=== PATIENT | male | born 1940 | race Caucasian/White ===

== ENCOUNTER → 2017-10-20 09:27 | Outpatient (CLI) | payer MEDICARE, OTHER, SELFPAY ==
[2017-10-20 09:39] LABS: RBC Urine None Seen (0-5/HPF); WBC Urine None Seen (0-5/HPF)
[2017-10-20 10:34] LABS: Add Manual Diff / Slide Review NO; Basophils Percent Auto 0.3 % (0-2); Hematocrit 51.2 % (41-53); Hemoglobin 17.3 g/dL (13.5-17.5); Lymphocytes Percent Auto 25.8 % (25-40); Mean Corpuscular HGB Conc 33.7 % (30-36); Mean Corpuscular Hemoglobin 31.5 PG (26-34); Mean Corpuscular Volume 93.5 fL (80-100); Monocytes Percent Auto 13.3 % (3-14); Neutrophils Absolute Auto 3400 /uL (3000-5900); Neutrophils Percent Auto 56.6 % (50-75); Platelet Count 123 X10^3/uL (150-400); Red Blood Cell Count 5.48 X10^6/uL (4.5-5.9); Red Cell Distribution Width 14.3 % (11.6-14.8); White Blood Cell Count 5.9 X10^3/uL (4.5-11.0)
[2017-10-20 10:41] LABS: Hemoglobin A1C% w Est Avg Glu 6.1 % (4.0-6.0)
[2017-10-20 10:45] LABS: Appearance Urine UA CLEAR; Bilirubin Urine UA NEGATIVE (NEGATIVE); Color Urine UA YELLOW; Glucose Urine UA NEGATIVE (Normal); Ketones Urine UA NEGATIVE (NEGATIVE); Leukocyte Esterase Urine UA NEGATIVE (NEGATIVE); Nitrite Urine UA Negative (Negative); Occult Blood Urine UA NEGATIVE (Negative); Protein Urine UA NEGATIVE (Negative); Urobilinogen Urine UA 0.2 E.U./dL (0.2)
[2017-10-20 11:10] LABS: Amorphous Sediment Urine 1+; Bacteria Urine Occasional (0-1); Culture Indicated Urine Cult Not Indicated; Mucus Urine 1+ (Negative)
[2017-10-20 11:15] LABS: Alanine Aminotransferase 34 IU/L (21-72); Albumin 4.5 g/dL (3.5-5.0); Albumin Globulin Ratio 1.6 (1.0-2.8); Alkaline Phosphatase 58 U/L (38-126); Aspartate Aminotransferase 39 IU/L (17-59); Bilirubin Total 0.8 mg/dL (0.2-1.3); Blood Urea Nitrogen 25 mg/dL (9-20); Calcium 9.7 mg/dL (8.4-10.2); Carbon Dioxide 32 mmol/L (22-32); Chloride 102 mmol/L (98-107); Estimated Glomerular Filt Rate > 60.0 mL/min (>60); Globulin 2.9 g/dL (1.7-4.1); Glucose 113 mg/dL (80-110); HEMOLYSIS < 15 (0-50); Lipase 97 U/L (23-300); Potassium 5.1 mmol/L (3.4-5.1); Sodium 143 mmol/L (137-145); Total Protein 7.4 g/dL (6.3-8.2)
== END ==
PROVIDERS: Family Provider Family Medicine; PCP Family Medicine; Visit Provider Internal Medicine
DX: R10.9 Unspecified abdominal pain (principal); R73.03 Prediabetes
CPT/HCPCS: 36415; 80053; 81001; 83036; 83690; 84443; 85025

== ENCOUNTER → 2017-10-24 07:35 | Outpatient (CLI) | payer MEDICARE, OTHER, SELFPAY ==
[2017-10-24 09:20] LABS: Blood Urea Nitrogen 16 mg/dL (9-20); Estimated Glomerular Filt Rate > 60.0 mL/min (>60)
== END ==
PROVIDERS: Family Provider Family Medicine; PCP Family Medicine; Visit Provider Family Medicine
DX: Z01.812 Encounter for preprocedural laboratory examination (principal)
CPT/HCPCS: 36415; 82565; 84520

== ENCOUNTER → 2017-10-27 10:18 | Outpatient (CLI) | payer MEDICARE, OTHER, SELFPAY ==
--- NOTE | 2017-10-27 10:36 | DI.CT.S_ITS ---
PROCEDURE: CT ABDOMEN PELVIS WO/W CON INDICATIONS: flank pain TECHNIQUE: Optional 5 mm thick noncontrast images acquired from the diaphragm to the symphysis pubis. After the administration of intravenous contrast, 5 mm thick images acquired from the diaphragm to the symphysis pubis after a 10-minute delay. 2 mm thick coronal and sagittal reformats were then performed of the kidneys and ureters. For radiation dose reduction, the following was used: automated exposure control, adjustment of mA and/or kV according to patient size. COMPARISON: None. FINDINGS: Image quality: Excellent. Lung bases: Lung bases are clear. Heart size is normal. Urinary system: Both kidneys are normal in size, without hydronephrosis or nephrolithiasis on pre-contrast images. No perinephric fat stranding. There is normal bilateral renal enhancement. Renal calyces appear normal in morphology when filled with contrast. Opacified portions of both ureters demonstrate normal caliber. Bladder wall thickness is normal. No calcified bladder stones. Other solid organs: Liver is normal in size and enhancement. Gallbladder is partially contracted. Biliary system is non dilated. Pancreas enhances normally. Spleen is normal in size and enhancement but contains scattered punctate granulomatous calcifications. No adrenal nodules. Peritoneum and bowel: Bowel loops demonstrate normal wall thickness and caliber. No free fluid or air. Nodes and vessels: No retroperitoneal or mesenteric adenopathy by size criteria. Aorta and inferior vena cava are normal in size. Abdominal wall: No ventral hernias. Pelvis: No pathologic free pelvic fluid. No inguinal hernias or adenopathy. Extensive sigmoid diverticulosis without acute diverticulitis Bones: No suspicious bony lesions. No vertebral body compression fractures. IMPRESSION: A definite source of current reported persistent flank pain on the right for 6 months is not seen. No hydronephrosis or nephrolithiasis or underlying renal cortical or urothelial mass lesion is seen. Extensive sigmoid diverticulosis but without acute diverticulitis. Old calcified splenic granulomas. Dictated by: Brett Archuleta M.D. on 10/27/2017 at 12:43 Approved by: Brett Archuleta M.D. on 10/27/2017 at 12:46
== END ==
PROVIDERS: Family Provider Family Medicine; PCP Family Medicine; Visit Provider Family Medicine
DX: K57.30 Diverticulosis of large intestine without perforation or abscess without bleeding (principal); R10.9 Unspecified abdominal pain
CPT/HCPCS: 74178; Q9967

== ENCOUNTER → 2018-01-06 07:35 | Outpatient (CLI) | payer MEDICARE, OTHER, SELFPAY ==
[2018-01-06 09:12] LABS: Prostate Specific Antigen Scrn 1.42 ng/mL (0.1-4.0)
== END ==
PROVIDERS: PCP Family Medicine; Visit Provider Family Medicine
DX: N13.8 Other obstructive and reflux uropathy (principal); N40.1 Benign prostatic hyperplasia with lower urinary tract symptoms; Z12.5 Encounter for screening for malignant neoplasm of prostate
CPT/HCPCS: 36415; G0103

== ENCOUNTER → 2018-01-16 08:18 | Outpatient (CLI) | payer MEDICARE, OTHER, SELFPAY ==
[2018-01-16 08:54] LABS: Cholesterol 162 mg/dL (140-199); HDL Cholesterol 49 mg/dL (40-60); LDL Cholesterol Calculated 94 mg/dL (<100); Triglycerides 97 mg/dL (35-150)
== END ==
PROVIDERS: PCP Family Medicine; Visit Provider Family Medicine
DX: R01.1 Cardiac murmur, unspecified (principal)
CPT/HCPCS: 36415; 80061

== ENCOUNTER → 2018-02-11 09:30 | Outpatient (CLI) | payer MEDICARE, OTHER, SELFPAY ==
--- NOTE | 2018-02-11 09:31 | DI.US.S_ITS ---
PROCEDURE: US CAROTID DOPPLER BI INDICATIONS: CAROTID BRUIT TECHNIQUE: Color and pulse Doppler interrogation was performed of both carotid systems, with image documentation and velocity measurements. COMPARISON: None. FINDINGS: Stenosis calculations are based on SRU (Society of Radiologists in Ultrasound) criteria. Right side: Brachial blood pressure: 140/78 mm Hg. Common carotid artery peak systolic velocity: 86 cm/sec. Internal carotid artery peak systolic velocity: 82 cm/sec. Internal carotid artery end diastolic velocity: 24 cm/sec. External carotid artery peak systolic velocity: 104 cm/sec. ICA/CCA peak systolic ratio: 1.0. Ash scale imaging description: Minimal scattered plaque. Percent internal carotid artery stenosis: Less than 50%. Vertebral artery: Not visualized. Left side: Brachial blood pressure: 139/81 mm Hg. Common carotid artery peak systolic velocity: 89 cm/sec. Internal carotid artery peak systolic velocity: 104 cm/sec. Internal carotid artery end diastolic velocity: 22 cm/sec. External carotid artery peak systolic velocity: 113 cm/sec. ICA/CCA peak systolic ratio: 1.2. Ash scale imaging description: Mild scattered plaque. Percent internal carotid artery stenosis: Less than 50%. Vertebral artery: Flow direction is antegrade. IMPRESSION: Less than 50% bilateral internal carotid artery stenoses. Dictated by: Mauro Mcdonald [facility] Interpreted: Keagan Ochoa MD on 02/11/2018 at 11:30 Approved by: Keagan Ochoa M.D. on 02/11/2018 at 12:35
== END ==
PROVIDERS: Family Provider Family Medicine; PCP Family Medicine; Visit Provider Family Medicine
DX: I65.23 Occlusion and stenosis of bilateral carotid arteries (principal); R09.89 Other specified symptoms and signs involving the circulatory and respiratory systems
CPT/HCPCS: 93880

== ENCOUNTER 2018-07-19 05:11 | Observation (INO) | payer MEDICARE, OTHER, SELFPAY ==
[2018-07-19] VITALS (23 sets, daily range): BP systolic 145–179; BP diastolic 64–110; PULSE 75–126; RESP 13–27; TEMP 36.2–37.4; O2SAT 92–97; BMI 29.5
--- NOTE | 2018-07-19 | DI.ECHO.S_ITS ---
[facility]---------+ [facility] +---------+ : : [address] : : : [place], [place] : : : : [id number] : : : : Phone: [phone]+ Echocardiogram Report + + :Name: ELDER SHERWOOD Study Date: 07/19/2018 Height: 70 in : :[facility] Exam Location: [place] Weight: 211 lb : : Gender: Male BSA: 2.1 m2 : :: 1940 Age: 78 yrs BP: 160/87 mmHg: :Reason For Study: Thrombus : :Ordering Physician: Arian : :Hospitalist Performed By: Shamika Page : :Referring: ROJELIO NUÑEZ : + + Interpretation Summary Normal left ventricle size with ejection fraction 60-65%. A bicuspid aortic valve cannot be excluded. Mild aortic stenosis. Mild mitral annular calcification. Mild tricuspid regurgitation. Comparison is made with the echocardiogram of 11/20/2015, there has been no significant change. Procedure: A two-dimensional transthoracic echocardiogram with color flow and Doppler was performed. The study quality was technically adequate. Comparison is made with the echocardiogram of 11/20/2015. The subcostal views were difficult to obtain and are suboptimal in quality. The patient was in normal sinus rhythm during the exam. Left Ventricle: The left ventricle is normal in size. There is normal left ventricular wall thickness. The ejection fraction is estimated to be 60-65%. There are no focal wall motion abnormalities. Diastolic parameters suggest probable normal left ventricular diastolic function and normal filling pressures. Right Ventricle: The right ventricle is normal in size and function. Atria: Both atria are normal in size. There is no Doppler evidence for an interatrial shunt. Mitral Valve: The mitral valve leaflets appear mildly thickened, but open well. There is mild mitral annular calcification. There is trace mitral regurgitation. Aortic Valve: The aortic valve is moderately calcified. A bicuspid aortic valve cannot be excluded. There is mild aortic stenosis. The peak aortic velocity is 2.5 m/sec. The peak aortic velocity on the previous exam was 2.6 m/sec. The calculated aortic valve area is 1.6 cm2. The aortic valve mean gradient is 14.0 mmHg. There is trace aortic regurgitation. Tricuspid Valve: The tricuspid valve is normal in structure and function. There is mild tricuspid regurgitation. Right ventricular systolic pressure is estimated to be 29 mmHg plus the clinically estimated CVP which cannot be estimated on this exam. Pulmonic Valve: The pulmonic valve is not well visualized. There is no pulmonic valvular regurgitation. Great Vessels: The aortic root is normal size. The ascending aorta is normal in size. The pulmonary artery is not well visualized, but is probably normal size. The inferior vena cava was not visualized. Pericardium/ Pleura There is no pericardial effusion. There is no pleural effusion. MMode/2D Measurements & Calculations LVIDd: 3.8 cm LVOT diam: 2.2 cm LVIDs: 2.4 cm Ao root diam: 3.5 cm FS: 37.2 % asc Aorta Diam: 3.3 cm EPSS: 0.76 cm IVSd: 0.80 cm LVPWd: 0.89 cm LV almazan. diameter/BSA (cm/m^2): 1.8 LV sys. diameter/BSA (cm/m^2): 1.1 LA A2 area: 20.7 cm2 RA long axis: 4.6 cm LA A4 area: 18.7 cm2 RA area: 12.3 cm2 LA length (vol): 5.5 cm RA vol: 28.1 ml LA vol: 59.7 ml RA : 13.2 ml/m2 LA vol index: 28.0 ml/m2 RVD1 (basal): 4.2 cm RVD2 (mid): 3.8 cm TAPSE: 2.1 cm Doppler Measurements & Calculations Ao V2 max: 254.1 cm/sec LVOT Max Jose Manuel: 93.9 cm/sec Ao V2 mean: 178.8 cm/sec LV V1 max P.5 mmHg Ao max P.8 mmHg LV V1 VTI: 16.4 cm Ao mean P.0 mmHg JESSICA(I,D): 1.6 cm2 Ao V2 VTI: 39.7 cm JESSICA(V,D): 1.4 cm2 sev ratio: 0.41 JESSICA indexed to BSA (cm^2/m^2): 0.76 MV E max jose manuel: 88.3 cm/sec TR max jose manuel: 269.8 cm/sec MV A max jose manuel: 106.8 cm/sec TR max P.1 mmHg MV E/A: 0.83 PA V2 max: 96.4 cm/sec Med Peak E' Jose Manuel: 6.0 cm/sec PA V2 mean: 68.8 cm/sec E/E' med: 14.8 PA mean P.1 mmHg Lat Peak E' Jose Manuel: 15.0 cm/sec PA Accel Time: 0.08 sec E/E' lat: 5.9 E/e' average: 10.3 MV dec time: 0.21 sec MV P1/2t: 63.0 msec MV /2t max jose manuel: 89.0 cm/sec SV(LVOT): 64.0 ml MVA(2t): 3.5 cm2 Electronically signed by: Maribel Magallon on Reading Physician:07/19/2018 01:36 PM
--- NOTE | 2018-07-19 | DI.MRI.S_ITS ---
PROCEDURE: MR STROKE Pre- and post-contrast brain MRI, non-contrast brain MR angiogram, pre- and postcontrast neck MR angiogram INDICATIONS: Fall, confusion TECHNIQUE: Brain: Noncontrast axial T1 spin echo, axial T2 fast spin echo, sagittal and axial FLAIR, coronal T2 fast spin echo, axial gradient echo, axial diffusion and ADC through the brain. After the administration of contrast, axial 3D VIBE of the cranial vasculature and brain. Brain MRA: Non-contrast 3-D time of flight MR angiogram, with multiple wmctajo-gfrfvrpjb-pfphudztio (MIP) reformats performed. Neck MRA: Axial and sagittal TruFISP through the neck. Coronal dynamic MR angiogram during administration of contrast in the arterial and venous phases, with 3-dimenstional zinkrzw-gcwynfeqz-jkdvkagqtx (MIP) reformats constructed from subtraction images. COMPARISON: None. FINDINGS: Image quality: Excellent. BRAIN: CSF spaces: Ventricles are normal in size and shape. Basal cisterns are patent. No extra-axial fluid collections. Brain: No intracranial bleeds or mass effects. Mild diffuse cerebral volume loss. Mild degree of patchy high FLAIR signal within the periventricular and subcortical white matter. Ash-white matter interface is normal. Diffusion weighted images show no acute ischemic insults. Brainstem appears normal. Normal intravascular flow voids are present. No abnormal intracranial enhancement. Skull and face: Calvarial marrow signal is normal. Orbits appear normal. Sinuses: Sinuses and mastoids are clear. BRAIN MR ANGIOGRAM: Anterior circulation: Intracranial internal carotid arteries are normal in size and enhancement. The flow within the paired anterior cerebral arteries is normal and symmetric. The flow within the middle cerebral arteries is normal and symmetric. The anterior communicating artery is seen. No stenoses, occlusions, or aneurysms. Posterior circulation: The visualized portions of the vertebral arteries demonstrate normal caliber, and join to form a normal appearing basilar artery. Near origin of the left posterior cerebral artery. The flow within the posterior cerebral arteries is normal and symmetric. No stenoses, occlusions, or aneurysms. NECK MR ANGIOGRAM: Carotids: There is a common origin of the innominate and left common carotid arteries, which is patent. The origins of the common carotid arteries appear patent. The calibers and courses of both common carotid arteries are normal. The bifurcation regions appear normal bilaterally. The internal carotid arteries demonstrate normal course and caliber. Posterior circulation: The origins of the vertebral arteries appear patent. More superior portions of both vertebral arteries demonstrate normal course and caliber, and join to form a normal appearing basilar artery. Miscellaneous: Subclavian arteries appear patent. Pre-contrast images through the neck show no soft tissue abnormalities. IMPRESSION: BRAIN MRI: 1. No acute process. No recent infarct. 2. Mild volume loss and small vessel ischemic disease. BRAIN MR ANGIOGRAM: 1. Negative cerebral MR angiography. NECK MR ANGIOGRAM: 1. No internal carotid artery stenosis bilaterally. 2. Patent bilateral vertebral arteries. Dictated by: Stefano Arora M.D. on 07/19/2018 at 13:30 Approved by: Stefano Arora M.D. on 07/19/2018 at 13:34
--- NOTE | 2018-07-19 05:08 | DI.CT.S_ITS ---
PROCEDURE: CT HEAD/BRAIN WO CON INDICATIONS: Possible stroke TECHNIQUE: Noncontrast 4.5 mm thick angled axial sections acquired from the foramen magnum to the vertex, with coronal and sagittal reformats. For radiation dose reduction, the following was used: automated exposure control, adjustment of mA and/or kV according to patient size. COMPARISON: None. FINDINGS: Image quality: Excellent. CSF spaces: Basal cisterns are patent. No extra-axial fluid collections. The ventricles are symmetric in size and shape. Brain: No intracranial bleeds or masses. There is cerebral volume loss for age, with resultant ventricular and sulcal prominence. There are periventricular and deep white matter chronic small vessel ischemic changes. There is intracranial internal carotid artery and vertebral artery atherosclerosis. Skull and face: Calvarium and visualized facial bones appear intact, without suspicious lesions. Sinuses: Visualized sinuses and mastoids are clear. IMPRESSION: No acute intracranial disease process. Dictated by: Vonda Khan MD, PhD on 07/19/2018 at 7:22 Approved by: Vonda Khan MD, PhD on 07/19/2018 at 7:24
--- NOTE | 2018-07-19 05:11 | DI.CT.S_ITS ---
PROCEDURE: CT CERVICAL SPINE WO CON INDICATIONS: fall TECHNIQUE: Noncontrast 3 mm thick sections acquired from the skull base to the T4 level. Sagittal and coronal reformats were then constructed. For radiation dose reduction, the following was used: automated exposure control, adjustment of mA and/or kV according to patient size. COMPARISON: None. FINDINGS: Image quality: Excellent. Bones: No fractures or dislocations. Visualized superior ribs are intact. Spine degenerative disc disease and facet arthropathy. Soft tissues: Prevertebral soft tissues are normal in thickness. No paravertebral hematomas. No apical pneumothoraces. IMPRESSION: No fracture. No acute osseous lesion. If symptoms and/or clinical suspicion for pathology persists, evaluation with MRI may be helpful for further assessment. Dictated by: Vonda Khan MD, PhD on 07/19/2018 at 7:36 Approved by: Vonda Khan MD, PhD on 07/19/2018 at 7:41
--- NOTE | 2018-07-19 05:27 | ED_ITS ---
HPI - General Adult General Chief complaint: Neuro Symptoms/Deficit Stated complaint: Stroke Time Seen by Provider: 07/19/18 05:27 Source: family and EMS Mode of arrival: EMS Limitations: altered mental status History of Present Illness HPI narrative: Patient is a 78-year-old male. History of hypertension and hyper lipidemia. Arrived this morning by EMS after they were called by the patient's . Is reported that the patient's last known normal was approximately 1000 hours last evening. The patient's states that they went to bed without any problems. She states that she heard the patient get up at approximately 0430 this morning which is approximately 45 minutes prior to arrival here in the emergency department. She states that she thinks that she heard him fall. When she went into the bathroom the patient was ?unresponsive? she stated that he was very confused. EMS was called. EMS reports that the patient was not following any commands. Was maintaining his own airway. Was combative. They did try to restrain him with straw for strengths however this was unsuccessful so they gave him 200 mg of ketamine IM prior to arrival. EMS reported that they thought that he had a left-sided facial droop. Patient arrived not on a backboard not in a cervical collar. Related Data Home Medications Medication Instructions Recorded Confirmed ASPIRIN (Aspirin) 81 mg PO Q DAY #0 09/19/10 01/12/18 CALCIUM CITRATE (#CALCIUM CITRATE) 200 mg PO BID #0 09/19/10 01/12/18 MULTIVITAMIN (#MULTIPLE VITAMINS) 1 cap PO Q DAY #0 09/19/10 01/12/18 psyllium husk [Metamucil] 0.52 gm PO Q DAY #0 09/19/10 01/12/18 MELATONIN (#MELATONIN) 3 mg PO HS #0 11/07/10 01/12/18 Methylcobalamin (#[id number]) 1,000 mcg PO Q DAY #0 12/09/11 01/12/18 Previous Rx's Medication Instructions Recorded doxepin 50 mg PO QHS #90 cap 02/13/16 tadalafil [Cialis] 20 mg PO PRN PRN #30 tab 03/30/17 tadalafil 5 mg tablet 5 mg PO Q DAY #90 tab 10/15/17 trazodone 50 mg tablet See Rx Instructions PO BEDTIME 01/12/18 #180 tab tamsulosin [Flomax] 0.8 mg PO QDAY #180 tab 01/25/18 simvastatin 20 mg PO HS #90 tab 03/17/18 testosterone 50 mg/5 gram (1 %) See Rx Instructions TOPICAL Q DAY 03/17/18 transdermal gel #180 tube lisinopril 20 mg tablet 20 mg PO BID #180 tab 04/30/18 omeprazole 20 mg tablet,delayed 20 mg PO Q DAY #90 cap 04/30/18 release Allergies Allergy/AdvReac Type Severity Reaction Status Date / Time No Known Drug Allergies Allergy Unverified 01/12/18 09:45 Review of Systems Review of Systems ROS Unobtainable: Unobtainable due to medical condition [facility] Medical History Hayfever (Chronic 1995) Hypertension (Chronic 1995) 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 Sister No problems noted. Social History Smoking Status: Former smoker Family History Brother Age: 71 Leukemia in remission Mother Heart disease Father Stroke Sister No problems noted. Sister No problems noted. Social History Smoking Status: Former smoker Exam Initial Vital Signs Initial Vital Signs: Vital Signs Pulse Rate 121 H 07/19/18 05:23 Respiratory Rate 22 07/19/18 05:23 Blood Pressure 176/110 H 07/19/18 05:23 Pulse Oximetry 94 07/19/18 05:23 Const General: well developed and well groomed Limitations: altered mental status HENMT Head: normal to inspection and normocephalic Nose: external nose normal Face and sinus: normal facial exam Mouth: lip abnormal (Dried blood to left lower lip) Eyes Other: Pupils 3 mm bilaterally and minimally reactive. Equal bilateral Chest Chest: normal inspection of the chest and No crepitus Resp Effort & Inspection: normal respiratory effort Auscultation: clear to auscultation bilaterally Cardio Rate: tachycardic Rhythm: regular rhythm Pulses: radial pulses present GI Inspection: non-distended Palpation: soft Skin Lesions: no lesions Rashes: no rashes Neuro Other: Initial neurologic exam completed approximately 30 minutes after his IM ketamine. Patient would not follow commands. Did respond to painful stimuli with the right lower extremity. No response with a left lower extremity or left upper extremity. Right upper extremity has a flexed shoulder above his head. Patient is holding his arm up into the air. He is looking off to the left. Extrem General: normal to inspection and capillary refill normal Psych Appearance: well kempt Scores GCS Maye coma scale eye opening: Spontaneous [place] coma scale verbal response: None [place] coma scale motor response: None Maye coma scale total score: 6 Course Orders Ordered: ED Orders 07/19/18 05:08 CT head/brain wo con Stat EKG-12 Lead Stat 07/19/18 05:11 CT cervical spine wo con Stat 07/19/18 05:25 Ammonia (NH3) Stat Complete Blood Count AUTO DIFF Stat Comprehensive Metabolic Panel Stat Creatine Kinase Stat Ethanol (ETOH) Stat Lipase Stat Partial Thromboplastin Time Stat Prolactin Stat Prothrombin Time INR Stat Troponin I Stat 07/19/18 05:41 CT angio head and neck Stat 07/19/18 07:07 Consult to Physician Routine Sodium Chloride (Normal Saline 0.9%) 1,000 mls @ 125 mls/hr IV CONT JOAQUIN Last Admin: 07/19/18 06:09 Dose: 125 mls/hr Vital Signs - 8 hr 07/19/18 05:23 07/19/18 05:30 07/19/18 05:33 Temperature 97.1 F L Pulse Rate 121 H 123 H 121 H Respiratory Rate 22 22 24 Blood Pressure 176/110 H Blood Pressure [Left Arm] 176/110 H 175/96 H Pulse Oximetry 94 93 94 07/19/18 05:35 07/19/18 05:37 07/19/18 05:40 Temperature Pulse Rate 126 H 115 H 116 H Respiratory Rate 27 H 24 20 Blood Pressure Blood Pressure [Left Arm] 179/105 H 168/94 H 168/94 H Pulse Oximetry 94 92 93 07/19/18 05:45 07/19/18 05:50 07/19/18 06:00 Temperature Pulse Rate 111 H 108 H 108 H Respiratory Rate 25 H 18 22 Blood Pressure Blood Pressure [Left Arm] 165/108 H 160/66 H 159/67 H Pulse Oximetry 95 93 93 07/19/18 06:05 07/19/18 06:10 07/19/18 06:20 Temperature Pulse Rate 103 H 111 H 113 H Respiratory Rate 25 H 22 22 Blood Pressure Blood Pressure [Left Arm] 158/78 H 169/103 H 150/78 H Pulse Oximetry 95 92 94 07/19/18 07:00 Temperature Pulse Rate 91 H Respiratory Rate 26 H Blood Pressure Blood Pressure [Left Arm] 157/83 H Pulse Oximetry 92 Medical Decision Making Lab Data Lab results reviewed: Yes I reviewed the patient's lab results. Result diagrams: 07/19/18 05:25 07/19/18 05:25 Lab Results 07/19/18 07/19/18 07/19/18 Range/Units 05:25 05:25 05:25 WBC 12.6 H (4.5-11.0) X10^3/uL RBC 5.50 (4.5-5.9) X10^6/uL Hgb 17.3 (13.5-17.5) g/dL Hct 51.7 (41-53) % MCV 94.0 (80-100) fL MCH 31.5 (26-34) PG MCHC 33.5 (30-36) % RDW 13.8 (11.6-14.8) % Plt Count 117 L (150-400) X10^3/uL Neut % (Auto) 79.2 H (50-75) % Lymph % (Auto) 10.3 L (25-40) % [place] % (Auto) 8.7 (3-14) % Eos % (Auto) 1.5 L (2-4) % Baso % (Auto) 0.3 (0-2) % Neut # (Auto) 45646 H (9467-6097) /uL Lymph # (Auto) 1300 (3033-6945) /uL [place] # (Auto) 1100 H (0-900) /uL Eos # (Auto) 200 (0-450) /uL Baso # (Auto) 0 (0-100) /uL PT 10.6 (10.1-12.7) SECONDS INR 0.9 (0.9-1.3) APTT 28 (26.4-36.2) SECONDS Sodium (137-145) mmol/L Potassium (3.4-5.1) mmol/L Chloride (98-107) mmol/L Carbon Dioxide (22-32) mmol/L BUN (9-20) mg/dL Creatinine (0.66-1.25) mg/dL Estimated GFR (>60) mL/min BUN/Creatinine Ratio (6-22) Glucose (80-110) mg/dL Calcium (8.4-10.2) mg/dL Total Bilirubin (0.2-1.3) mg/dL AST (17-59) IU/L ALT (21-72) IU/L Alkaline Phosphatase (38-126) U/L Ammonia 13.0 (9-30) umol/L Total Creatine Kinase (55-170) U/L Troponin I (0.01-0.034) ng/mL Total Protein (6.3-8.2) g/dL Albumin (3.5-5.0) g/dL Globulin (1.7-4.1) g/dL Albumin/Globulin Ratio (1.0-2.8) Lipase (23-300) U/L Prolactin (3.7-17.9) ng/mL Ethyl Alcohol mg/dL 07/19/18 07/19/18 07/19/18 Range/Units 05:25 05:25 05:25 WBC (4.5-11.0) X10^3/uL RBC (4.5-5.9) X10^6/uL Hgb (13.5-17.5) g/dL Hct (41-53) % MCV (80-100) fL MCH (26-34) PG MCHC (30-36) % RDW (11.6-14.8) % Plt Count (150-400) X10^3/uL Neut % (Auto) (50-75) % Lymph % (Auto) (25-40) % [place] % (Auto) (3-14) % Eos % (Auto) (2-4) % Baso % (Auto) (0-2) % Neut # (Auto) (2158-5408) /uL Lymph # (Auto) (0437-3777) /uL [place] # (Auto) (0-900) /uL Eos # (Auto) (0-450) /uL Baso # (Auto) (0-100) /uL PT (10.1-12.7) SECONDS INR (0.9-1.3) APTT (26.4-36.2) SECONDS Sodium 139 (137-145) mmol/L Potassium 3.6 (3.4-5.1) mmol/L Chloride 103 (98-107) mmol/L Carbon Dioxide 16 L (22-32) mmol/L BUN 19 (9-20) mg/dL Creatinine 1.00 (0.66-1.25) mg/dL Estimated GFR > 60.0 (>60) mL/min BUN/Creatinine Ratio 19.0 (6-22) Glucose 171 H (80-110) mg/dL Calcium 9.4 (8.4-10.2) mg/dL Total Bilirubin 0.6 (0.2-1.3) mg/dL AST 42 (17-59) IU/L ALT 36 (21-72) IU/L Alkaline Phosphatase 79 (38-126) U/L Ammonia (9-30) umol/L Total Creatine Kinase 346 H (55-170) U/L Troponin I 0.029 (0.01-0.034) ng/mL Total Protein 7.6 (6.3-8.2) g/dL Albumin 4.6 (3.5-5.0) g/dL Globulin 3.0 (1.7-4.1) g/dL Albumin/Globulin Ratio 1.5 (1.0-2.8) Lipase 131 (23-300) U/L Prolactin 18.3 H (3.7-17.9) ng/mL Ethyl Alcohol < 10 mg/dL Imaging Data CT scan - head: Radiologist's impression: Generalized involutional changes noted, consistent with age. No acute abnormality identified. CT cervical spine: Radiologist's impression: No fractures evident. Multilevel foraminal stenosis secondary to degenerative changes. CT angio head and neck: Radiologist's impression: No vascular occlusion or significant stenosis is appreciated. ECG Data Attestation: I personally reviewed and interpreted this ECG as follows: Prior ECG tracings: not available for review Interpretation: Sinus tachycardia Ventricular rate of 122 Normal axis Normal QRS Normal QTC Nonspecific ST T wave changes MDM Narrative Medical decision making narrative: Upon arrival patient was immediately taken to the CT scanner. Cervical collar was placed secondary to the possibility of a fall. Upon return to the room patient was placed on capnography. He was maintaining his own airway. Patient has spontaneously moved right upper and lower extremity. I have not seen him move his left side. Difficult to obtain neurologic exam secondary to it being only 30 minutes since his ketamine injection. Awaiting CT results. 0541: CT scan results faxed. No acute changes. Waiting CT cervical spine. Will obtain CTA head and neck patient is still sedated from ketamine. 0600: While on the CT scanner for the CT the head neck patient did turn himself on his side. He still not following commands however is now responding to painful stimuli with the left lower extremity. He has now moved all 4 extremities spontaneously. Is still looking to the left. 0620: Moving all 4 extremities. Turned onto his side and then onto his abdo men. The CT of his cervical spine was unremarkable. He is somewhat directable however has not spoken. Will try to avoid sedation as much as possible in order to obtain a better neurologic exam. 0648: Discussed the case with Dr. Hatfield with the stroke team at [facility] who evaluated the images who agrees the patient is not a tPA candidate. Is not a retrieval candidate. He stated that the patient did need MRI. Stated that even if this was a seizure he would not be necessarily trans ferred for an EEG. Discussed the case with Dr. Kent. Will admit the patient to the ICU for elaine nued evaluation with the ultimate goal of obtaining an MRI. Patient is not directable enough to be still for an MRI currently. Would like to hold on any sedation to continue to see his neurologic improvement. Upon my re-evaluation patient now is able to squeeze my hands. He is able to smile. Does not specifically answer any questions. Dr. Hatfield stated that if the patient's neurologic status does not improve throughout the day that they could be contacted again for re-evaluation and potential transfer. Discussed the admission with the patient's who is at bedside expressed understanding and agreement. Critical Care Time Critical Care Time: Yes Total Critical Care Time: 45 Attestation: The high probability of a clinically significant, sudden or life threatening deterioration of the neurologic system(s) required my full and direct attention, intervention and personal management. The aggregate critical care time was 45 minutes. This time is in addition to time spent performing reported procedures but includes the following: [] Data Review and interpretation [] Patient assessment and monitoring of vital signs [] Documentation [] Medication orders and management Discharge Plan Departure Patient Disposition: Admitted As Inpatient Clinical Impression: Altered mental status Qualifiers: Altered mental status type: unspecified Qualified Code(s): R41.82 - Altered mental status, unspecified
[2018-07-19 05:34] LABS: Add Manual Diff / Slide Review NO; Basophils Absolute Auto 0 /uL (0-100); Basophils Percent Auto 0.3 % (0-2); Eosinophils Absolute Auto 200 /uL (0-450); Eosinophils Percent Auto 1.5 % (2-4); Hematocrit 51.7 % (41-53); Hemoglobin 17.3 g/dL (13.5-17.5); Lymphocytes Absolute Auto 1300 /uL (1100-4500); Lymphocytes Percent Auto 10.3 % (25-40); Mean Corpuscular HGB Conc 33.5 % (30-36); Mean Corpuscular Hemoglobin 31.5 PG (26-34); Monocytes Absolute Auto 1100 /uL (0-900); Monocytes Percent Auto 8.7 % (3-14); Neutrophils Absolute Auto 10000 /uL (1500-7000); Neutrophils Percent Auto 79.2 % (50-75); Platelet Count 117 X10^3/uL (150-400); Red Cell Distribution Width 13.8 % (11.6-14.8); White Blood Cell Count 12.6 X10^3/uL (4.5-11.0)
[2018-07-19 05:41] LABS: INR 0.9 (0.9-1.3); Prothrombin Time 10.6 SECONDS (10.1-12.7)
--- NOTE | 2018-07-19 05:41 | DI.CT.S_ITS ---
PROCEDURE: CT ANGIO HEAD AND NECK INDICATIONS: Possible stroke TECHNIQUE: Pre-contrast 4.5 mm thick sections acquired from the foramen magnum to the vertex. After the administration of intravenous contrast, 1 mm thick sections acquired from the aortic arch through the [place] of [place]. Post-contrast 4.5 mm thick sections then re-acquired from the foramen magnum to the vertex. 3-dimensional hmskoxt-uzncoaliy-usjpkudiap (MIP) and/or volume rendering reformats were acquired of the central intracranial vasculature and neck separately. COMPARISON: [facility], CT, CT HEAD/BRAIN WO CON, 07/19/2018, 5:11. FINDINGS: Image quality: Excellent. BRAIN: CSF spaces: Ventricles are normal in size and shape. Basal cisterns are patent. No extra-axial fluid collections. Brain: No midline shift. No intracranial bleeds or masses. Ash-white matter interface appears intact. Skull and face: Calvarium and facial bones appear intact, without suspicious lesions. Orbits appear normal. Sinuses: Sinuses and mastoids are clear. HEAD CT ANGIOGRAPHY: Anterior circulation: Intracranial internal carotid arteries are normal in flow. Mild atherosclerotic calcifications noted in the cavernous and clinoid segments of the internal carotid arteries bilaterally. The flow within the paired anterior cerebral arteries is normal and symmetric. The flow within the middle cerebral arteries is normal and symmetric. The anterior communicating artery is seen. No aneurysms are seen. Posterior circulation: Visualized portions of the vertebral arteries demonstrate normal caliber, and join to form a normal appearing basilar artery. Flow within the posterior cerebral arteries is normal and symmetric. 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 No aneurysms are seen. The dural sinuses demonstrate normal postcontrast enhancement. NECK CT ANGIOGRAPHY: Carotid system: The great vessels demonstrate a conventional anatomy as they arise from the aortic arch. The origins of the common carotid arteries appear patent. The common carotid arteries demonstrate normal caliber and courses. Mild atherosclerotic calcification noted in the origin of the right internal carotid artery which does not cause measurable stenosis.. Posterior circulation: The origins of the vertebral arteries both appear widely patent. The more superior extracranial portions of both vertebral arteries also demonstrate normal courses and calibers. They join to form a normal appearing basilar artery. Soft tissues: Visualized neck soft tissues demonstrate no suspicious abnormalities. Bones: No suspicious bony lesions. Spine degenerative disc disease and facet arthropathy. Visualized cervical spine appears normally aligned. IMPRESSION: 1. No acute intracranial disease process. 2. No large vessel occlusion, hemodynamically significant stenosis, vascular dissection or aneurysm. Any quantitative measurements of stenosis were performed using NASCET criteria. Dictated by: Vonda Khan MD, PhD on 07/19/2018 at 7:44 Approved by: Vonda Khan MD, PhD on 07/19/2018 at 7:50
[2018-07-19 05:43] LABS: PTT Partial Thromboplastin Tim 28 SECONDS (26.4-36.2)
[2018-07-19 05:45] LABS: Alanine Aminotransferase 36 IU/L (21-72); Albumin 4.6 g/dL (3.5-5.0); Albumin Globulin Ratio 1.5 (1.0-2.8); Alkaline Phosphatase 79 U/L (38-126); Aspartate Aminotransferase 42 IU/L (17-59); Bilirubin Total 0.6 mg/dL (0.2-1.3); Blood Urea Nitrogen 19 mg/dL (9-20); Calcium 9.4 mg/dL (8.4-10.2); Carbon Dioxide 16 mmol/L (22-32); Chloride 103 mmol/L (98-107); Estimated Glomerular Filt Rate > 60.0 mL/min (>60); Ethanol (ETOH) < 10 mg/dL; Glucose 171 mg/dL (80-110); HEMOLYSIS 37 (0-50); Lipase 131 U/L (23-300); Potassium 3.6 mmol/L (3.4-5.1); Sodium 139 mmol/L (137-145); Total Protein 7.6 g/dL (6.3-8.2)
[2018-07-19 05:56] LABS: Creatine Kinase 346 U/L (55-170); Troponin I 0.029 ng/mL (0.01-0.034)
[2018-07-19] MEDS: SODIUM CHLORIDE 0.9% 1,000 ML 125 ML IV (06:09)
--- NOTE | 2018-07-19 06:21 | PC.NURSE ---
Pt now awake and very restless. Sitting up in bed, trying to turn over in bed. Nonverbal. at bedside. C Spine cleared by Dr Rollins and C Collar removed.
--- NOTE | 2018-07-19 06:32 | PC.NURSE ---
Addendum entered by Damaris Villarreal R.N. 07/19/18 06:42: reports that she heard thumping in the bathroom that woke her up. Original Note: Multiple areas of bruising noted to arms and feet. Blood noted to lips with areas of bleeding to tongue. Skin tear to right hand and right lateral ankle. Pt now moving all extremities equally. He has turned over in bed and is now lying prone. , Juany, denies any hx of seizures.
[2018-07-19 06:51] LABS: Prolactin 18.3 ng/mL (3.7-17.9)
[2018-07-19 10:12] LABS: Appearance Urine UA CLEAR; Bilirubin Urine UA NEGATIVE (NEGATIVE); Color Urine UA YELLOW; Glucose Urine UA NEGATIVE (Negative); Ketones Urine UA 2+ (NEGATIVE); Leukocyte Esterase Urine UA NEGATIVE (NEGATIVE); Nitrite Urine UA NEGATIVE (Negative); Occult Blood Urine UA TRACE-INTACT (Negative); Protein Urine UA TRACE (Negative); Urobilinogen Urine UA 0.2 E.U./dL (0.2)
--- NOTE | 2018-07-19 10:30 | P.HP_ITS ---
History of Present Illness Date Patient Seen: 07/19/18 Time Patient Seen: 08:21 Chief complaint: Stroke Narrative: CVA Patient admitted this morning from the ER to ICU. History is from patient and from as well as from emergency room physician. Patient recalls going to bed last night feeling normal. Approximately 4:00 a.m. this morning he awakened to go urinate. This is not unusual for him. He has no recollection of the ensuing events. He is unaware of any dizziness prodrome chest pain headaches. His relates that she heard some racquet went into the bathroom and he was on the floor laying on his back no actual seizure activity but seemed to be just reached like he was trying to get up. His eyes were open and he apparently said nothing however. He was breathing on his own and eyes are open. Paramedics were called. Apparently got pretty agitated there and gave him 1 or 2 shots of Versed on the way to the hospital. He has no recollection of the event or the ensuing minutes. His relates that he 1st woke at approximately 7:30 a.m.. The patient was evaluated in the ER contact with neurologic consult at [facility] felt he did not have any surgical intervention appropriate. Studies done here were all normal. Recommendation was to the admit for observation and if the mental status had not improved over the next several hours that might reconsider transfer. The concern being a whether not this was indeed a TIA versus medication effects versus seizure. Patient has no history of seizure disorder or TIA. He has a history of hyperlipidemia. And hypertension. 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 Sister No problems noted. Social History household members: family Smoking Status: Former smoker Family & Social History Family History Brother Age: 71 Leukemia in remission Mother Heart disease Father Stroke Sister No problems noted. Sister No problems noted. Social History: household members family Prior Living Arrangements House Safety & Behavioral: Feels Safe in Current Yes Environment Been Physically Hurt or No Threatened By a Person Suicidal Ideation Description None Suicide Plan Description No Plan Tobacco & Substance use: Smoking Status Former smoker alcohol intake frequency holiday/special occasion Substance Use Type does not use Meds Home Medications Medication Instructions Recorded Confirmed Type ASPIRIN (Aspirin) 81 mg PO Q DAY #0 09/19/10 01/12/18 History CALCIUM CITRATE (#CALCIUM CITRATE) 200 mg PO BID #0 09/19/10 01/12/18 History MULTIVITAMIN (#MULTIPLE VITAMINS) 1 cap PO Q DAY #0 09/19/10 01/12/18 History psyllium husk [Metamucil] 0.52 gm PO Q DAY #0 09/19/10 01/12/18 History Methylcobalamin (#B06-LYMAQX) 1,000 mcg PO Q DAY #0 12/09/11 01/12/18 History tadalafil 5 mg tablet 5 mg PO Q DAY #90 tab 10/15/17 07/19/18 Rx trazodone 50 mg tablet See Rx Instructions PO BEDTIME 01/12/18 07/19/18 Rx #180 tab tamsulosin [Flomax] 0.8 mg PO QDAY #180 tab 01/25/18 07/19/18 Rx simvastatin 20 mg PO HS #90 tab 03/17/18 07/19/18 Rx testosterone 50 mg/5 gram (1 %) See Rx Instructions TOPICAL Q DAY 03/17/18 07/19/18 Rx transdermal gel #180 tube lisinopril 20 mg tablet 20 mg PO BID #180 tab 04/30/18 07/19/18 Rx omeprazole 20 mg tablet,delayed 20 mg PO Q DAY #90 cap 04/30/18 07/19/18 Rx release Allergies Allergy/AdvReac Type Severity Reaction Status Date / Time No Known Drug Allergies Allergy Unverified 01/12/18 09:45 Review of Systems Review of Systems All systems reviewed & are unremarkable except as noted in HPI and below Exam Vital Signs (past 8 hours): - 07/19/18 05:23 07/19/18 05:30 07/19/18 05:33 Temperature 97.1 F L Pulse Rate 121 H 123 H 121 H Respiratory Rate 22 22 24 Blood Pressure 176/110 H Blood Pressure [Left Arm] 176/110 H 175/96 H Pulse Oximetry 94 93 94 07/19/18 05:35 07/19/18 05:37 07/19/18 05:40 Temperature Pulse Rate 126 H 115 H 116 H Respiratory Rate 27 H 24 20 Blood Pressure Blood Pressure [Left Arm] 179/105 H 168/94 H 168/94 H Pulse Oximetry 94 92 93 07/19/18 05:45 07/19/18 05:50 07/19/18 06:00 Temperature Pulse Rate 111 H 108 H 108 H Respiratory Rate 25 H 18 22 Blood Pressure Blood Pressure [Left Arm] 165/108 H 160/66 H 159/67 H Pulse Oximetry 95 93 93 07/19/18 06:05 07/19/18 06:10 07/19/18 06:20 Temperature Pulse Rate 103 H 111 H 113 H Respiratory Rate 25 H 22 22 Blood Pressure Blood Pressure [Left Arm] 158/78 H 169/103 H 150/78 H Pulse Oximetry 95 92 94 07/19/18 07:00 07/19/18 07:24 07/19/18 08:56 Temperature 97.4 F L Pulse Rate 91 H 82 88 Respiratory Rate 26 H 18 16 Blood Pressure 145/64 H Blood Pressure [Left Arm] 157/83 H 157/83 H Pulse Oximetry 92 93 94 Oxygen Delivery Method Room Air Narrative Exam Narrative: Gen.: The patient is examined in his bed in the emergency room resting on his back quiet responsive. Skin: Warm well perfused. No prominent lesions. Nonicteric. He does have several bruises on his knees and legs and right arm his tongue seems a bit swollen but no abrasions seen HEENT: PERRL., normal EOM, external ears canals TMs normal, nasal mucosa normal and midline septum, oropharynx without lesions. Neck: Trachea midline. Thyroid nontender and not enlarged. Carotids without bruits. No lymphadenopathy Back: No obvious deformity or tenderness. Chest: Clear to P&A. Symmetric. CV: RRR no murmur or gallop. No JVD. Abdomen: No masses bruits tenderness or visceromegaly. Neuro: [Cranial nerves II through XII grossly intact. Sensory and motor exams intact. Gait not tested. Finger-nose exam was done with difficulty initially seemed like he had some problems understanding same he did have an intention tremor with his left hand compared to his right Mental status: Alert and oriented. He knew the hospital the town the state the President today's date was July 22, 2016 however Extremities: No cyanosis clubbing or edema Musculoskeletal: No gross deformities there is a very subtle perhaps difference in the strength of left upper and lower extremity compared to the right relatively minor and subtle if it is present all Lymphatics: Negative for lymphadenopathy, supraclavicular axillary or inguinal Objective Labs Result Diagrams: 07/19/18 05:25 07/19/18 05:25 Labs: Laboratory Results - last 24 hr 07/19/18 07/19/18 07/19/18 05:25 05:25 05:25 WBC 12.6 H RBC 5.50 Hgb 17.3 Hct 51.7 MCV 94.0 MCH 31.5 MCHC 33.5 RDW 13.8 Plt Count 117 L Neut % (Auto) 79.2 H Lymph % (Auto) 10.3 L Hardeman % (Auto) 8.7 Eos % (Auto) 1.5 L Baso % (Auto) 0.3 Neut # (Auto) 32117 H Lymph # (Auto) 1300 Hardeman # (Auto) 1100 H Eos # (Auto) 200 Baso # (Auto) 0 PT 10.6 INR 0.9 APTT 28 Sodium Potassium Chloride Carbon Dioxide BUN Creatinine Estimated GFR BUN/Creatinine Ratio Glucose Calcium Total Bilirubin AST ALT Alkaline Phosphatase Ammonia 13.0 Total Creatine Kinase Troponin I Total Protein Albumin Globulin Albumin/Globulin Ratio Lipase Prolactin Ethyl Alcohol 07/19/18 07/19/18 07/19/18 05:25 05:25 05:25 WBC RBC Hgb Hct MCV MCH MCHC RDW Plt Count Neut % (Auto) Lymph % (Auto) Hardeman % (Auto) Eos % (Auto) Baso % (Auto) Neut # (Auto) Lymph # (Auto) Hardeman # (Auto) Eos # (Auto) Baso # (Auto) PT INR APTT Sodium 139 Potassium 3.6 Chloride 103 Carbon Dioxide 16 L BUN 19 Creatinine 1.00 Estimated GFR > 60.0 BUN/Creatinine Ratio 19.0 Glucose 171 H Calcium 9.4 Total Bilirubin 0.6 AST 42 ALT 36 Alkaline Phosphatase 79 Ammonia Total Creatine Kinase 346 H Troponin I 0.029 Total Protein 7.6 Albumin 4.6 Globulin 3.0 Albumin/Globulin Ratio 1.5 Lipase 131 Prolactin 18.3 H Ethyl Alcohol < 10 patient underwent evaluation emergency room including CT which was normal. CT a normal period the above laboratory studies noted Assessment & Plan Assessment & Plan narrative: 1. Neurologic event at home. Consistent with seizure, CVA. Less likely would be a cardiac arrhythmia. Patient currently is is close to back being normal except he is little bit slow to respond difficult to tell how much of his neurologic exam now is read as result of the Versed given in the field. Patient will be admitted here for observation of his neurologic status has improved significantly since emergency room. Anticipating if the affects of the Versed will resolve over the next couple hours. As per recommendation from the neurologist if he does not improve significantly by say noon today reconsider transfer but unlikely. MRI to be scheduled. He will be monitored on telemetry. Assuming the MRI/telemetry is normal patient we admitted overnight for observation will eventually need to have an EEG done for further evaluation for questionable seizure. Echocardiogram to be ordered per routine. 2. Hypertension stable. 3. Presumably hyperlipidemia being treated
[2018-07-19 10:33] LABS: Bacteria Urine Occasional (0-1); RBC Urine 0-1/HPF (0-5/HPF); Squamous Epithelial Cell Urine 0-1 /HPF (0-5/HPF); WBC Urine 0-1/HPF (0-5/HPF)
[2018-07-19 10:34] LABS: Culture Indicated Urine Cult Not Indicated; Hyaline Casts Urine 0-1/LPF
--- NOTE | 2018-07-19 11:18 | PC.NURSE ---
0868 Patient and his arrived to room 102 ICU from ER. Patient awake, alert and cooperative. Knows he is at [facility], knows the month. Unable to remember date or year correctly. States he does not remember coming into the ER. Patient denies pain, except for his right shoulder sometimes bothers him chronically. Multiple areas of redness with bruising noted to arms, elbows, left buttocks, and bilateral knees, and right owen. As well as a small dry skin tear to right hand and abrasion to lip. NIH 1. Had trouble using urinal at bedside, and wanted to attempt to walk into bathroom, 1-2 assistance with walker for safety and was able to void (patient reports some hesitancy r/t prostate). Swallow screen completed without difficulty. To MRI at 1100, plan for ECHO today and PT eval as ordered. Continue to monitor and follow closely.
[2018-07-19] MEDS: ASPIRIN EC 81 MG TABLET PO (13:36)
[2018-07-19] MEDS: LISINOPRIL 20 MG TABLET 40 MG PO (13:36)
--- NOTE | 2018-07-19 14:53 | PC.NURSE ---
Patient tolerated a late lunch. SLIV. SR on telemetry. Denies pain. Resting comfortably in bed at this time. CAll light within reach, bed alarm on for safety.
--- NOTE | 2018-07-19 15:42 | PT.IIE ---
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) BPH (benign prostatic hyperplasia) (Resolved 2003) Chicken pox (Resolved 1954) Hemorrhoids (Resolved 2003) Lung cancer (Resolved 2002) Measles (Resolved 1954) Rheumatic fever (Resolved 1956) Physical Therapy Inpatient Evaluation/Re-Eval M1 PT/OT-IP Prior Functional Status Start: 07/19/18 15:42 Freq: NEEDED Status: Active Protocol: Document 07/19/18 15:42 RS (Rec: 07/19/18 15:52 RS [id number]) Medical Review Prior Functional Status Medical History Reviewed Yes Diet/Fluid Consistency Regular Communication no known deficits Mobility and Gait ind Activities of Daily Living and IADL's ind Prior Functional Level (Other details) no falls other than this occurance Social History Household Members spouse family Living Arrangements House Number of Floors (Floors) Two Floors Number of Stairs To Enter/Railing? 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 M2 PT-IP Current Condition Start: 07/19/18 15:42 Freq: NEEDED Status: Active Protocol: Document 07/19/18 15:42 RS (Rec: 07/19/18 15:52 RS [id number]) Physical Therapy Current Condition Current Condition Evaluation Date 07/19/18 Treatment Diagnosis no deficits/impairments/ limitations Onset Date 07/19/18 M3 PT-IP Subjective Start: 07/19/18 15:42 Freq: NEEDED Status: Active Protocol: Document 07/19/18 15:42 RS (Rec: 07/19/18 15:52 RS [id number]) Subjective Physical Therapy Visit Type Type Initial Evaluation Visit Start Time 15:12 Visit Stop Time 15:42 Total Visit Minutes 30 Physical Therapy Visit Comments Patient Comments Pt reports feeling like he's 85-90% back to normal. Patient Goals go home tomorrow Therapy Pain Assessment Pain When Pain Assessed At Rest Pain Present Pain Present Denied Pain M4 PT-IP Mobility and Gait Start: 07/19/18 15:42 Freq: NEEDED Status: Active Protocol: Document 07/19/18 15:42 RS (Rec: 07/19/18 15:52 RS [id number]) PT-Bed Mobility Assessment Supine to Sit Supine to Sit Independent Sit to Supine Sit to Supine Independent Scooting Scooting to Edge of Bed Independent Scooting Up and Down in Bed Independent PT-Transfer Assessment Sit to and From Stand Sit to and from Stand Independent Equipment Transfer Assistive Device None Transfer Ability Level of Assist Independent Comments Mobility Comments can mobilize independently without LOB or difficulty Gait Assessment Gait Gait Assistance Required: Independent Distance (Feet) 250 Assistive Devices Assistive Device None Gait Deviations General Gait Pattern Within Normal Limits Comments Gait Comments WFL, no LOB, low fall risk Stair Climbing Assessment Evaluation Level of Assist On Stairs Independent Technique/Endurance Stair Climbing Direction Ascend and Descend PT-Balance Assessment Sitting Balance and Reactions Static Sitting Balance Ability Normal Dynamic Sitting Balance Ability Normal Standing Balance and Reactions Static Standing Balance Ability Normal Dynamic Standing Balance Ability Good Device Used none M5 PT-IP Objective Assessments Start: 07/19/18 15:42 Freq: NEEDED Status: Active Protocol: Document 07/19/18 15:42 RS (Rec: 07/19/18 15:52 [id number]) Orientation Orientation/Cognition Level of Alertness Alert Orientation Name Age Birthday Month Date Year Day of Week Place Situation Language Function Ability No Deficits Noted Safety Awareness Understands Safety Issues Memory Description No Deficits Noted Gross Range of Motion Upper Extremity ROM Assessment Within Functional Limits Lower Extremity ROM Assessment Within Functional Limits Strength Upper Extremity Strength Assessment Within Functional Limits Lower Extremity Strength Assessment Within Functional Limits Coordination Assessment Gross Coordination Gross Coordination WNL Sensation Assessment Sensation Gross Sensation WNL M6 PT-IP Treatment Start: 07/19/18 15:42 Freq: NEEDED Status: Active Protocol: Document 07/19/18 15:42 RS (Rec: 07/19/18 15:52 RS [id number]) Physical Therapy Treatment Education Education Provided Safety M7 PT-IP Assessment and Plan Start: 07/19/18 15:42 Freq: NEEDED Status: Active Protocol: Document 07/19/18 15:42 RS (Rec: 07/19/18 15:52 [id number]) PT Summary Assessment and Plan Potential Rehabilitation Potential Excellent Status of Condition at Evaluation Stable Summary Progress Towards Goals Safe For Discharge Assessment Summary Pt presents after being found down for unknown reason. Pt reports feeling a little weak and stiff but is otherwise 85- 90% back to normal. Pt evaluated and found to be at functional baseline, no deficits, impairments, or limitations were identified. Pt is completely independent currently with mobility but recommend nursing staff provide supervision with mobility due to fall early this morning. Patient is safe to discharge home once medically ready. Pt has no acute Pt needs, will sign off. Frequency of Treatment Frequency Of Treatment Discharge Recommendations To Nursing Amount of Assist Needed Standby Assistance Discharge Recommendations PT Discharge Recommendations Home
[2018-07-19] MEDS: SIMVASTATIN 20 MG TABLET PO (21:21)
--- NOTE | 2018-07-19 22:24 | PC.NURSE ---
Pt with uneventful shift. Pt received laying in bed. Pt is oriented to self, place, circumstance, month. Pt is not fully oriented to year, with prompting by was able to come up with correct year, but on second assessment pt stated 2015 when asked what year it was. Pt was otherwise with no notable neuro deficits. Pt on RA, tolerating diet, cleared by PT to walk with supervision. Voiding in bathroom. Will continue to monitor, notify MD with changes.
[2018-07-20 00:26] VITALS: BP 158/100; PULSE 72; RESP 18; TEMP 36.6; O2SAT 97
[2018-07-20 03:09] VITALS: BP 147/100; PULSE 71; RESP 18; TEMP 36.7; O2SAT 94
[2018-07-20 06:52] VITALS: BP 155/96; PULSE 72
[2018-07-20] MEDS: LISINOPRIL 20 MG TABLET 40 MG PO (06:52)
[2018-07-20 06:55] VITALS: BP 155/96
[2018-07-20 07:43] VITALS: BP 155/96; PULSE 70; RESP 18; TEMP 36.6; O2SAT 95
[2018-07-20] MEDS: ASPIRIN EC 81 MG TABLET PO (08:37)
[2018-07-20] MEDS: TAMSULOSIN 0.4 MG CAPSULE 0.8 MG PO (08:37)
--- NOTE | 2018-07-20 13:10 | P.DS_ITS ---
History of Present Illness Chief complaint: Stroke Narrative: CVA Patient admitted this morning from the ER to ICU. History is from patient and from as well as from emergency room physician. Patient recalls going to bed last night feeling normal. Approximately 4:00 a.m. this morning he awakened to go urinate. This is not unusual for him. He has no recollection of the ensuing events. He is unaware of any dizziness prodrome c hest pain headaches. His relates that she heard some racquet went into the bathroom and he was on the floor laying on his back no actual seizure activity but seemed to be just reached like he was trying to get up. His eyes were open and he apparently said nothing however. He was breathing on his own and eyes are open. Paramedics were called. Apparently got pretty agitated there and gave him 1 or 2 shots of Versed on the way to the hospital. He has no recollection of the event or the ensuing minutes. His relates that he 1st woke at approximately 7:30 a.m.. The patient was evaluated in the ER contact with neurologic consult at [facility] felt he did not have any surgical intervention appropriate. Studies done here were all normal. Recommendation was to the admit for observation and if the mental status had not improved over the next several hours that might reconsider transfer. The concern being a whether not this was indeed a TIA versus medication effects versus seizure. Patient has no history of seizure disorder or TIA. He has a history of hyperlipidemia. And hypertension. Discharge Providers Date of admission: 07/19/18 07:36 Discharge Date: 07/20/18 Primary care physician: Mikey Rodriguez MD Consults: 07/19/18 07:07 Consult to Physician Routine Comment: Consulting Provider: Mikey Rodriguez Reason for consultation: admission Has provider been notified: Yes 07/19/18 08:47 Consult to Physical Therapy Evaluate & Treat Comment: ?cva? Physician Instructions: Evaluate and Treat Discharge provider: Mikey Rodriguez MD Summary Discharge Diagnosis: 1. Transient neurologic deficit. Unclear whether not we would call this in transit ischemic attack. Etiology his yet to be determined. Possibilities include arrhythmia versus seizure. Workup was totally normal. 2. Unchanged echocardiogram. 3. Normal all MRI MRA echocardiogram as stated. 4. Pre-existing hypertension which may well have been the contributing factor his dose was increased from 40 mg once a day to 40 mg twice a day of the lisinopril. Additionally was advised to switch from 81 mg of aspirin to 325 mg aspirin daily Hospital Course: Patient was admitted for evaluation of neurologic event. Initially was somewhat somnolent felt to be secondary to the medication given in the field. Over the next several hours his mental status improved normal and by noon on the day of admission his mental status is back to normal alert and oriented x3. The rest of the time spent I he was asymptomatic. Telemetry showed normal sinus rhythm. Vital signs remained stable except her blood pressure was elevated and we increased the dose of his lisinopril as stated above Exam Vital Signs (past 8 hours): - 07/20/18 06:52 07/20/18 06:55 07/20/18 07:43 Temperature 98 F Pulse Rate 72 70 Respiratory Rate 18 Blood Pressure 155/96 H 155/96 H 155/96 H Pulse Oximetry 95 Oxygen Delivery Method Room Air Oxygen Flow Rate 0 Narrative Exam Narrative: Gen.: Neurologic exam cranial nerves 2-12 intact finger-nose normal hurt and oriented x3 Skin: Warm well perfused. No prominent lesions. Nonicteric. HEENT: PERRL., normal EOM, external ears canals TMs normal, nasal mucosa normal and midline septum, oropharynx without lesions. Neck: Trachea midline. Thyroid nontender and not enlarged. Carotids without bruits. No lymphadenopathy Back: No obvious deformity or tenderness. Chest: Clear to P&A. Symmetric. CV: RRR no murmur or gallop. No JVD. Abdomen: No masses bruits tenderness or visceromegaly. Neuro: Cranial nerves II through XII grossly intact. Sensory and motor exams intact. Gait normal. Mental status: Intact for screening Extremities: No cyanosis clubbing or edema Musculoskeletal: No gross deformities Lymphatics: Negative for lymphadenopathy, supraclavicular axillary or inguinal Objective Labs Result Diagrams: 07/19/18 05:25 07/19/18 05:25 Labs: As stated of echocardiogram normal. Unchanged from last year. MRI MRA of the head showed the nose to a stroke and no vascular insufficiency carotid arteries appeared adequate there was a slight asymmetry of the vertebral arteries but no consequence Discharge Plan Discharge Plan Patient Disposition: Home Discharge Med Rec/Prescriptions Prescriptions: New lisinopril 20 mg Tablet 40 mg PO 0600,1800 Qty: 100 RF: 0 tamsulosin [Flomax] 0.4 mg Capsule 0.8 mg PO DAILY Qty: 100 RF: 0 simvastatin 20 mg Tablet 20 mg PO BEDTIME Qty: 100 RF: 0 Continued MULTIVITAMIN (#MULTIPLE VITAMINS) 1 cap PO Q DAY Qty: 0 RF: 0 ASPIRIN (Aspirin) 81 mg PO Q DAY Qty: 0 RF: 0 psyllium husk [Metamucil] 0.52 GM capsule 0.52 gm PO Q DAY Qty: 0 RF: 0 tadalafil [Cialis] 5 mg tablet 5 mg PO Q DAY Qty: 90 RF: 3 tamsulosin [Flomax] 0.4 mg capsule 0.8 mg PO QDAY Qty: 180 RF: 3 simvastatin 20 mg tablet 20 mg PO HS Qty: 90 RF: 3 testosterone [Testim] 50 mg/5 gram (1 %) gel See Rx Instructions Topical Q DAY Qty: 180 RF: 1 omeprazole 20 mg tablet,delayed release (DR/EC) 20 mg PO Q DAY Qty: 90 RF: 0 trazodone 50 mg tablet See Rx Instructions PO BEDTIME Qty: 180 RF: 3 Discontinued lisinopril 20 mg tablet 20 mg PO BID Qty: 180 RF: 0 Follow up/Referrals: Mikey Rodriguez MD [Primary Care Provider] - (Dr. Rodriguez's office will call you with follow-up appointment date and time. ) Visit Report/Discharge Packet Instructions: Essential Hypertension, DI for Stroke-Ischemic, Lisinopril Discharge Data Primary Care Provider: Mikey Rodriguez Attending Provider: Mikey Rodriguez Admit Date/Time: 07/19/18 07:36 Discharges patient from system. Discharge Date/Time: 07/20/18 09:00
--- NOTE | 2018-07-20 15:44 | CM.DANOTE ---
Discharge Planning/Care Management DCP: assessment: case received this morning and discussed in Team Rounds 0930 A d/c order for home had been written by Dr. Rodriguez. Pt is a 78 year old male who admitted to care of PCP: Dr. Rodriguez Payer: Medicare and [employer]. Admission status: OBS: confirmed by UR JUAN RAMON Hopkins. Had planned to check in with pt after rounds to confirm the d/c plan. RN Coordinator Lorena reported in Rounds that pt had already left for home with his spouse. He had a followup appt with Dr. Rodriguez in clinic. CM Discharge Assessment Start: 07/20/18 15:43 Freq: Status: Active Protocol: Document 07/20/18 15:43 ITV (Rec: 07/20/18 15:44 [id number]) Discharge Planning Assessment Advance Directives? Yes History Provided By Significant Other Prior Living Arrangements House Household Members spouse family Review Status In Process Next Review Type Continued Stay Review
== END 2018-07-20 09:00 | disposition home or self-care (01) ==
LOC: ED 07:17 → AC 07:52 → ICU 07-20 08:21 → AC 07-20 12:30 → ICU 07-20 12:30
PROVIDERS: Admitting Provider Family Medicine; Emergency Provider Emergency Medicine; Family Provider Family Medicine; PCP Family Medicine; Visit Provider Family Medicine
DX: R29.818 Other symptoms and signs involving the nervous system (principal); I10 Essential (primary) hypertension; E78.5 Hyperlipidemia, unspecified; R00.0 Tachycardia, unspecified; W19.XXXA Unspecified fall, initial encounter
CPT/HCPCS: 36415; 36591; 70450; 70496; 70498; 70548; 70553; 72125; 80053; 80320; 81001; 82140; 82550; 83690; 84146; 84484; 85025; 85610; 85730; 87797; 93005; 93010; 93306; 96360; 96361; 97161; 97530; 99217; 99220; 99223; 99238; 99285; 99291; 99292; G0378; Q9967

== ENCOUNTER → 2018-09-22 10:57 | Outpatient (CLI) | payer MEDICARE, OTHER, SELFPAY ==
[2018-07-19 07:57] VITALS: BMI 29.5
--- NOTE | 2018-09-22 12:22 | PM.TREADMILL ---
Cardiac Stress Test Report Referral & Results Date Patient Seen: 09/22/18 Requesting provider: Joe Gastelum Indication: Syncope, atrial fibrillation Rest ECG: Unremarkable Procedure Note: Today following both written and verbal informed consent the patient was exercised according to a standard Devin protocol patient went for a total of 10 minutes 56 seconds achieving a maximum heart rate of 121 maximum systolic blood pressure of 170. This is approximately 12.8 METS. Exercise was terminated at this point because of targets were met. Patient was also given Cardiolite through a previously started Hep-Lock IV by the diagnostic imaging staff approximately 1 minute prior to the cessation of exercise. There are no ST-T segment changes Somewhat slow increase in heart rate but normal blood pressure response Functional aerobic impairment way way way off the scale I estimate his exercise capacity to be equal that of an active 48-year-old, and the patient could have continued on probably into the next stage Rare PAC also identified Impression: No evidence of ischemia Amazing exercise capacity Please see perfusion imaging report as well Please note: Actual ECG tracings can be found in the PACS system.
--- NOTE | 2018-09-27 15:49 | DI.NM.S_ITS ---
DATE OF SERVICE: STUDY TYPE: Two-day treadmill nuclear stress test. RADIOISOTOPES: 25.1 mCi used as a rest dose and 21.3 mCi used as a stress dose. CLINICAL REASON FOR STUDY: Syncope. CLINICAL DURING STRESS TEST: The patient exercised for 10 minutes and 56 seconds, which is outstanding exercise capacity, with 12.8 METs. Target heartrate was achieved. Appropriate blood pressure response to exercise. ECG: Resting ECG shows sinus rhythm with nonspecific ST-T changes. With exercise, there were no ischemic changes. No ectopy. PERFUSION IMAGES: No perfusion evidence of ischemia or infarction on stress supine, stress prone, and resting supine images. GATED IMAGES: Normal left ventricular size, wall motion, and systolic function (post-stress EF 66%). TID ratio is normal at 0.88. Wqwv-oo-hrivb ratio is 0.27, normal. CONCLUSIONS: Low-risk, normal treadmill nuclear perfusion stress test study. 1. No perfusion evidence of ischemia or infarction. 2. Normal left ventricular size, wall motion, and systolic function (post- stress EF 66%). 3. No angina during the study. 4. No ECG evidence of ischemia. 5. Outstanding exercise tolerance with 12.8 METs. LADI could not be calculated as it was offscale. Target heartrate achieved. Appropriate blood pressure response to exercise. 6. No prior nuclear stress test available for comparison. Fareed Wright - BULL/keily/ts doc#: [id number]/job#: [id number] dd: 09/24/2018 17:19:00 dt: 09/25/2018 08:01:00 DICTATING /COPIES TO: Joe Gastelum MD COPIES MNE: SHYLA
== END ==
PROVIDERS: PCP Family Medicine; Visit Provider Internal Medicine Cardiovascular Disease
DX: R55 Syncope and collapse (principal); I48.91 Unspecified atrial fibrillation
CPT/HCPCS: 78452; 93016; 93017; 93018; A9502

== ENCOUNTER → 2019-01-19 08:15 | Outpatient (CLI) | payer MEDICARE, OTHER, SELFPAY ==
[2018-07-19 07:57] VITALS: BMI 29.5
[2019-01-19 09:34] LABS: Alanine Aminotransferase 24 IU/L (<50); Albumin 4.6 g/dL (3.5-5.0); Albumin Globulin Ratio 1.8 (1.0-2.8); Alkaline Phosphatase 74 U/L (38-126); Aspartate Aminotransferase 35 IU/L (17-59); BUN Creatinine Ratio 25.6 (6-22); Bilirubin Total 0.7 mg/dL (0.2-1.3); Blood Urea Nitrogen 23 mg/dL (9-20); Calcium 9.8 mg/dL (8.4-10.2); Carbon Dioxide 29 mmol/L (22-32); Chloride 102 mmol/L (98-107); Cholesterol 180 mg/dL (140-199); Estimated Glomerular Filt Rate > 60.0 mL/min (>60); Globulin 2.5 g/dL (1.7-4.1); Glucose 103 mg/dL (80-110); HDL Cholesterol 58 mg/dL (40-60); HEMOLYSIS < 15 (0-50); LDL Cholesterol Calculated 109 mg/dL (<100); Potassium 4.9 mmol/L (3.4-5.1); Sodium 141 mmol/L (137-145); Total Protein 7.1 g/dL (6.3-8.2); Triglycerides 67 mg/dL (35-150)
[2019-01-19 09:46] LABS: Add Manual Diff / Slide Review NO; Basophils Absolute Auto 0 /uL (0-100); Basophils Percent Auto 0.5 % (0-2); Eosinophils Absolute Auto 300 /uL (0-450); Eosinophils Percent Auto 5.1 % (2-4); Hematocrit 51.8 % (41-53); Hemoglobin 17.7 g/dL (13.5-17.5); Lymphocytes Absolute Auto 1500 /uL (1100-4500); Lymphocytes Percent Auto 23.8 % (25-40); Mean Corpuscular HGB Conc 34.1 % (30-36); Mean Corpuscular Hemoglobin 32.6 PG (26-34); Mean Corpuscular Volume 95.7 fL (80-100); Monocytes Absolute Auto 800 /uL (0-900); Neutrophils Absolute Auto 3500 /uL (1500-7000); Neutrophils Percent Auto 57.6 % (50-75); Platelet Count 117 X10^3/uL (150-400); Red Blood Cell Count 5.42 X10^6/uL (4.5-5.9); Red Cell Distribution Width 13.6 % (11.6-14.8); White Blood Cell Count 6.1 X10^3/uL (4.5-11.0)
[2019-01-19 10:00] LABS: Prostate Specific Antigen Scrn 1.28 ng/mL (0.1-4.0)
[2019-01-19 10:20] LABS: Thyroid Stimulating Hormone 3.82 uIU/mL (0.47-4.68)
== END ==
PROVIDERS: PCP Family Medicine; Visit Provider Family Medicine
DX: R60.9 Edema, unspecified (principal)
CPT/HCPCS: 36415; 80053; 80061; 84443; 85025; G0103

== ENCOUNTER → 2019-12-24 14:51 | Outpatient (CLI) | payer MEDICARE, OTHER, SELFPAY ==
[2018-07-19 07:57] VITALS: BMI 29.5
[2019-12-26 05:56] LABS: COVID19 Sendout Not Detected (Not Detect)
== END ==
PROVIDERS: PCP Family Medicine; Visit Provider Physician Assistant
DX: Z01.812 Encounter for preprocedural laboratory examination (principal)
CPT/HCPCS: 87635

== ENCOUNTER 2019-12-27 07:20 | Day surgery (SDC) | payer MEDICARE, OTHER, SELFPAY ==
[2018-07-19 07:57] VITALS: BMI 29.5
[2019-12-27] MEDS: PROPARACAINE 0.5% OPHTH SOL 2 DROPS EYE-OP (08:08)
[2019-12-27] MEDS: CATARACT EYE COMPOUND (10 DROPS/SYRINGE) 3 DROPS EYE-OP (08:15)
[2019-12-27 08:18] VITALS: BP 143/79; PULSE 71; RESP 16; TEMP 36.4; O2SAT 97; BMI 26.9
--- NOTE | 2019-12-27 09:51 | PM.PREOP ---
Pre-operative Note Interval Note History & Physical reviewed/Exam performed by Physician: Yes Changes to H&P: No
--- NOTE | 2019-12-27 09:51 | PM.OP.1 ---
Operative Date/Time/Diagnoses Pre-op diagnosis: Nuclear cataract right eye Procedure & Clinicians Procedure: Cataract Surgery Same procedure as scheduled: Yes Surgeon: Gianfranco Oneill Anesthesia Type: MAC +/- and Sedation Operative Notes Procedure in detail: Patient brought to the operating suite. Tetracaine drops placed in the right eye. Patient was prepped and draped in sterile manner. Wire lid speculum was placed in the eye. Betadine drops were placed on the eye. This was irrigated. Lidocaine jelly was placed on the eye. A paracentesis port was created with a side-port blade. 0.1 mL 1% preservative free lidocaine was injected into the anterior chamber. The anterior chamber was deepened with viscoelastic. 2.6 mm keratome was used to create a temporal clear corneal incision. Cystotome and Utrata forceps were used to create continuous tear capsulorrhexis. Balanced salt solution was used to hydro dissect the nucleus. The phacoemulsification handpiece was inserted and the nucleus was removed using the stop and chop technique. The irrigation aspiration handpiece was inserted and the remaining cortex was removed. Anterior chamber was deepened with viscoelastic. An Levy ZCB00 intraocular lens with a power of 20.5 was injected into the capsular bag. Irrigation aspiration handpiece was inserted and the remaining viscoelastic was removed. Incision was hydrated with balanced salt solution and found to be leak free with pressure with Weck-Cheri sponges. 0.1 mL Vigamox injected anterior chamber. 0.3 mL Kenalog 10 mg was injected subconjunctivally. Lid speculum was removed. The patient left the operating room in excellent condition. Complications: none Post-operative Condition: stable Disposition: same day surgery
[2019-12-27] MEDS: PHENYLEPHRINE/LIDOCAINE VIAL (OR) 0.2 ML EYE-OP (10:23)
[2019-12-27] MEDS: TRIAMCINOLONE 50 MG/5 ML VIAL INJ (10:23)
[2019-12-27] MEDS: MOXIFLOXACIN INJ 5 MG/ML VIAL EYE-OP (10:23)
[2019-12-27] MEDS: LIDOCAINE JELLY 2% 5 ML 1 APPLIC TOP (10:24)
[2019-12-27] MEDS: CHONDROIDTIN/SOD HYALURONATE 1.05 ML SYRINGE INTRAOCULA (10:24)
[2019-12-27] MEDS: TETRACAINE 0.5% OPHTH DROPS 4 ML 2 DROPS EYE-OP (10:24)
[2019-12-27] MEDS: BALANCED SALT IRRIG SOLN NO.2 500 ML, EPINEPHrine 1 MG IRR (10:24)
[2019-12-27 10:34] VITALS: BP 130/76; PULSE 69; TEMP 36.3; O2SAT 98
== END 2019-12-27 10:50 | disposition home or self-care (01) ==
PROVIDERS: PCP Family Medicine; Referring Provider Family Medicine; Visit Provider Ophthalmology
PROC: (CPT 66984; principal; 2019-12-27 09:15)
DX: H25.11 Age-related nuclear cataract, right eye (principal); I10 Essential (primary) hypertension; E78.00 Pure hypercholesterolemia, unspecified
CPT/HCPCS: 66984; J0171; J2250; J3301

== ENCOUNTER → 2020-01-07 13:47 | Outpatient (CLI) | payer MEDICARE, OTHER, SELFPAY ==
[2018-07-19 07:57] VITALS: BMI 29.5
[2020-01-09 02:23] LABS: COVID19 Sendout Not Detected (Not Detect)
== END ==
PROVIDERS: PCP Family Medicine; Visit Provider Nurse Practitioner
DX: Z11.59 Encounter for screening for other viral diseases (principal)
CPT/HCPCS: 87635

== ENCOUNTER 2020-01-10 06:59 | Day surgery (SDC) | payer MEDICARE, OTHER, SELFPAY ==
[2018-07-19 07:57] VITALS: BMI 29.5
[2020-01-10] MEDS: PROPARACAINE 0.5% OPHTH SOL 2 DROPS EYE-OP (07:57)
[2020-01-10 07:58] VITALS: BP 149/82; PULSE 102; RESP 20; TEMP 37.4; O2SAT 99; BMI 27.8
[2020-01-10] MEDS: CATARACT EYE COMPOUND (10 DROPS/SYRINGE) 3 DROPS EYE-OP (08:04)
[2020-01-10 08:35] VITALS: TEMP 37.6
[2020-01-10 08:45] VITALS: TEMP 38
--- NOTE | 2020-01-10 08:55 | SUR.PREOP ---
Dr. Oneill and Dr. Johnson made aware of elevated temp.
--- NOTE | 2020-01-10 09:02 | P.OP_ITS ---
Operative Date/Time/Diagnoses Pre-op diagnosis: Nuclear Cataract Left eye Post-op diagnosis: same Procedure & Clinicians Same procedure as scheduled: Yes Surgeon: Gianfranco Oneill Anesthesia Type: MAC +/- and Sedation Operative Notes Procedure in detail: Patient brought to the operating suite. Tetracaine drops placed in the left eye. Patient was prepped and draped in sterile manner. Wire lid speculum was placed in the eye. Betadine drops were placed on the eye. This was irrigated. Lidocaine jelly was placed on the eye. A paracentesis port was created with a side-port blade. 0.1 mL 1% preservative free lidocaine was injected into the anterior chamber. The anterior chamber was deepened with viscoelastic. 2.6 mm keratome was used to create a temporal clear corneal incision. Cystotome and Utrata forceps were used to create continuous tear capsulorrhexis. Balanced salt solution was used to hydro dissect the nucleus. The phacoemulsification handpiece was inserted and the nucleus was removed using the stop and chop technique. The irrigation aspiration handpiece was inserted and the remaining cortex was removed. Anterior chamber was deepened with viscoe lastic. An Levy ZCB00 intraocular lens with a power of 20.5 was injected into the capsular bag. Irrigation aspiration handpiece was inserted and the remaining viscoelastic was removed. Incision was hydrated with balanced salt solution and found to be leak free with pressure with Weck-Cheri sponges. 0.1 mL Vigamox injected anterior chamber. 0.3 mL Kenalog 10 mg was injected subconjunctivally. Lid speculum was removed. The patient left the operating room in excellent condition. Complications: none Post-operative Condition: stable Disposition: same day surgery
--- NOTE | 2020-01-10 09:02 | PM.PREOP ---
Pre-operative Note Interval Note History & Physical reviewed/Exam performed by Physician: Yes Changes to H&P: No
--- NOTE | 2020-01-10 09:05 | SUR.OPER ---
Supine on eye stretcher, head on extension cradle secured with tape. Arms tucked at sides with blanket. Pillow under knees.
[2020-01-10] MEDS: PHENYLEPHRINE/LIDOCAINE VIAL (OR) 0.2 ML EYE-OP (09:14)
[2020-01-10] MEDS: TRIAMCINOLONE 50 MG/5 ML VIAL INJ (09:15)
[2020-01-10] MEDS: MOXIFLOXACIN INJ 5 MG/ML VIAL EYE-OP (09:15)
[2020-01-10] MEDS: CHONDROIDTIN/SOD HYALURONATE 1.05 ML SYRINGE INTRAOCULA (09:16)
[2020-01-10] MEDS: TETRACAINE 0.5% OPHTH DROPS 4 ML 2 DROPS EYE-OP (09:17)
[2020-01-10] MEDS: LIDOCAINE JELLY 2% 5 ML 1 APPLIC TOP (09:17)
[2020-01-10] MEDS: BALANCED SALT IRRIG SOLN NO.2 500 ML, EPINEPHrine 1 MG IRR (09:17)
[2020-01-10 09:33] VITALS: BP 122/70; PULSE 104; RESP 16; TEMP 37.7; O2SAT 95
== END 2020-01-10 09:41 | disposition home or self-care (01) ==
PROVIDERS: PCP Family Medicine; Referring Provider Ophthalmology; Visit Provider Ophthalmology
PROC: (CPT 66984; principal; 2020-01-10 09:15)
DX: H25.12 Age-related nuclear cataract, left eye (principal); I10 Essential (primary) hypertension
CPT/HCPCS: 66984; J0171; J2250; J3301

== ENCOUNTER → 2020-02-08 07:27 | Outpatient (CLI) | payer MEDICARE, OTHER, SELFPAY ==
[2018-07-19 07:57] VITALS: BMI 29.5
[2020-02-08 08:21] LABS: Add Manual Diff / Slide Review NO; Basophils Absolute Auto 0 /uL (0-100); Basophils Percent Auto 0.5 % (0-2); Eosinophils Absolute Auto 400 /uL (0-450); Eosinophils Percent Auto 6.6 % (2-4); Hematocrit 52.1 % (41-53); Hemoglobin 17.3 g/dL (13.5-17.5); Lymphocytes Absolute Auto 1600 /uL (1100-4500); Lymphocytes Percent Auto 29.6 % (25-40); Mean Corpuscular HGB Conc 33.2 % (30-36); Mean Corpuscular Hemoglobin 32.1 PG (26-34); Mean Corpuscular Volume 96.8 fL (80-100); Monocytes Absolute Auto 700 /uL (0-900); Monocytes Percent Auto 13.1 % (3-14); Neutrophils Absolute Auto 2700 /uL (1500-7000); Neutrophils Percent Auto 50.2 % (50-75); Platelet Count 113 X10^3/uL (150-400); Red Blood Cell Count 5.39 X10^6/uL (4.5-5.9); Red Cell Distribution Width 13.7 % (11.6-14.8); White Blood Cell Count 5.4 X10^3/uL (4.5-11.0)
[2020-02-08 09:01] LABS: Alanine Aminotransferase 24 IU/L (<50); Albumin 4.3 g/dL (3.5-5.0); Albumin Globulin Ratio 1.6 (1.0-2.8); Alkaline Phosphatase 60 U/L (38-126); Aspartate Aminotransferase 34 IU/L (17-59); BUN Creatinine Ratio 30.5 (6-22); Bilirubin Total 0.5 mg/dL (0.2-1.3); Blood Urea Nitrogen 29 mg/dL (9-20); Calcium 9.6 mg/dL (8.4-10.2); Carbon Dioxide 32 mmol/L (22-32); Chloride 102 mmol/L (98-107); Cholesterol 189 mg/dL (140-199); Estimated Glomerular Filt Rate > 60.0 mL/min (>60); Globulin 2.7 g/dL (1.7-4.1); Glucose 101 mg/dL (80-110); HDL Cholesterol 53 mg/dL (40-60); HEMOLYSIS < 15 (0-50); LDL Cholesterol Calculated 115 mg/dL (<100); Sodium 138 mmol/L (137-145); Triglycerides 103 mg/dL (35-150)
[2020-02-08 09:29] LABS: Prostate Specific Antigen Scrn 1.52 ng/mL (0.1-4.0)
== END ==
PROVIDERS: PCP Family Medicine; Referring Provider Family Medicine; Visit Provider Family Medicine
DX: E78.2 Mixed hyperlipidemia (principal); N40.1 Benign prostatic hyperplasia with lower urinary tract symptoms; I10 Essential (primary) hypertension; N13.8 Other obstructive and reflux uropathy
CPT/HCPCS: 36415; 80053; 80061; 84153; 85025; G0103

== ENCOUNTER → 2020-04-09 14:56 | Outpatient (CLI) | payer MEDICARE, OTHER, SELFPAY ==
[2018-07-19 07:57] VITALS: BMI 29.5
--- NOTE | 2020-04-09 | DI.RAD.S_ITS ---
PROCEDURE: XR LUMBAR SPINE 2-3V INDICATIONS: LOW BACK PAIN TECHNIQUE: 3 views of the lumbar spine were acquired. COMPARISON: None. FINDINGS: Bones: 5 zbp-dwc-tlhozic vertebrae are present. There is normal bony alignment. No vertebral body compression fractures. No suspicious bony lesions. Convex leftward scoliosis is mild at the L2-L3 level. Degenerative disc height reduction is essentially severe at L2-L3, L4-L5, and L5-S1. Facet osteoarthritis becomes progressively more prominent from L3 inferiorly and is severe at L4-5 and L5-S1. Slight anterolisthesis of L5 on S1 is present, and the combination of degenerative changes likely produces multilevel spinal and foraminal stenosis that is moderate to moderately severe from L2 inferiorly. Soft tissues: Overlying bowel gas pattern is normal. No suspicious soft tissue calcifications. IMPRESSION: Extensive degenerative changes as discussed with likelihood of multilevel significant spinal and foraminal stenosis. Follow-up by MR scanning likely is warranted. Dictated by: Brett Archuleta M.D. on 04/09/2020 at 16:29 Approved by: Brett Archuleta M.D. on 04/09/2020 at 16:31
== END ==
PROVIDERS: PCP Family Medicine; Referring Provider Chiropractor; Visit Provider Chiropractor
DX: M54.5 Low back pain (principal); M47.816 Spondylosis without myelopathy or radiculopathy, lumbar region; M47.817 Spondylosis without myelopathy or radiculopathy, lumbosacral region
CPT/HCPCS: 72100

== ENCOUNTER → 2020-05-09 11:42 | Outpatient (CLI) | payer MEDICARE, OTHER, SELFPAY ==
[2018-07-19 07:57] VITALS: BMI 29.5
--- NOTE | 2020-05-09 11:44 | DI.RAD.S_ITS ---
PROCEDURE: XR CHEST 2V INDICATIONS: night sweats TECHNIQUE: 2 views of the chest were acquired. COMPARISON: [facility], CHEST 2 VIEW, 10/30/2015, 8:42. [facility], , CHEST 2 VIEW, 05/23/2013, 7:20. FINDINGS: Surgical changes and devices: None. Lungs and pleura: Lungs are mildly abnormal, with across mild interstitial prominence. No pleural effusions or pneumothorax. Mediastinum: Mediastinal contours are normal. Heart size is normal. Bones and chest wall: No suspicious bony abnormalities. Soft tissues appear unremarkable. IMPRESSION: Chronic mild interstitial prominence, no pneumonia seen. Suspect prior smoking history. Dictated by: Brett Archuleta M.D. on 05/09/2020 at 12:41 Approved by: Brett Archuleta M.D. on 05/09/2020 at 12:41
[2020-05-09 11:50] LABS: Bacteria Urine None Seen; RBC Urine None Seen (0-5/HPF); WBC Urine None Seen (0-5/HPF)
[2020-05-09 12:38] LABS: Add Manual Diff / Slide Review NO; Appearance Urine UA CLEAR; Basophils Absolute Auto 0 /uL (0-100); Basophils Percent Auto 0.4 % (0-2); Bilirubin Urine UA NEGATIVE (NEGATIVE); Color Urine UA YELLOW; Eosinophils Absolute Auto 400 /uL (0-450); Eosinophils Percent Auto 5.8 % (2-4); Glucose Urine UA NEGATIVE (Negative); Hematocrit 49.3 % (41-53); Hemoglobin 16.8 g/dL (13.5-17.5); Ketones Urine UA NEGATIVE (NEGATIVE); Leukocyte Esterase Urine UA NEGATIVE (NEGATIVE); Lymphocytes Absolute Auto 1300 /uL (1100-4500); Lymphocytes Percent Auto 20.4 % (25-40); Mean Corpuscular HGB Conc 34.1 % (30-36); Mean Corpuscular Hemoglobin 32.7 PG (26-34); Mean Corpuscular Volume 95.9 fL (80-100); Monocytes Absolute Auto 600 /uL (0-900); Monocytes Percent Auto 9.3 % (3-14); Neutrophils Absolute Auto 4200 /uL (1500-7000); Neutrophils Percent Auto 64.1 % (50-75); Nitrite Urine UA NEGATIVE (Negative); Occult Blood Urine UA NEGATIVE (Negative); Platelet Count 136 X10^3/uL (150-400); Protein Urine UA NEGATIVE (Negative); Red Blood Cell Count 5.14 X10^6/uL (4.5-5.9); Red Cell Distribution Width 12.8 % (11.6-14.8); Specific Gravity Urine UA 1.015 (1.000-1.035); Urobilinogen Urine UA 0.2 E.U./dL (0.2); White Blood Cell Count 6.6 X10^3/uL (4.5-11.0)
[2020-05-09 12:46] LABS: Culture Indicated Urine Cult Not Indicated; Urine Comments Microscopic Normal
[2020-05-09 12:50] LABS: Alanine Aminotransferase 26 IU/L (<50); Albumin 4.6 g/dL (3.5-5.0); Albumin Globulin Ratio 1.5 (1.0-2.8); Alkaline Phosphatase 70 U/L (38-126); Aspartate Aminotransferase 37 IU/L (17-59); BUN Creatinine Ratio 28.1 (6-22); Bilirubin Total 0.5 mg/dL (0.2-1.3); Blood Urea Nitrogen 25 mg/dL (9-20); Calcium 9.5 mg/dL (8.4-10.2); Carbon Dioxide 29 mmol/L (22-32); Chloride 99 mmol/L (98-107); Estimated Glomerular Filt Rate > 60.0 mL/min (>60); Glucose 103 mg/dL (80-110); HEMOLYSIS < 15 (0-50); Lactate Dehydrogenase 418 U/L (313-618); Potassium 4.5 mmol/L (3.4-5.1); Sodium 134 mmol/L (137-145); Total Protein 7.6 g/dL (6.3-8.2)
[2020-05-09 13:20] LABS: Erythrocyte Sedimentation Rate 1 MM/HR (0-15)
[2020-05-10 16:14] LABS: HIV 1 & 2 Ab/Ag 4th Gen Combo NEGATIVE (NEGATIVE)
== END ==
PROVIDERS: PCP Family Medicine; Referring Provider Family Medicine; Visit Provider Family Medicine
DX: D69.6 Thrombocytopenia, unspecified (principal); I10 Essential (primary) hypertension; R50.9 Fever, unspecified; R61 Generalized hyperhidrosis; E78.2 Mixed hyperlipidemia
CPT/HCPCS: 36415; 71046; 80053; 81001; 83615; 85025; 85651; 87389

== ENCOUNTER → 2020-05-16 12:42 | Outpatient (CLI) | payer MEDICARE, OTHER, SELFPAY ==
[2018-07-19 07:57] VITALS: BMI 29.5
[2020-05-16] MEDS: COVID-19 VACC, Ad26(JANSSEN)/PF 0.5 ML IM (13:06)
== END ==
PROVIDERS: PCP Family Medicine; Visit Provider Internal Medicine
DX: Z23 Encounter for immunization (principal)
CPT/HCPCS: 0031A; 91303

== ENCOUNTER → 2020-08-24 10:16 | Outpatient (CLI) | payer MEDICARE, OTHER, SELFPAY ==
[2018-07-19 07:57] VITALS: BMI 29.5
[2020-08-24 11:12] LABS: Add Manual Diff / Slide Review NO; Basophils Absolute Auto 0 /uL (0-100); Basophils Percent Auto 0.1 % (0-2); Eosinophils Absolute Auto 0 /uL (0-450); Eosinophils Percent Auto 0.2 % (2-4); Hematocrit 46.4 % (41-53); Hemoglobin 15.5 g/dL (13.5-17.5); Lymphocytes Absolute Auto 600 /uL (1100-4500); Mean Corpuscular HGB Conc 33.4 % (30-36); Mean Corpuscular Volume 95.9 fL (80-100); Monocytes Absolute Auto 1300 /uL (0-900); Monocytes Percent Auto 8.5 % (3-14); Neutrophils Absolute Auto 13800 /uL (1500-7000); Neutrophils Percent Auto 87.2 % (50-75); Platelet Count 137 X10^3/uL (150-400); Red Blood Cell Count 4.84 X10^6/uL (4.5-5.9); Red Cell Distribution Width 12.5 % (11.6-14.8); White Blood Cell Count 15.8 X10^3/uL (4.5-11.0)
[2020-08-24 11:46] LABS: Alanine Aminotransferase 31 IU/L (<50); Albumin 3.9 g/dL (3.5-5.0); Albumin Globulin Ratio 1.3 (1.0-2.8); Alkaline Phosphatase 55 U/L (38-126); Aspartate Aminotransferase 40 IU/L (17-59); Bilirubin Total 0.9 mg/dL (0.2-1.3); Blood Urea Nitrogen 28 mg/dL (9-20); Calcium 9.5 mg/dL (8.4-10.2); Carbon Dioxide 23 mmol/L (22-32); Chloride 99 mmol/L (98-107); Estimated Glomerular Filt Rate > 60.0 mL/min (>60); Globulin 2.9 g/dL (1.7-4.1); Glucose 191 mg/dL (80-110); HEMOLYSIS < 15 (0-50); Lactate Dehydrogenase 365 U/L (313-618); Potassium 4.4 mmol/L (3.4-5.1); Sodium 131 mmol/L (137-145); Total Protein 6.8 g/dL (6.3-8.2)
[2020-08-27 16:49] LABS: ANA Screen, IFA Negative (.)
== END ==
PROVIDERS: PCP Family Medicine; Referring Provider Family Medicine; Visit Provider Family Medicine
DX: D69.6 Thrombocytopenia, unspecified (principal); R50.9 Fever, unspecified; R61 Generalized hyperhidrosis
CPT/HCPCS: 36415; 80053; 83615; 85025; 86038; 87040

== ENCOUNTER → 2021-02-08 06:42 | Outpatient (CLI) | payer MEDICARE, OTHER, SELFPAY ==
[2018-07-19 07:57] VITALS: BMI 29.5
[2021-02-08 08:03] LABS: Add Manual Diff / Slide Review NO; Basophils Absolute Auto 0 /uL (0-100); Basophils Percent Auto 0.4 % (0-2); Eosinophils Absolute Auto 300 /uL (0-450); Hematocrit 46.8 % (41-53); Hemoglobin 15.9 g/dL (13.5-17.5); Lymphocytes Absolute Auto 1500 /uL (1100-4500); Lymphocytes Percent Auto 29.8 % (25-40); Mean Corpuscular HGB Conc 33.9 % (30-36); Mean Corpuscular Hemoglobin 32.6 PG (26-34); Mean Corpuscular Volume 96.3 fL (80-100); Monocytes Absolute Auto 800 /uL (0-900); Monocytes Percent Auto 15.5 % (3-14); Neutrophils Absolute Auto 2500 /uL (1500-7000); Neutrophils Percent Auto 48.3 % (50-75); Platelet Count 150 X10^3/uL (150-400); Red Blood Cell Count 4.86 X10^6/uL (4.5-5.9); Red Cell Distribution Width 12.4 % (11.6-14.8); White Blood Cell Count 5.2 X10^3/uL (4.5-11.0)
[2021-02-08 08:27] LABS: Alanine Aminotransferase 41 IU/L (<50); Albumin 4.4 g/dL (3.5-5.0); Albumin Globulin Ratio 1.6 (1.0-2.8); Alkaline Phosphatase 67 U/L (38-126); Aspartate Aminotransferase 48 IU/L (17-59); BUN Creatinine Ratio 21.2 (6-22); Bilirubin Total 0.6 mg/dL (0.2-1.3); Blood Urea Nitrogen 21 mg/dL (9-20); Calcium 10.1 mg/dL (8.4-10.2); Carbon Dioxide 32 mmol/L (22-32); Chloride 100 mmol/L (98-107); Cholesterol 183 mg/dL (140-199); Estimated Glomerular Filt Rate > 60.0 mL/min (>60); Globulin 2.7 g/dL (1.7-4.1); Glucose 109 mg/dL (80-110); HDL Cholesterol 53 mg/dL (40-60); HEMOLYSIS < 15 (0-50); LDL Cholesterol Calculated 111 mg/dL (<100); Sodium 137 mmol/L (137-145); Total Protein 7.1 g/dL (6.3-8.2); Triglycerides 94 mg/dL (35-150)
[2021-02-08 08:28] LABS: Potassium 5.5 mmol/L (3.4-5.1)
[2021-02-08 08:33] LABS: Creatinine Urine Random 134.2 mg/dL
[2021-02-08 08:38] LABS: Microalbumi Creatinin Ratio Ur 17.8 ug/mg CR (<30); Microalbumin Urine Random 2.4 mg/dL (0-1.6)
[2021-02-08 08:56] LABS: Prostate Specific Antigen Scrn 1.73 ng/mL (0.1-4.0)
[2021-02-13 07:10] LABS: Percent Free Testosterone 2.39 % (1.50-4.20); Testosterone Free 6.78 ng/dL (5.00-21.00); Testosterone Total 283.7 ng/dL (264.0-916.0)
== END ==
PROVIDERS: PCP Family Medicine; Referring Provider Family Medicine; Visit Provider Family Medicine
DX: I10 Essential (primary) hypertension (principal); Z12.5 Encounter for screening for malignant neoplasm of prostate; I48.0 Paroxysmal atrial fibrillation; E78.2 Mixed hyperlipidemia; R73.9 Hyperglycemia, unspecified; D72.829 Elevated white blood cell count, unspecified; E87.1 Hypo-osmolality and hyponatremia; N40.0 Benign prostatic hyperplasia without lower urinary tract symptoms
CPT/HCPCS: 36415; 80053; 80061; 82043; 82570; 84402; 84403; 85025; G0103

== ENCOUNTER → 2021-02-26 07:03 | Outpatient (CLI) | payer MEDICARE, OTHER, SELFPAY ==
[2018-07-19 07:57] VITALS: BMI 29.5
[2021-02-26 08:54] LABS: BUN Creatinine Ratio 23.8 (6-22); Blood Urea Nitrogen 25 mg/dL (9-20); Calcium 9.7 mg/dL (8.4-10.2); Carbon Dioxide 32 mmol/L (22-32); Chloride 103 mmol/L (98-107); Estimated Glomerular Filt Rate > 60.0 mL/min (>60); Glucose 120 mg/dL (80-110); HEMOLYSIS < 15 (0-50); Potassium 4.7 mmol/L (3.4-5.1); Sodium 139 mmol/L (137-145)
== END ==
PROVIDERS: PCP Family Medicine; Referring Provider Family Medicine; Visit Provider Family Medicine
DX: E87.5 Hyperkalemia (principal)
CPT/HCPCS: 36415; 80048

== ENCOUNTER → 2021-03-11 10:04 | Outpatient (CLI) | payer MEDICARE, OTHER, SELFPAY ==
[2018-07-19 07:57] VITALS: BMI 29.5
--- NOTE | 2021-03-11 10:05 | DI.ECHO.S_ITS ---
[facility] +---------+ : : [address] : : : : [id number] : : : : Phone: [phone]---------+ Echocardiogram Report + + :Name: ELDER SHERWOOD Study Date: 03/11/2021 Height: 70 in : :[facility] ReadingLocation: Weight: 186 lb : : Gender: Male BSA: 2.0 m2 : :: 1940 Age: 81 yrs BP: 130/86 mmHg: :Reason For Study: MURMUR : :Ordering Physician: SARINA, : :MAYRA Performed By: Mary Ang : :Referring: MAYRA BRANCH : + + Interpretation Summary 1) Normal left ventricular thickness, size, wall motion, and systolic function (EF 55-60%). 2) Normal right ventricular size with mildly reduced function. 3) There is moderate aortic stenosis (valve area 1.1cm2, mean gradient 21mm Hg, severity ratio 0.29). 4) Compared to the Echo done 07/19/2018, aortic stenosis has progressed from mild to moderate on this study. Procedure: A two-dimensional transthoracic echocardiogram with color flow and Doppler was performed. The study quality was technically adequate. Comparison is made with the echocardiogram of 07/19/2018. The patient was in sinus rhythm with heart rates between 60-67 bpm during the exam. Left Ventricle: The left ventricle is normal in size and wall thickness. The ejection fraction is estimated to be 55-60%. Left ventricular systolic function appears normal without focal wall motion abnormalities. Right Ventricle: The right ventricle is normal size. Right ventricular systolic function is mildly reduced. Atria: The left atrial size is normal. Right atrial size is normal. There is no Doppler evidence for an interatrial shunt. Mitral Valve: There is mild mitral annular calcification. There is trace mitral regurgitation. Aortic Valve: The aortic valve is moderately calcified. There is moderately reduced leaflet mobility. There is moderate aortic stenosis. The peak aortic velocity is 3.06 m/sec. The aortic valve mean gradient is 21 mmHg. There is trace aortic regurgitation. Tricuspid Valve: The tricuspid valve is normal in structure and function. There is mild tricuspid regurgitation. The right ventricular systolic pressure is estimated to be at least 23 mmHg based on an estimated right atrial pressure of 3 mm Hg. Pulmonic Valve: The pulmonic valve leaflets are thin and pliable; valve motion is normal. There is no pulmonic valvular regurgitation. Great Vessels: The aortic root is normal size. The ascending aorta is at the upper limits of normal in size. The IVC is of normal diameter and collapses greater than 50% with a sniff. This suggests a low right atrial pressure of 3 mm Hg. Pericardium/ Pleura There is no pericardial effusion. There is no pleural effusion. MMode/2D Measurements & Calculations LVIDd: 3.8 cm LVOT diam: 2.1 cm LVIDs: 2.6 cm Ao root diam: 3.4 cm FS: 30.3 % asc Aorta Diam: 3.4 cm IVSd: 0.84 cm Ao Arch Diam (Prox Trans): 2.5 cm LVPWd: 0.86 cm LV almazan. diameter/BSA (cm/m^2): 1.9 LV sys. diameter/BSA (cm/m^2): 1.3 LA A2 area: 21.1 cm2 RA long axis: 5.0 cm LA A4 area: 14.3 cm2 RA area: 15.2 cm2 LA length (vol): 5.1 cm RA vol: 38.9 ml LA vol: 50.7 ml RA : 19.2 ml/m2 LA vol index: 25.1 ml/m2 IVC diam: 1.9 cm RVD1 (basal): 3.7 cm RVD2 (mid): 3.3 cm TAPSE: 1.5 cm Doppler Measurements & Calculations Ao V2 max: 306.7 cm/sec LVOT Max Jose Manuel: 96.1 cm/sec Ao V2 mean: 206.2 cm/sec LV V1 max P.7 mmHg Ao max P.6 mmHg LV V1 VTI: 18.7 cm Ao mean P.9 mmHg JESSICA(I,D): 1.0 cm2 Ao V2 VTI: 64.6 cm JESSICA(V,D): 1.1 cm2 sev ratio: 0.29 JESSICA indexed to BSA (cm^2/m^2): 0.50 MV E max jose manuel: 80.3 cm/sec TR max jose manuel: 224.7 cm/sec MV A max jose manuel: 78.0 cm/sec TR max P.2 mmHg MV E/A: 1.0 PA V2 max: 140.4 cm/sec Med Peak E' Jose Manuel: 4.6 cm/sec PA V2 mean: 93.8 cm/sec E/E' med: 17.3 PA mean P.1 mmHg Lat Peak E' Jose Manuel: 8.6 cm/sec E/E' lat: 9.3 E/e' average: 13.3 MV dec time: 0.30 sec SV(OT): 65.6 ml Reading Physician:03:16 PM
== END ==
PROVIDERS: PCP Family Medicine; Referring Provider Family Medicine; Visit Provider Family Medicine
DX: I08.2 Rheumatic disorders of both aortic and tricuspid valves (principal); R01.1 Cardiac murmur, unspecified; I48.0 Paroxysmal atrial fibrillation
CPT/HCPCS: 93306

== ENCOUNTER → 2021-06-12 15:52 | Outpatient (CLI) | payer MEDICARE, OTHER, SELFPAY ==
[2018-07-19 07:57] VITALS: BMI 29.5
--- NOTE | 2021-06-12 15:54 | DI.MRI.S_ITS ---
PROCEDURE: MR LUMBAR SPINE WO CON INDICATIONS: left foot weakness and chronic low back pain TECHNIQUE: Noncontrast sagittal T1 spin echo and T2 fast echo, sagittal STIR, and T2 fast spin echo through the lumbar spine. In cases with scoliosis, additional coronal T2 fast spin echo may be performed. COMPARISON: [facility], CR, XR LUMBAR SPINE 2-3V, 04/09/2020, 14:59. [facility], CT, CT ABDOMEN PELVIS WO/W CON, 10/27/2017, 10:21. FINDINGS: Image quality: This examination is limited by involuntary motion artifact. Alignment and Curvature: There is minimal retrolisthesis seen at L2-L3, with mild retrolisthesis at L3-L4. Minimal retrolisthesis is seen at L4-L5. There is mild grade 1 anterolisthesis seen at L5-S1. No associated pars defects can be seen. Mild levoconvex scoliotic curvature is noted. Bone Marrow: Marrow is of normal overall signal. No acute vertebral body compression fractures. Spinal Cord: Conus medullaris terminates at the T12-L1 level. Visualized cord demonstrates normal signal and size. Paraspinous Soft Tissues: No paravertebral masses. T12-L1: Mild loss of disc height is seen. Loss of disc signal is seen. Mild generalized disc bulge is seen. No significant neural foraminal or central canal narrowing can be seen. L1-L2: The disc height is well-preserved. Loss of disc signal is seen at this level. Moderate generalized disc bulge is seen. Moderate facet joint hypertrophy is seen. Associated hypertrophy of the ligamentum flavum can be seen. Moderate bilateral neural foraminal narrowing is seen. Moderate central canal narrowing is seen. L2-L3: Moderate to severe loss of disc height and disc signal can be seen. Reactive marrow endplate changes are seen, which demonstrate mixed T1 weighted and T2-weighted signal, and are attributed to a combination of edema and fatty metaplasia (Modic type I and Modic type II changes). Bridging endplate osteophytes are seen. At least moderate disc bulge is seen. There is a mild central disc extrusion seen, with mild inferior migration of the disc material. At least moderate facet hypertrophy is seen. Associated hypertrophy of the ligamentum flavum can be seen. There is moderate to severe bilateral neural foraminal narrowing seen, right worse than left. There is a degree of compression seen upon the exiting nerve roots. Severe central canal narrowing is seen, as on series 6, image 19. L3-L4: Moderate to severe loss of disc height and disc signal can be seen. At least moderate disc bulge is seen, with a central/left disc protrusion. At least moderate facet hypertrophy is seen. Associated hypertrophy of the ligamentum flavum can be seen. There is moderate to severe bilateral neural foraminal narrowing seen. There is a degree of compression seen upon the exiting nerve roots. Severe central canal narrowing is seen. L4-L5: Moderate to severe loss of disc height and disc signal can be seen. At least moderate disc bulge is seen, which is eccentric to the left. There is moderate to prominent facet hypertrophy seen, left worse than right. There is moderate to severe bilateral neural foraminal narrowing seen, left worse than right. There is a degree of compression seen upon the exiting nerve roots. Moderate to severe central canal narrowing is seen. L5-S1: Moderate to severe loss of disc height and disc signal can be seen. At least moderate disc bulge is seen, which is eccentric to the left. There is at least moderate right-sided and moderate to prominent left-sided facet hypertrophy. There is moderate to severe bilateral neural foraminal narrowing seen, left worse than right. There is a degree of compression seen upon the exiting nerve roots. Moderate to severe central canal narrowing is seen. IMPRESSION: Multiple levels of prominent lumbar spine degenerative change are seen, including severe central canal narrowing at L2-L3 and L3-L4. Several sites of significant neural foraminal narrowing can be seen, with associated exiting nerve root compression. Mild levoconvex scoliotic curvature is noted. Dictated by: Juni Lepe M.D. on 06/12/2021 at 15:39 Approved by: Juni Lepe M.D. on 06/12/2021 at 15:45
== END ==
PROVIDERS: PCP Family Medicine; Referring Provider Family Medicine; Visit Provider Family Medicine
DX: M47.26 Other spondylosis with radiculopathy, lumbar region (principal); M48.061 Spinal stenosis, lumbar region without neurogenic claudication; M41.86 Other forms of scoliosis, lumbar region; M54.50 Low back pain, unspecified; M21.372 Foot drop, left foot
CPT/HCPCS: 72148

== ENCOUNTER → 2021-08-07 11:01 | Outpatient (CLI) | payer MEDICARE, OTHER, SELFPAY ==
[2018-07-19 07:57] VITALS: BMI 29.5
[2021-08-07 13:10] LABS: COVID19 -Nasal RAPID Negative (Negative)
== END ==
PROVIDERS: PCP Family Medicine; Visit Provider Surgery
DX: Z20.822 Contact with and (suspected) exposure to COVID-19 (principal); Z01.812 Encounter for preprocedural laboratory examination
CPT/HCPCS: 87635; C9803

== ENCOUNTER 2021-08-08 06:46 | Day surgery (SDC) | payer MEDICARE, OTHER, SELFPAY ==
[2018-07-19 07:57] VITALS: BMI 29.5
--- NOTE | 2021-08-08 | PATH_ITS ---
[facility] Accession Number: [id number] . 01 Material submitted: . PART A: colon - ACENDING COLON POLYPS PART B: colon - TRANSVERSE COLON POLYPS . 01 Diagnosis: A. Ascending Colon, Polyps, Biopsy: Tubular adenoma in two of four fragments. . B. Transverse Colon, Polyps, Biopsies: Tubular adenoma, two fragments. MRV 08/12/2021 1526 Local . 01 Electronically signed: . Opal Gracia MD, Pathologist NPI- [id number] . 01 Gross description: . Part A: ACENDING COLON POLYPS: Received in formalin are multiple fragment(s) of virk, soft tissue measuring 0.8 x 0.5 x 0.2 cm in aggregate submitted entirely in 1 cassette(s) Part B: TRANSVERSE COLON POLYPS: Received in formalin are 2 fragment(s) of virk, soft tissue measuring 0.7 x 0.3 x 0.2 cm to 0.3 x 0.2 x 0.2 cm submitted entirely in 1 cassette(s) /CPE 08/09/2021 0419 Local . 01 Pathologist provided ICD-10: D12.2, D12.3 . 01 CPT . 742001, [id number] Specimen Comment: A courtesy copy of this report has been sent to [phone] Performed at: 01 [facility] [address] [place] [address], [place], [place] [id number] MD Sandeep Roldan MD Phone: [phone]
[2021-08-08 07:28] VITALS: BP 142/74; PULSE 61; RESP 20; TEMP 36.5; O2SAT 95; BMI 27.2
[2021-08-08] MEDS: LACTATED RINGERS 1,000 ML 200 ML IV (07:43)
--- NOTE | 2021-08-08 07:44 | P.HP_ITS ---
History of Present Illness History of Present Illness Date Patient Seen: 08/08/21 Time Patient Seen: 07:44 [address] complaint: [facility] Narrative: Fareed is a 81-year-old man who had a colonoscopy in the past with polyps removed. He was told to come back for his colonoscopy this year. Patient History Medical History (Updated 08/08/21 @ 07:45 by Axel Guo MD) Aortic stenosis BPH (benign prostatic hyperplasia) (2003) Chicken pox (1954) Colon polyps Foot drop, left Hayfever (1995) Hemorrhoids (2003) Hypertension (1995) Low testosterone in male Lung cancer (2002) Measles (1954) Neuroforaminal stenosis of lumbar spine Paroxysmal atrial fibrillation Rheumatic fever (1956) Spinal stenosis of lumbar region Surgical History (Updated 09/11/20 @ 12:17 by Imtiaz Bedolla MD) Anesthesia History of prostate surgery (2005) Status post partial lobectomy of lung (2002) Family & Social History Family History Brother Age: 74 Leukemia in remission Mother Heart disease Father Stroke Sister No problems noted. Sister No problems noted. Social History: household members spouse,family Tobacco & Substance use: Smoking Status Former smoker alcohol intake frequency holiday/special occasion Substance Use Type does not use Meds Home Medications and Allergies Home Medications Medication Instructions Recorded Confirmed Type MULTIVITAMIN (#MULTIPLE VITAMINS) 1 cap PO Q DAY #0 09/19/10 06/10/21 History psyllium husk 0.52 gram capsule 0.52 gm PO Q DAY #0 09/19/10 08/08/21 History (Metamucil) aspirin 325 mg tablet 325 mg PO DAILY 09/01/18 08/08/21 History omeprazole 20 mg capsule,delayed 20 mg PO DAILY #90 cap 12/07/20 08/08/21 Rx release tamsulosin 0.4 mg capsule (Flomax) 0.8 mg PO DAILY #180 cap 12/07/20 08/08/21 Rx trazodone 50 mg tablet 100 mg PO BEDTIME PRN #180 tab 12/07/20 08/08/21 Rx simvastatin 20 mg tablet 20 mg PO BEDTIME #100 tab 01/10/21 08/08/21 Rx lisinopril 40 mg tablet 40 mg PO ONCE #180 tab 02/13/21 08/08/21 Rx tadalafil 5 mg tablet 5 mg PO DAILY #90 tab 03/27/21 08/08/21 Rx hydrochlorothiazide 12.5 mg tablet See Rx Instructions .ROUTE 06/11/21 08/08/21 Rx .COMPLEX #90 tab testosterone 50 mg/5 gram (1 %) 2 tube TOPICAL DAILY #900 g 06/11/21 08/08/21 Rx transdermal gel (Testim) Allergies Allergy/AdvReac Type Severity Reaction Status Date / Time No Known Drug Allergies Allergy Verified 08/08/21 07:24 Exam Vital Signs (past 8 hours): - 08/08/21 07:28 Temperature 97.7 F Pulse Rate 61 Respiratory Rate 20 Blood Pressure 142/74 H Pulse Oximetry 95 Oxygen Delivery Method Room Air Const General: healthy appearing Resp Effort & Inspection: normal respiratory effort GI Palpation: soft Assessment & Plan Assessment and plan (1) History of colon polyps: Status: Acute Plan We reviewed the risks and benefits of colonoscopy for colon cancer screening and he would like to proceed. COVID-19 COVID-19 status: Negative Result date/Date tested (Pos, Neg/Pending): 08/07/21 Time Spent With Patient Critical Care time: I spent a total of [] minutes of critical care time on this patient's care today; this time is exclusive of procedural time.
[2021-08-08] MEDS: fentaNYL 250 MCG/5 ML INJ 50 MCG IV (08:09)
[2021-08-08] MEDS: MIDAZOLAM 5 MG/5 ML VIAL 4 MG IV (08:10)
[2021-08-08 08:21] VITALS: BP 126/84; PULSE 65; RESP 12; TEMP 36.7; O2SAT 95
--- NOTE | 2021-08-08 08:21 | P.HP_ITS ---
History of Present Illness History of Present Illness Chief complaint: [facility] [place] Narrative: Fareed is a 81-year-old man who had a colonoscopy in the past with polyps removed. He was told to come back for his colonoscopy this year. Patient History Medical History (Updated 08/08/21 @ 07:45 by Axel Guo MD) Aortic stenosis BPH (benign prostatic hyperplasia) (2003) Chicken pox (1954) Colon polyps Foot drop, left Hayfever (1995) Hemorrhoids (2003) Hypertension (1995) Low testosterone in male Lung cancer (2002) Measles (1954) Neuroforaminal stenosis of lumbar spine Paroxysmal atrial fibrillation Rheumatic fever (1956) Spinal stenosis of lumbar region Surgical History (Updated 09/11/20 @ 12:17 by Imtiaz Bedolla MD) Anesthesia History of prostate surgery (2005) Status post partial lobectomy of lung (2002) Family & Social History Family History Brother Age: 74 Leukemia in remission Mother Heart disease Father Stroke Sister No problems noted. Sister No problems noted. Social History: household members spouse,family Tobacco & Substance use: Smoking Status Former smoker alcohol intake frequency holiday/special occasion Substance Use Type does not use Meds Home Medications and Allergies Home Medications Medication Instructions Recorded Confirmed Type MULTIVITAMIN (#MULTIPLE VITAMINS) 1 cap PO Q DAY #0 09/19/10 06/10/21 History psyllium husk 0.52 gram capsule 0.52 gm PO Q DAY #0 09/19/10 08/08/21 History (Metamucil) aspirin 325 mg tablet 325 mg PO DAILY 09/01/18 08/08/21 History omeprazole 20 mg capsule,delayed 20 mg PO DAILY #90 cap 12/07/20 08/08/21 Rx release tamsulosin 0.4 mg capsule (Flomax) 0.8 mg PO DAILY #180 cap 12/07/20 08/08/21 Rx trazodone 50 mg tablet 100 mg PO BEDTIME PRN #180 tab 12/07/20 08/08/21 Rx simvastatin 20 mg tablet 20 mg PO BEDTIME #100 tab 01/10/21 08/08/21 Rx lisinopril 40 mg tablet 40 mg PO ONCE #180 tab 02/13/21 08/08/21 Rx tadalafil 5 mg tablet 5 mg PO DAILY #90 tab 03/27/21 08/08/21 Rx hydrochlorothiazide 12.5 mg tablet See Rx Instructions .ROUTE 06/11/21 08/08/21 Rx .COMPLEX #90 tab testosterone 50 mg/5 gram (1 %) 2 tube TOPICAL DAILY #900 g 06/11/21 08/08/21 Rx transdermal gel (Testim) Allergies Allergy/AdvReac Type Severity Reaction Status Date / Time No Known Drug Allergies Allergy Verified 08/08/21 07:24 Exam Vital Signs (past 8 hours): - 08/08/21 07:28 Temperature 97.7 F Pulse Rate 61 Respiratory Rate 20 Blood Pressure 142/74 H Pulse Oximetry 95 Oxygen Delivery Method Room Air Assessment & Plan Assessment and plan (1) History of colon polyps: Status: Acute Plan Risks and benefits reviewed. Plan for colonoscopy. Time Spent With Patient Critical Care time: I spent a total of [] minutes of critical care time on this patient's care today; this time is exclusive of procedural time.
--- NOTE | 2021-08-08 08:23 | PM.OP.COLON ---
Operative Date/Time/Diagnoses Date of procedure: 08/08/21 Time of procedure: 08:23 Pre-op diagnosis: History of colon polyps Post-op diagnosis: same Procedure Notes Procedure in detail: Surgeon: Axel Guo MD Procedure: The patient was brought to the endoscopy suite, placed in left lateral decubitus position. The patient was connected to monitoring devices. A time-out was performed. Sedation was administered. Once the patient was adequately sedated, a digital rectal exam was performed and was normal. The scope was then inserted and advanced to the cecum where the appendiceal orifice was identified and photographed. The terminal ileum was intubated. The scope was then slowly withdrawn over greater than 6 minutes. Mucosa was thoroughly inspected. There were 2 polyps in the ascending colon each about 5 mm which were removed with cold snare. There was 2 polyps in the transverse colon, 1 was about 5 mm and 1 about 7 mm, both removed with cold snare. The scope was retroflexed in the rectum. Some mild internal hemorrhoids were noted. The scope was straightened and removed. The patient was awakened and brought to recovery. Versed: 4 mg Fentanyl: 50 mcg EBL: 5 Findings: Subcentimeter polyps in the ascending colon and transverse colon Scope withdrawal time: 18 Sedation minutes: 25 Post-procedure Recommendations: Will call with biopsy results Disposition: PACU
--- NOTE | 2021-08-08 08:25 | SUR.PHASEI ---
Patient to recovery room with nursing staff s/p colonoscopy in stable condition; lying on left side; abdomen soft; vss. no distress noted.
[2021-08-08 08:26] VITALS: BP 110/77; PULSE 65; RESP 10; RESP 13; O2SAT 95
[2021-08-08 08:31] VITALS: BP 136/84; PULSE 65; RESP 15; O2SAT 96
[2021-08-08 08:38] VITALS: BP 130/90; PULSE 65; RESP 20; TEMP 37; O2SAT 96
== END 2021-08-08 08:48 | disposition home or self-care (01) ==
PROVIDERS: PCP Family Medicine; Referring Provider Surgery; Visit Provider Surgery
PROC: 0DJD8ZZ Inspection of Lower Intestinal Tract, Via Natural or Artificial Opening Endoscopic (ICD-10-PCS; CPT 45378; principal; 2021-08-08 07:45)
DX: Z12.11 Encounter for screening for malignant neoplasm of colon (principal); Z86.010 Personal history of colon polyps; K64.8 Other hemorrhoids; D12.2 Benign neoplasm of ascending colon; D12.3 Benign neoplasm of transverse colon
CPT/HCPCS: 45385; 99152; 99153; J2250; J3010

== ENCOUNTER → 2022-02-14 09:03 | Outpatient (CLI) | payer MEDICARE, OTHER, SELFPAY ==
[2018-07-19 07:57] VITALS: BMI 29.5
[2022-02-14 10:19] LABS: Add Manual Diff / Slide Review NO; Basophils Absolute Auto 0 /uL (0-100); Basophils Percent Auto 0.4 % (0-2); Eosinophils Absolute Auto 500 /uL (0-450); Eosinophils Percent Auto 8.8 % (2-4); Hematocrit 47.7 % (41-53); Hemoglobin 16.3 g/dL (13.5-17.5); Lymphocytes Absolute Auto 1200 /uL (1100-4500); Lymphocytes Percent Auto 20.8 % (25-40); Mean Corpuscular HGB Conc 34.2 % (30-36); Mean Corpuscular Hemoglobin 31.2 PG (26-34); Mean Corpuscular Volume 91.4 fL (80-100); Monocytes Absolute Auto 700 /uL (0-900); Monocytes Percent Auto 12.5 % (3-14); Neutrophils Absolute Auto 3300 /uL (1500-7000); Neutrophils Percent Auto 57.5 % (50-75); Platelet Count 139 X10^3/uL (150-400); Red Blood Cell Count 5.22 X10^6/uL (4.5-5.9); Red Cell Distribution Width 13.4 % (11.6-14.8); White Blood Cell Count 5.8 X10^3/uL (4.5-11.0)
[2022-02-14 10:25] LABS: Hemoglobin A1C% w Est Avg Glu 6.3 % (4.0-6.0)
[2022-02-14 11:06] LABS: Creatinine Urine Random 319.4 mg/dL
[2022-02-14 11:10] LABS: Microalbumi Creatinin Ratio Ur 11.8 ug/mg CR (<30); Microalbumin Urine Random 3.8 mg/dL (0-1.6)
[2022-02-14 12:18] LABS: Alanine Aminotransferase 27 IU/L (<50); Albumin 4.2 g/dL (3.5-5.0); Albumin Globulin Ratio 1.7 (1.0-2.8); Alkaline Phosphatase 64 U/L (38-126); Aspartate Aminotransferase 33 IU/L (17-59); BUN Creatinine Ratio 19.5 (6-22); Bilirubin Total 0.6 mg/dL (0.2-1.3); Blood Urea Nitrogen 22 mg/dL (9-20); Calcium 9.3 mg/dL (8.4-10.2); Carbon Dioxide 29 mmol/L (22-32); Chloride 99 mmol/L (98-107); Cholesterol 207 mg/dL (140-199); Estimated Glomerular Filt Rate > 60 mL/min (>60); Globulin 2.5 g/dL (1.7-4.1); Glucose 113 mg/dL (80-110); HDL Cholesterol 52 mg/dL (40-60); LDL Cholesterol Calculated 136 mg/dL (<100); Sodium 135 mmol/L (137-145); Total Protein 6.7 g/dL (6.3-8.2); Triglycerides 93 mg/dL (35-150)
[2022-02-14 16:58] LABS: HEMOLYSIS < 15 (0-50)
== END ==
PROVIDERS: PCP Family Medicine; Referring Provider Family Medicine; Visit Provider Family Medicine
DX: R73.9 Hyperglycemia, unspecified (principal); E78.2 Mixed hyperlipidemia; Z12.5 Encounter for screening for malignant neoplasm of prostate; I10 Essential (primary) hypertension; I48.0 Paroxysmal atrial fibrillation
CPT/HCPCS: 80053; 80061; 82043; 82570; 83036; 85025; G0103

== ENCOUNTER → 2022-12-25 16:14 | Outpatient (CLI) | payer MEDICARE, OTHER, SELFPAY ==
[2022-12-23 11:58] VITALS: BMI 29.5
--- NOTE | 2022-12-25 16:16 | DI.RAD.S_ITS ---
PROCEDURE: XR CHEST 2V INDICATIONS: morning fevers, hx lung cancer Right upper lobe resected TECHNIQUE: 2 views of the chest were acquired. [facility], XR CHEST 2V, 05/09/2020, 12:26. FINDINGS: Surgical changes and devices: None. Lungs and pleura: Stable linear scar in the left lower lobe. Lungs are otherwise clear. No pleural effusions or pneumothorax. Mediastinum: Mediastinal contours are normal. Heart size is normal. Bones and chest wall: No suspicious bony abnormalities. Soft tissues appear unremarkable. Upper abdomen: Visualized upper abdomen is unremarkable. IMPRESSION: No acute cardiopulmonary abnormality. Dictated by: Yecenia Jackson M.D. on 12/25/2022 at 18:25 Approved by: Yecenia Jackson M.D. on 12/25/2022 at 18:29
== END ==
PROVIDERS: PCP Family Medicine; Referring Provider Physician Assistant; Visit Provider Physician Assistant
DX: R68.89 Other general symptoms and signs (principal); R73.9 Hyperglycemia, unspecified
CPT/HCPCS: 71046

== ENCOUNTER → 2022-12-26 07:22 | Outpatient (CLI) | payer MEDICARE, OTHER, SELFPAY ==
[2022-12-23 11:58] VITALS: BMI 29.5
[2022-12-26 08:49] LABS: Add Manual Diff / Slide Review NO; Basophils Absolute Auto 0 /uL (0-100); Basophils Percent Auto 0.7 % (0-2); Eosinophils Absolute Auto 1000 /uL (0-450); Eosinophils Percent Auto 15.2 % (2-4); Hematocrit 50.4 % (41-53); Lymphocytes Absolute Auto 1600 /uL (1100-4500); Lymphocytes Percent Auto 24.5 % (25-40); Mean Corpuscular HGB Conc 33.8 % (30-36); Mean Corpuscular Hemoglobin 31.5 PG (26-34); Mean Corpuscular Volume 93.3 fL (80-100); Monocytes Absolute Auto 800 /uL (0-900); Monocytes Percent Auto 11.8 % (3-14); Neutrophils Absolute Auto 3100 /uL (1500-7000); Neutrophils Percent Auto 47.8 % (50-75); Platelet Count 146 X10^3/uL (150-400); White Blood Cell Count 6.6 X10^3/uL (4.5-11.0)
[2022-12-26 09:00] LABS: Hemoglobin A1C% w Est Avg Glu 6.6 % (4.0-6.0)
[2022-12-26 09:16] LABS: Alanine Aminotransferase 31 IU/L (<50); Albumin 4.5 g/dL (3.5-5.0); Albumin Globulin Ratio 1.5 (1.0-2.8); Alkaline Phosphatase 61 U/L (38-126); Aspartate Aminotransferase 40 IU/L (17-59); BUN Creatinine Ratio 24.5 (6-22); Bilirubin Total 0.9 mg/dL (0.2-1.3); Blood Urea Nitrogen 27 mg/dL (9-20); Calcium 9.9 mg/dL (8.4-10.2); Carbon Dioxide 29 mmol/L (22-32); Chloride 96 mmol/L (98-107); Estimated Glomerular Filt Rate > 60 mL/min (>60); Globulin 3.1 g/dL (1.7-4.1); Glucose 120 mg/dL (80-110); HEMOLYSIS < 15 (0-50); Sodium 134 mmol/L (137-145); Total Protein 7.6 g/dL (6.3-8.2)
[2022-12-26 09:45] LABS: TSH w/ Reflex to FT4 4.66 uIU/mL (0.47-4.68)
[2023-01-05 08:17] LABS: Percent Free Testosterone 2.92 % (1.50-4.20); Testosterone Total 647.2 ng/dL (264.0-916.0)
== END ==
PROVIDERS: PCP Family Medicine; Referring Provider Physician Assistant; Visit Provider Physician Assistant
DX: R68.89 Other general symptoms and signs (principal); E11.9 Type 2 diabetes mellitus without complications; E78.2 Mixed hyperlipidemia; I10 Essential (primary) hypertension
CPT/HCPCS: 36415; 80053; 83036; 84402; 84403; 84443; 85025

== ENCOUNTER 2023-01-19 09:45 | Inpatient (IN) | payer MEDICARE, OTHER, SELFPAY ==
[2022-12-23 11:58] VITALS: BMI 29.5
[2023-01-19] VITALS (23 sets, daily range): BP systolic 94–145; BP diastolic 56–76; PULSE 73–120; RESP 12–33; TEMP 37.1–37.3; O2SAT 87–98; BMI 27.2; BMI 27.0
[2023-01-19 10:51] LABS: INR 1.1 (0.9-1.3); Prothrombin Time 12.3 SECONDS (10.1-12.7)
[2023-01-19 10:54] LABS: PTT Partial Thromboplastin Tim 23 SECONDS (26-36)
[2023-01-19 10:56] LABS: Add Manual Diff / Slide Review NO; Alanine Aminotransferase 23 IU/L (<50); Albumin Globulin Ratio 1.4 (1.0-2.8); Alkaline Phosphatase 41 U/L (38-126); Aspartate Aminotransferase 34 IU/L (17-59); BUN Creatinine Ratio 85.4 (6-22); Basophils Absolute Auto 100 /uL (0-100); Basophils Percent Auto 0.3 % (0-2); Bilirubin Total 0.6 mg/dL (0.2-1.3); Blood Urea Nitrogen 88 mg/dL (9-20); Carbon Dioxide 30 mmol/L (22-32); Chloride 99 mmol/L (98-107); Eosinophils Absolute Auto 0 /uL (0-450); Estimated Glomerular Filt Rate > 60 mL/min (>60); Globulin 2.9 g/dL (1.7-4.1); Glucose 193 mg/dL (80-110); HEMOLYSIS 17 (0-50); Hematocrit 42.7 % (41-53); Hemoglobin 14.5 g/dL (13.5-17.5); Lipase 75 U/L (23-300); Lymphocytes Absolute Auto 1500 /uL (1100-4500); Lymphocytes Percent Auto 8.9 % (25-40); Mean Corpuscular HGB Conc 33.9 % (30-36); Mean Corpuscular Hemoglobin 32.1 PG (26-34); Mean Corpuscular Volume 94.7 fL (80-100); Monocytes Absolute Auto 1600 /uL (0-900); Monocytes Percent Auto 9.6 % (3-14); Neutrophils Absolute Auto 13600 /uL (1500-7000); Neutrophils Percent Auto 81.2 % (50-75); Platelet Count 156 X10^3/uL (150-400); Potassium 4.5 mmol/L (3.4-5.1); Red Blood Cell Count 4.51 X10^6/uL (4.5-5.9); Red Cell Distribution Width 14.1 % (11.6-14.8); Sodium 137 mmol/L (137-145); Total Protein 6.9 g/dL (6.3-8.2); White Blood Cell Count 16.8 X10^3/uL (4.5-11.0)
[2023-01-19 10:58] LABS: Calcium 12.9 mg/dL (8.4-10.2)
[2023-01-19 10:59] LABS: Lactate (Lactic Acid) 2.6 mmol/L (0.7-2.1)
[2023-01-19] MEDS: SODIUM CHLORIDE 0.9% 1,000 ML 1000 ML IV ×2 (11:00→12:34)
[2023-01-19] MEDS: PANTOPRAZOLE 40 MG VIAL 80 MG IV (11:00)
--- NOTE | 2023-01-19 11:02 | ED.ABDPAIN ---
HPI - Abdominal Pain General Chief Complaint: Abdominal Pain Stated Complaint: DR pruitt extreme pain since Sat morning Time Seen by Provider: 01/19/23 10:42 Source: patient Mode of arrival: Ambulatory History of Present Illness HPI narrative: Patient 82-year-old male history of hypertension on hydrochlorothiazide and lisinopril, BPH hyperlipidemia thrombocytopenia presenting today with ongoing hiccups. is primary historian he is coming reports that he is had hiccups ongoing for the last 72 hours. Not able to sleep secondary to them. He generally feels weak and tired. He may have had some blood in his stool 1 or 2 times. They have vomited 1 or 2 times of blood. Not nauseous now denies any abdominal pain. He is really just exhausted it and feels sore across his abdomen from the ongoing hiccups. He is noted to be hypotensive blood pressure 94/56 with a heart rate of 120 and he is afebrile. Related Data Home Medications Medication Instructions Recorded Confirmed MULTIVITAMIN (#MULTIPLE VITAMINS) 1 cap PO Q DAY ##0 09/19/10 01/19/23 psyllium husk 0.52 gram capsule 0.52 gm PO Q DAY ##0 09/19/10 01/19/23 (Metamucil) aspirin 81 mg tablet,delayed 81 mg PO DAILY 07/14/22 01/19/23 release (Adult Aspirin Regimen) Previous Rx's Medication Instructions Recorded hydrochlorothiazide 12.5 mg tablet See Rx Instructions .Route 03/31/22 .COMPLEX #90 tabs tadalafil 5 mg tablet 5 mg PO DAILY #90 tabs 04/24/22 tadalafil 20 mg tablet 20 mg PO DAILY PRN sexual activity 05/05/22 #100 tabs tamsulosin 0.4 mg capsule See Rx Instructions .Route 08/28/22 .COMPLEX #180 caps trazodone 50 mg tablet See Rx Instructions .Route 08/28/22 .COMPLEX #180 tabs testosterone 50 mg/5 gram (1 %) 2 tube topical DAILY muscular 09/18/22 transdermal gel (Testim) atrophy #900 grams lisinopril 40 mg tablet See Rx Instructions .Route 12/04/22 .COMPLEX #90 tabs simvastatin 20 mg tablet See Rx Instructions .Route 12/04/22 .COMPLEX #90 tabs Allergies Allergy/AdvReac Type Severity Reaction Status Date / Time No Known Drug Allergies Allergy Verified 01/19/23 10:21 Review of Systems Review of Systems ROS Unobtainable: All systems reviewed & are unremarkable except as noted in HPI and below Patient History Medical History Prediabetes Neuroforaminal stenosis of lumbar spine Spinal stenosis of lumbar region Foot drop, left Aortic stenosis Colon polyps Paroxysmal atrial fibrillation Hayfever (1995) Rheumatic fever (1956) Measles (1954) Chicken pox (1954) Hemorrhoids (2003) Hypertension (1995) Low testosterone in male Lung cancer (2002) BPH (benign prostatic hyperplasia) (2003) Surgical History Anesthesia History of prostate surgery (2005) Status post partial lobectomy of lung (2002) Family History Brother Age: 76 Leukemia in remission Mother Heart disease Father Stroke Sister No problems noted. Sister No problems noted. Social History household members: spouse and family Smoking Status: Former smoker alcohol intake: never Smoking Status: Former smoker alcohol intake frequency: holidays/special occasions only Substance Use Type: does not use Exam Initial Vital Signs Initial Vital Signs: Vital Signs Temperature 98.9 F 01/19/23 10:12 Pulse Rate 120 H 01/19/23 10:12 Respiratory Rate 18 01/19/23 10:12 Blood Pressure 94/56 L 01/19/23 10:12 Pulse Oximetry 98 01/19/23 10:12 Oxygen Delivery Method Room Air 01/19/23 10:12 GENERAL: Alert week 82-year-old male who is sick HEENT: Head atraumatic,EOMI, pupils reactive, face symmetric, moist mucous membranes CARDIOVASCULAR: Regular rate and rhythm without murmurs, rubs or gallops. RESPIRATORY: Breath sounds equal bilaterally, no wheezes rales or rhonchi. ABDOMEN: Soft, tender across the abdomen upper no distention no guarding no rebound EXTREMITIES: Normal range of motion, no clubbing or edema. Neurovascularly intact NEUROLOGICAL: Alert and oriented x4.Normal gait and speech. Moving all extremities SKIN: Warm, dry, no laceration, no petechiae, no rashes or lesions. Course Orders Ordered: ED Orders 01/19/23 10:21 EKG-12 Lead Stat 01/19/23 10:25 Covid-19 + FLU A/B + RSV - PCR Stat 01/19/23 10:30 Complete Blood Count AUTO DIFF Stat Comprehensive Metabolic Panel Stat Lactate (Lactic Acid) Stat Lipase Stat PTT Partial Thromboplastin Feliberto Stat Prothrombin Time INR Stat Troponin & CK Cardiac Panel Stat Type and Screen Stat 01/19/23 12:40 UA Complete [Urinalysis and Microscopic] Stat 01/19/23 13:50 Basic Metabolic Panel Urgent 01/20/23 05:00 Basic Metabolic Panel DAILY Complete Blood Count AUTO DIFF DAILY Magnesium DAILY 01/21/23 05:00 Basic Metabolic Panel DAILY Complete Blood Count AUTO DIFF DAILY Magnesium DAILY 01/22/23 05:00 Basic Metabolic Panel DAILY Complete Blood Count AUTO DIFF DAILY Magnesium DAILY Acetaminophen (Acetaminophen 325 Mg Tablet) 650 mg PO Q6H PRN PRN Reason: Fever/Mild Pain (1-3) Baclofen (Baclofen 10 Mg Tablet) 10 mg PO TID [facility] Last Admin: 01/19/23 14:29 Dose: 10 mg Documented By: JESS Enoxaparin Sodium (Enoxaparin 40 Mg/0.4 Ml Syringe) 40 mg SUBCUT DAILY [facility] Sodium Chloride (Normal Saline 0.9%) 1,000 mls @ 100 mls/hr IV CONT [facility] Last Admin: 01/19/23 13:55 Dose: 100 mls/hr Documented By: JESS Naloxone HCl (Naloxone 0.4 Mg/Ml Vial) 0.2 mg IV Q2MIN PRN PRN Reason: Opiate Reversal Ondansetron HCl (Ondansetron 4 Mg/2 Ml Inj) 4 mg IV Q8HR PRN PRN Reason: Nausea And Vomiting Pantoprazole Sodium (Pantoprazole 40 Mg Vial) 40 mg IV BID [facility] Discontinued Medications Sodium Chloride (Normal Saline 0.9%) 1,000 mls @ 1,000 mls/hr IV BOLUS ONE Stop: 01/19/23 11:43 Last Infusion: 01/19/23 12:02 Dose: Infused Documented By: Admin: 01/19/23 11:00 Dose: 1,000 mls/hr Documented By: MARJ Sodium Chloride (Normal Saline 0.9%) 1,000 mls @ 1,000 mls/hr IV BOLUS ONE Stop: 01/19/23 13:08 Last Infusion: 11/13/23 13:58 Dose: Infused Documented By: Admin: 01/19/23 12:34 Dose: 1,000 mls/hr Documented By: MALATHI Lorazepam (Lorazepam 2 Mg/Ml Inj) 0.5 mg IV NOW ONE Stop: 01/19/23 11:03 Last Admin: 01/19/23 11:09 Dose: 0.5 mg Documented By: MARJ Ondansetron HCl (Ondansetron 4 Mg Odt) 4 mg PO NOW PRN PRN Reason: Nausea And Vomiting Ondansetron HCl (Ondansetron 4 Mg/2 Ml Inj) 4 mg IV NOW PRN PRN Reason: Nausea And Vomiting Pantoprazole Sodium (Pantoprazole 40 Mg Vial) 80 mg IV NOW ONE Stop: 01/19/23 10:32 Last Admin: 01/19/23 11:00 Dose: 80 mg Documented By: MARJ Vital Signs Vital signs: Vital Signs - 8 hr 01/19/23 10:12 01/19/23 10:56 01/19/23 10:57 Temperature 98.9 F Pulse Rate 120 H 89 90 Respiratory Rate 18 22 Blood Pressure 94/56 L Pulse Oximetry 98 93 97 Oxygen Delivery Method Room Air 01/19/23 10:57 01/19/23 11:00 01/19/23 11:29 Temperature Pulse Rate 92 H 80 Respiratory Rate 27 H 13 Blood Pressure 129/76 Pulse Oximetry 98 95 Oxygen Delivery Method 01/19/23 11:29 01/19/23 11:30 01/19/23 11:30 Temperature Pulse Rate 81 Respiratory Rate 17 Blood Pressure 138/74 137/72 Pulse Oximetry 96 Oxygen Delivery Method 01/19/23 12:00 01/19/23 12:00 Temperature Pulse Rate 90 Respiratory Rate 17 Blood Pressure 130/69 Pulse Oximetry 95 Oxygen Delivery Method MDM - Abdominal Pain Lab Data 01/19/23 10:30 01/19/23 13:50 Labs: Lab Results 01/19/23 01/19/23 Range/Units 10:25 10:30 WBC 16.8 H (4.5-11.0) X10^3/uL RBC 4.51 (4.5-5.9) X10^6/uL Hgb 14.5 (13.5-17.5) g/dL Hct 42.7 (41-53) % MCV 94.7 (80-100) fL MCH 32.1 (26-34) PG MCHC 33.9 (30-36) % RDW 14.1 (11.6-14.8) % Plt Count 156 (150-400) X10^3/uL Neut % (Auto) 81.2 H (50-75) % Lymph % (Auto) 8.9 L (25-40) % [place] % (Auto) 9.6 (3-14) % Eos % (Auto) 0.0 L (2-4) % Baso % (Auto) 0.3 (0-2) % Neut # (Auto) 38086 H (0902-8810) /uL Lymph # (Auto) 1500 (0162-1282) /uL [place] # (Auto) 1600 H (0-900) /uL Eos # (Auto) 0 (0-450) /uL Baso # (Auto) 100 (0-100) /uL PT 12.3 (10.1-12.7) SECONDS INR 1.1 (0.9-1.3) APTT 23 L (26-36) SECONDS Sodium 137 (137-145) mmol/L Potassium 4.5 (3.4-5.1) mmol/L Chloride 99 (98-107) mmol/L Carbon Dioxide 30 (22-32) mmol/L BUN 88 H (9-20) mg/dL Creatinine 1.03 (0.66-1.25) mg/dL Estimated GFR > 60 (>60) mL/min BUN/Creatinine Ratio 85.4 H (6-22) Glucose 193 H (80-110) mg/dL Lactate 2.6 H (0.7-2.1) mmol/L Calcium 12.9 H* (8.4-10.2) mg/dL Total Bilirubin 0.6 (0.2-1.3) mg/dL AST 34 (17-59) IU/L ALT 23 (<50) IU/L Alkaline Phosphatase 41 (38-126) U/L Total Creatine Kinase 97 (55-170) U/L Troponin I 0.034 (0.01-0.034) ng/mL Total Protein 6.9 (6.3-8.2) g/dL Albumin 4.0 (3.5-5.0) g/dL Globulin 2.9 (1.7-4.1) g/dL Albumin/Globulin Ratio 1.4 (1.0-2.8) Lipase 75 (23-300) U/L SARS-CoV-2 (PCR) Negative (Negative) Influenza A (RT-PCR) Flu a negative (NEGATIVE) Influenza B (RT-PCR) Flu b negative (NEGATIVE) RSV (PCR) Negative (Negative) Blood Type O Positive Antibody Screen Negative MDM Narrative Medical decision making narrative: Patient 82-year-old male who presents with some weakness and ongoing hiccups for last 72 hours. He is very tired he is sore all across his diaphragm. No fever. He just is generally weak and exhausted. He is found to have some leukocytosis there is no obvious infection. His electrolytes was found to have calcium of 12.9 lactate 2.6, BUN 88 creatinine 1.0 probably some dehydration vs upper gi bleed. He does report some at some point but hemoglobin is stable. He was given Ativan to help with his hiccups and gave him some relief it did actually help for awhile but then woke up and they started again. Dr. Hernandez updated patient's symptoms test results agrees to observation Discharge Plan Departure Patient Disposition: Admitted as Observation Clinical Impression: Hypercalcemia Admit Date/Time: 01/19/23 12:26 Admit Provider: David Hernandez
[2023-01-19 11:08] LABS: Creatine Kinase 97 U/L (55-170)
[2023-01-19] MEDS: LORazepam 2 MG/ML INJ 0.5 MG IV (11:09)
[2023-01-19 11:20] LABS: Troponin I 0.034 ng/mL (0.01-0.034)
--- NOTE | 2023-01-19 11:21 | PC.NURSE ---
Pt arrived to ED with spouse and reports that he has been having black tarry stools and painful hiccups/spasms for 72 hours. Pt reports a 5/10 pain that her describes as burning and throbbing. No pain upon palpation of abdomen and pt denies any SOB and chest pain. Pt also reports having intermittent nausea and has not eaten anything but a milk shake for several days. 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
[2023-01-19 11:51] LABS: COVID-19 CEPHEID 4-PLEX PCR Negative (Negative); Influenza A - CEPHEID Flu A NEGATIVE (NEGATIVE); Influenza B - CEPHEID Flu B NEGATIVE (NEGATIVE); Respiratory Syncytial Virus Negative (Negative)
[2023-01-19 12:31] LABS: Reflexed Lactate in 2 Hours Y
[2023-01-19 12:59] LABS: Appearance Urine UA CLEAR; Bilirubin Urine UA NEGATIVE (NEGATIVE); Color Urine UA YELLOW; Glucose Urine UA NEGATIVE (Negative); Ketones Urine UA NEGATIVE (NEGATIVE); Leukocyte Esterase Urine UA NEGATIVE (NEGATIVE); Nitrite Urine UA NEGATIVE (Negative); Occult Blood Urine UA NEGATIVE (Negative); Protein Urine UA NEGATIVE (Negative); Specific Gravity Urine UA 1.015 (1.000-1.035); Urobilinogen Urine UA 0.2 E.U./dL (0.2); pH Urine UA 6.5 (4.5-8.0)
[2023-01-19 13:10] LABS: Amorphous Sediment Urine 1+; Bacteria Urine Few (2-10); RBC Urine 1-5/HPF (0-5/HPF); Squamous Epithelial Cell Urine 1-5 /HPF (0-5/HPF); WBC Urine 1-5/HPF (0-5/HPF)
[2023-01-19 13:11] LABS: Culture Indicated Urine Cult Not Indicated
[2023-01-19] MEDS: SODIUM CHLORIDE 0.9% 1,000 ML 100 ML IV (13:55)
[2023-01-19 14:08] LABS: BUN Creatinine Ratio 74.1 (6-22); Blood Urea Nitrogen 83 mg/dL (9-20); Calcium 10.8 mg/dL (8.4-10.2); Carbon Dioxide 32 mmol/L (22-32); Chloride 104 mmol/L (98-107); Estimated Glomerular Filt Rate > 60 mL/min (>60); Glucose 143 mg/dL (80-110); HEMOLYSIS 15 (0-50); Potassium 4.2 mmol/L (3.4-5.1); Sodium 137 mmol/L (137-145)
[2023-01-19] MEDS: BACLOFEN 10 MG TABLET PO ×2 (14:29→21:19)
--- NOTE | 2023-01-19 14:56 | DI.CT.S_ITS ---
PROCEDURE: CT ABDOMEN PELVIS W CON INDICATIONS: intractable hiccups, bloating, melena r/o abd mass TECHNIQUE: After the administration of oral and IV contrast, axial sections were acquired from the lung bases to the pubic symphysis. Coronal and sagittal reformats were performed. For radiation dose reduction, the following was used: automated exposure control, adjustment of mA and/or kV according to patient size. COMPARISON: None. FINDINGS: Image quality: Excellent. Lung bases: Small wedge-shaped scar posteriorly left lung base. No pleural effusion. The distal esophagus and demonstrates prominent circumferential wall thickening and edema as well as a small hiatal hernia. Mild mural enhancement at the GE junction. There is a calcified and noncalcified right infrahilar lymph node which are borderline enlarged. Heart: Normal size heart. Aortic valvular calcification. ABDOMEN: Liver: No masses. Gallbladder: Decompressed. Biliary ducts: Nondilated. Pancreas: Normal. Spleen: Normal size. Several small round granulomatous calcifications. Adrenal Glands: No nodules. Kidneys and Ureters: Nonobstructing left lower pole nephrolithiasis. No hydronephrosis. Symmetric renal enhancement. Stomach and Bowel: Significant colonic diverticulosis of the sigmoid and to lesser extent descending colon. No definite colonic mass. No small bowel obstruction. Distal stomach is normal. Peritoneum: No abnormal intraperitoneal fluid. No free air. Ventral Wall: No hernia. Abdominal Nodes: No retroperitoneal or mesenteric adenopathy by size criteria. Vessels: Aorta and inferior vena cava are normal in size. Mild abdominal aortic atherosclerotic calcification. PELVIS: Pelvic Organs: Moderate prostatomegaly. Bladder: Normal. Pelvic Nodes: No enlarged lymph nodes. Miscellaneous: No inguinal hernias are seen. Bones: Degenerative sclerotic and spurring of the endplates and facet sclerosis in the lumbar spine. No suspicious bone lesions. IMPRESSION: 1. Circumferential distal esophageal wall thickening is nonspecific but can be seen and the setting of esophagitis or carcinoma. Endoscopy if not performed recently is recommended. 2. Prominent sigmoid colon diverticulosis without acute diverticulitis. This may be a source of rectal bleeding. 3. No adenopathy or suspicious mass to suggest metastatic disease. Dictated by: Светлана Ward M.D. on 01/19/2023 at 17:25 Approved by: Светлана Ward M.D. on 01/19/2023 at 17:33
--- NOTE | 2023-01-19 15:00 | PM.HP.1 ---
History of Present Illness History of Present Illness Date Patient Seen: 01/19/23 Time Patient Seen: 15:00 Chief complaint: DR sonal extreme pain since Sat morning Narrative: This is an 82 year old male with PMH of paroxysmal afib, HTN, HLD, BPH, remote lung ca s/p lobectomy who presented to the emergency room with abdominal pain and mainly intractable hiccups. Patient reports ongoing abdominal bloating, intermittent fever, and hiccups for the last week. Fevers reported as high as 102. Per PCP notes, he had similar symptoms in 2020 and was referred to hematology given leukocytosis, but workup was unremarkable. He denies cough, shortness of breath, chest pain, LE edema, weight changes except for the last few days. He reports worsening of his symptoms over the last two days, once leading to NBNB emesis a few days ago. In the emergency room, he was initially tachycardic and mildly hypotensive with MAP 69, he improved with IV fluids. Chemistries were notable for a calcium of 12.9, improved on repeat to 10.8. He does take HCTZ for HTN normally. UA was unremarkable. Respiratory flu,covid,rsv was negative. I called surgery, given his Hg of 14 at this time would recommend outpatient endoscopy, continue PPI, but may need endoscopy depending on h/h trend. FORMERLY [facility] Medical History Prediabetes Neuroforaminal stenosis of lumbar spine Spinal stenosis of lumbar region Foot drop, left Aortic stenosis Colon polyps Paroxysmal atrial fibrillation Hayfever (1995) Rheumatic fever (1956) Measles (1954) Chicken pox (1954) Hemorrhoids (2003) Hypertension (1995) Low testosterone in male Lung cancer (2002) BPH (benign prostatic hyperplasia) (2003) Surgical History Anesthesia History of prostate surgery (2005) Status post partial lobectomy of lung (2002) Family History Brother Age: 76 Leukemia in remission Mother Heart disease Father Stroke Sister No problems noted. Sister No problems noted. Social History household members: spouse and family Smoking Status: Former smoker alcohol intake: never Meds Home Medications and Allergies Home Medications Medication Instructions Recorded Confirmed Type MULTIVITAMIN (#MULTIPLE VITAMINS) 1 cap PO Q DAY ##0 09/19/10 01/19/23 History psyllium husk 0.52 gram capsule 0.52 gm PO Q DAY ##0 09/19/10 01/19/23 History (Metamucil) hydrochlorothiazide 12.5 mg tablet See Rx Instructions .Route 03/31/22 01/19/23 Rx .COMPLEX #90 tabs tadalafil 5 mg tablet 5 mg PO DAILY #90 tabs 04/24/22 01/19/23 Rx tadalafil 20 mg tablet 20 mg PO DAILY PRN sexual activity 05/05/22 01/19/23 Rx #100 tabs aspirin 81 mg tablet,delayed 81 mg PO DAILY 07/14/22 01/19/23 History release (Adult Aspirin Regimen) tamsulosin 0.4 mg capsule See Rx Instructions .Route 08/28/22 01/19/23 Rx .COMPLEX #180 caps trazodone 50 mg tablet See Rx Instructions .Route 08/28/22 01/19/23 Rx .COMPLEX #180 tabs testosterone 50 mg/5 gram (1 %) 2 tube topical DAILY muscular 09/18/22 01/19/23 Rx transdermal gel (Testim) atrophy #900 grams lisinopril 40 mg tablet See Rx Instructions .Route 12/04/22 01/19/23 Rx .COMPLEX #90 tabs simvastatin 20 mg tablet See Rx Instructions .Route 12/04/22 01/19/23 Rx .COMPLEX #90 tabs Allergies Allergy/AdvReac Type Severity Reaction Status Date / Time No Known Drug Allergies Allergy Verified 01/19/23 10:21 Review of Systems Review of Systems Narrative: All other systems reviewed with the patient and are negative unless otherwise stated. Exam Vital Signs (past 8 hours): - 01/19/23 10:12 01/19/23 10:56 01/19/23 10:57 Temperature 98.9 F Pulse Rate 120 H 89 90 Respiratory Rate 18 22 Blood Pressure 94/56 L Pulse Oximetry 98 93 97 Oxygen Delivery Method Room Air Oxygen Flow Rate 01/19/23 10:57 01/19/23 11:00 01/19/23 11:29 Temperature Pulse Rate 92 H 80 Respiratory Rate 27 H 13 Blood Pressure 129/76 Pulse Oximetry 98 95 Oxygen Delivery Method Oxygen Flow Rate 01/19/23 11:29 01/19/23 11:30 01/19/23 11:30 Temperature Pulse Rate 81 Respiratory Rate 17 Blood Pressure 138/74 137/72 Pulse Oximetry 96 Oxygen Delivery Method Oxygen Flow Rate 01/19/23 12:00 01/19/23 12:00 01/19/23 12:30 Temperature Pulse Rate 90 95 H Respiratory Rate 17 25 H Blood Pressure 130/69 Pulse Oximetry 95 97 Oxygen Delivery Method Oxygen Flow Rate 01/19/23 12:30 01/19/23 13:09 01/19/23 14:41 Temperature 98.9 F Pulse Rate 96 H Respiratory Rate 18 Blood Pressure 145/76 H 121/70 Pulse Oximetry 95 Oxygen Delivery Method Room Air Oxygen Flow Rate 0 Oxygen Delivery Method Room Air Oxygen Flow Rate 0 Narrative Exam Narrative: General:? Patient is well developed and well nourished, in no distress at this time. HEENT:? Normocephalic, atraumatic, extraocular muscles intact, oral pharynx is clear and mucous membranes are moist. Neck: supple and symmetric, trachea is midline, no cervical adenopathy. Negative for JVD Chest:? Normal AP diameter and contour without kyphoscoliosis, no tachypnea, equal chest rise bilaterally. Lungs:? CTA b/l no wheezing rhonchi or rales. Cardio:?RRR no m/r/g. Abdomen: S NT ND. No CVA tenderness. Musculoskeletal:? Muscle strength and tone are equal within normal limits, no deformity. Extremities: No edema or joint effusions. No cyanosis or clubbing. Skin:? Pale,? Warm to touch,dry and intact without rashes, ulcerations or petechiae.? Neuro:? Alert and orientated x3,? sensation to touch intact in all extremities, no gross deficits noted of cranial nerves. Psych:? Patient has a well-kept appearance, appropriate affect, mental status attitude thought context and judgment are appropriate for age. Objective ECG Impression: NSR, no acute ischemia, similar to previous tracings. Labs 01/19/23 10:30 01/19/23 13:50 Labs: Laboratory Results - last 24 hr 01/19/23 01/19/23 01/19/23 10:25 10:30 12:40 WBC 16.8 H RBC 4.51 Hgb 14.5 Hct 42.7 MCV 94.7 MCH 32.1 MCHC 33.9 RDW 14.1 Plt Count 156 Neut % (Auto) 81.2 H Lymph % (Auto) 8.9 L [place] % (Auto) 9.6 Eos % (Auto) 0.0 L Baso % (Auto) 0.3 Neut # (Auto) 88330 H Lymph # (Auto) 1500 [place] # (Auto) 1600 H Eos # (Auto) 0 Baso # (Auto) 100 PT 12.3 INR 1.1 APTT 23 L Sodium 137 Potassium 4.5 Chloride 99 Carbon Dioxide 30 BUN 88 H Creatinine 1.03 Estimated GFR > 60 BUN/Creatinine Ratio 85.4 H Glucose 193 H Lactate 2.6 H 2.0 Calcium 12.9 H* Total Bilirubin 0.6 AST 34 ALT 23 Alkaline Phosphatase 41 Total Creatine Kinase 97 Troponin I 0.034 Total Protein 6.9 Albumin 4.0 Globulin 2.9 Albumin/Globulin Ratio 1.4 Lipase 75 Urine Color Yellow Urine Appearance Clear Urine pH 6.5 Ur Specific [place] 1.015 Urine Protein Negative Urine Glucose (UA) Negative Urine Ketones Negative Urine Occult Blood Negative Urine Nitrate Negative Urine Bilirubin Negative Urine Urobilinogen 0.2 Ur Leukocyte Esterase Negative Urine RBC 1-5/hpf Urine WBC 1-5/hpf Ur Squamous Epith Cells 1-5 /hpf Amorphous Sediment 1+ Urine Bacteria Few (2-10) H Ur Culture Indicated? Cult not indicated SARS-CoV-2 (PCR) Negative Influenza A (RT-PCR) Flu a negative Influenza B (RT-PCR) Flu b negative RSV (PCR) Negative Blood Type O Positive Antibody Screen Negative 01/19/23 13:50 WBC RBC Hgb Hct MCV MCH MCHC RDW Plt Count Neut % (Auto) Lymph % (Auto) [place] % (Auto) Eos % (Auto) Baso % (Auto) Neut # (Auto) Lymph # (Auto) [place] # (Auto) Eos # (Auto) Baso # (Auto) PT INR APTT Sodium 137 Potassium 4.2 Chloride 104 Carbon Dioxide 32 BUN 83 H Creatinine 1.12 Estimated GFR > 60 BUN/Creatinine Ratio 74.1 H Glucose 143 H Lactate Calcium 10.8 H Total Bilirubin AST ALT Alkaline Phosphatase Total Creatine Kinase Troponin I Total Protein Albumin Globulin Albumin/Globulin Ratio Lipase Urine Color Urine Appearance Urine pH Ur Specific [place] Urine Protein Urine Glucose (UA) Urine Ketones Urine Occult Blood Urine Nitrate Urine Bilirubin Urine Urobilinogen Ur Leukocyte Esterase Urine RBC Urine WBC Ur Squamous Epith Cells Amorphous Sediment Urine Bacteria Ur Culture Indicated? SARS-CoV-2 (PCR) Influenza A (RT-PCR) Influenza B (RT-PCR) RSV (PCR) Blood Type Antibody Screen Assessment & Plan Assessment & Plan narrative: 1. Intractable hiccups - will check CT to rule out overt mass leading to symptoms given months of bloating, vague symptoms. - suspect peptic ulcer disease and GERD - continue IV PPI BID, trial baclofen, then gabapentin if ineffective. - Continue to follow h/h after discussion with surgery, if stable can have outpatient endoscopy. 2. Hypercalcemia - likely due to dehydration due to above and HCTZ use, improved with fluids. Continue to follow with BMP q12 until normal. - stop HCTZ - continue IV fluids overnight with NS at 100 cc per hour. Okay to stop when calcium is <10.5 3. Suspected peptic ulcer, melena - continue IV PPI BID - discussed with surgery as above, okay for outpatient EGD if h/h stable and normal CT. - Hg is 14.5 but patient typically is 16-17 as an outpatient, will continue to trend. 4. Fever, leukocytosis - will order a blood culture, had unremarkable evaluation with hematology in 2020. Unclear etiology. CT abdomen/pelvis ordered. UA unremarkable, no cough or symptoms of PNA. 5. HTN - hold HCTZ, and lisinopril for now. Restart. 6. Paroxysmal atrail fibrillation - hold home asa for now Code: Full, surrogate is patient's spouse DVT: SCDs I have utilized all available immediate resources to obtain, update, or review the patient's current medications. Dispo: admitted observation for hypercalcemia without significant neurological symptoms, pending above evaluation for contributing factors. Additional history obtained from spouse, and ER provider. Discussed management with surgeon as noted above. I have reviewed patient's outpatient documentation, labs, imaging and EKG personally. Quality VTE Deep Vein Thrombosis/Pulmonary Embolism Present on Admission: No
[2023-01-19] MEDS: GABAPENTIN 300 MG CAPSULE PO ×2 (16:17→21:19)
[2023-01-19 19:38] LABS: MRSA (Nasal) PCR Not Detected (Not Detect)
[2023-01-19 20:40] LABS: Hematocrit 36.5 % (41-53); Hemoglobin 12.2 g/dL (13.5-17.5)
[2023-01-19] MEDS: PANTOPRAZOLE 40 MG VIAL IV (21:19)
[2023-01-20] VITALS (36 sets, daily range): BP systolic 116–135; BP diastolic 60–78; PULSE 73–101; RESP 7–35; TEMP 36.4–36.9; O2SAT 92–99
[2023-01-20] MEDS: SODIUM CHLORIDE 0.9% 1,000 ML 100 ML IV (00:27)
[2023-01-20 05:12] LABS: Add Manual Diff / Slide Review NO; Basophils Absolute Auto 0 /uL (0-100); Basophils Percent Auto 0.1 % (0-2); Eosinophils Absolute Auto 100 /uL (0-450); Eosinophils Percent Auto 0.5 % (2-4); Hematocrit 33.5 % (41-53); Hemoglobin 11.3 g/dL (13.5-17.5); Lymphocytes Absolute Auto 1400 /uL (1100-4500); Lymphocytes Percent Auto 12.9 % (25-40); Mean Corpuscular HGB Conc 33.7 % (30-36); Mean Corpuscular Hemoglobin 31.9 PG (26-34); Mean Corpuscular Volume 94.5 fL (80-100); Monocytes Absolute Auto 1200 /uL (0-900); Monocytes Percent Auto 11.1 % (3-14); Neutrophils Absolute Auto 8000 /uL (1500-7000); Neutrophils Percent Auto 75.4 % (50-75); Platelet Count 137 X10^3/uL (150-400); Red Blood Cell Count 3.54 X10^6/uL (4.5-5.9); Red Cell Distribution Width 13.6 % (11.6-14.8); White Blood Cell Count 10.6 X10^3/uL (4.5-11.0)
[2023-01-20 05:19] LABS: Blood Urea Nitrogen 57 mg/dL (9-20); Calcium 9.7 mg/dL (8.4-10.2); Carbon Dioxide 29 mmol/L (22-32); Chloride 107 mmol/L (98-107); Estimated Glomerular Filt Rate > 60 mL/min (>60); Glucose 90 mg/dL (80-110); HEMOLYSIS < 15 (0-50); Magnesium 1.7 mg/dL (1.6-2.3); Potassium 4.2 mmol/L (3.4-5.1); Sodium 139 mmol/L (137-145)
[2023-01-20] MEDS: PANTOPRAZOLE 40 MG VIAL IV ×2 (08:08→20:23)
[2023-01-20] MEDS: GABAPENTIN 300 MG CAPSULE PO ×3 (08:08→20:23)
[2023-01-20] MEDS: BACLOFEN 10 MG TABLET PO ×3 (08:08→20:23)
[2023-01-20] MEDS: MAGNESIUM CHLORIDE 64 MG TABLET 128 MG PO (08:08)
--- NOTE | 2023-01-20 09:15 | P.PN_ITS ---
Subjective Subjective Interval history: 82 year old male admitted with hypercalcemia and hiccups. Hypercalcemia resolved with fluids and holding HCTZ. h/h continues to downtrend. He still has near constant hiccuping. CT without obvious mass, but shows stomach and esophageal thickening. Discussed again with surgery given h/h decline, will proceed with endoscopy tomorrow. Exam Vital Signs (past 8 hours): - 01/20/23 04:00 01/20/23 05:00 01/20/23 07:53 Temperature 97.6 F Pulse Rate 94 H Respiratory Rate 18 Blood Pressure 118/65 Pulse Oximetry 95 94 99 Oxygen Delivery Method Room Air Nasal Cannula Oxygen Flow Rate 0 1 01/20/23 08:00 01/20/23 08:00 Temperature Pulse Rate 101 H Respiratory Rate 18 Blood Pressure 118/77 Pulse Oximetry 98 Oxygen Delivery Method Room Air Oxygen Flow Rate 2 Oxygen Delivery Method Room Air Oxygen Flow Rate 2 Narrative Exam Narrative: General:? Patient is well developed and well nourished, in no distress at this time. HEENT:? Normocephalic, atraumatic, extraocular muscles intact, oral pharynx is clear and mucous membranes are moist. Neck: supple and symmetric, trachea is midline, no cervical adenopathy. Negative for JVD Chest:? Normal AP diameter and contour without kyphoscoliosis, no tachypnea, equal chest rise bilaterally. Lungs:? CTA b/l no wheezing rhonchi or rales. Cardio:?RRR no m/r/g. Abdomen: S NT ND. No CVA tenderness. Musculoskeletal:? Muscle strength and tone are equal within normal limits, no deformity. Extremities: No edema or joint effusions. No cyanosis or clubbing. Skin:? Pale,? Warm to touch,dry and intact without rashes, ulcerations or petechiae.? Neuro:? Alert and orientated x3,? sensation to touch intact in all extremities, no gross deficits noted of cranial nerves. Psych:? Patient has a well-kept appearance, appropriate affect, mental status attitude thought context and judgment are appropriate for age. Objective Labs 01/20/23 04:10 01/20/23 04:10 Labs: Laboratory Results - last 24 hr 01/19/23 01/19/23 01/19/23 10:25 10:30 12:40 WBC 16.8 H RBC 4.51 Hgb 14.5 Hct 42.7 MCV 94.7 MCH 32.1 MCHC 33.9 RDW 14.1 Plt Count 156 Neut % (Auto) 81.2 H Lymph % (Auto) 8.9 L [place] % (Auto) 9.6 Eos % (Auto) 0.0 L Baso % (Auto) 0.3 Neut # (Auto) 09250 H Lymph # (Auto) 1500 [place] # (Auto) 1600 H Eos # (Auto) 0 Baso # (Auto) 100 PT 12.3 INR 1.1 APTT 23 L Sodium 137 Potassium 4.5 Chloride 99 Carbon Dioxide 30 BUN 88 H Creatinine 1.03 Estimated GFR > 60 BUN/Creatinine Ratio 85.4 H Glucose 193 H Lactate 2.6 H 2.0 Calcium 12.9 H* Magnesium Total Bilirubin 0.6 AST 34 ALT 23 Alkaline Phosphatase 41 Total Creatine Kinase 97 Troponin I 0.034 Total Protein 6.9 Albumin 4.0 Globulin 2.9 Albumin/Globulin Ratio 1.4 Lipase 75 Urine Color Yellow Urine Appearance Clear Urine pH 6.5 Ur Specific [place] 1.015 Urine Protein Negative Urine Glucose (UA) Negative Urine Ketones Negative Urine Occult Blood Negative Urine Nitrate Negative Urine Bilirubin Negative Urine Urobilinogen 0.2 Ur Leukocyte Esterase Negative Urine RBC 1-5/hpf Urine WBC 1-5/hpf Ur Squamous Epith Cells 1-5 /hpf Amorphous Sediment 1+ Urine Bacteria Few (2-10) H Ur Culture Indicated? Cult not indicated Nasal Screen MRSA (PCR) SARS-CoV-2 (PCR) Negative Influenza A (RT-PCR) Flu a negative Influenza B (RT-PCR) Flu b negative RSV (PCR) Negative Blood Type O Positive Antibody Screen Negative 01/19/23 01/19/23 01/19/23 13:50 15:09 20:32 WBC RBC Hgb 12.2 L Hct 36.5 L MCV MCH MCHC RDW Plt Count Neut % (Auto) Lymph % (Auto) [place] % (Auto) Eos % (Auto) Baso % (Auto) Neut # (Auto) Lymph # (Auto) [place] # (Auto) Eos # (Auto) Baso # (Auto) PT INR APTT Sodium 137 Potassium 4.2 Chloride 104 Carbon Dioxide 32 BUN 83 H Creatinine 1.12 Estimated GFR > 60 BUN/Creatinine Ratio 74.1 H Glucose 143 H Lactate Calcium 10.8 H Magnesium Total Bilirubin AST ALT Alkaline Phosphatase Total Creatine Kinase Troponin I Total Protein Albumin Globulin Albumin/Globulin Ratio Lipase Urine Color Urine Appearance Urine pH Ur Specific [place] Urine Protein Urine Glucose (UA) Urine Ketones Urine Occult Blood Urine Nitrate Urine Bilirubin Urine Urobilinogen Ur Leukocyte Esterase Urine RBC Urine WBC Ur Squamous Epith Cells Amorphous Sediment Urine Bacteria Ur Culture Indicated? Nasal Screen MRSA (PCR) Not detected SARS-CoV-2 (PCR) Influenza A (RT-PCR) Influenza B (RT-PCR) RSV (PCR) Blood Type Antibody Screen 01/20/23 04:10 WBC 10.6 RBC 3.54 L Hgb 11.3 L Hct 33.5 L MCV 94.5 MCH 31.9 MCHC 33.7 RDW 13.6 Plt Count 137 L Neut % (Auto) 75.4 H Lymph % (Auto) 12.9 L [place] % (Auto) 11.1 Eos % (Auto) 0.5 L Baso % (Auto) 0.1 Neut # (Auto) 8000 H Lymph # (Auto) 1400 [place] # (Auto) 1200 H Eos # (Auto) 100 Baso # (Auto) 0 PT INR APTT Sodium 139 Potassium 4.2 Chloride 107 Carbon Dioxide 29 BUN 57 H Creatinine 0.95 Estimated GFR > 60 BUN/Creatinine Ratio 60.0 H Glucose 90 Lactate Calcium 9.7 Magnesium 1.7 Total Bilirubin AST ALT Alkaline Phosphatase Total Creatine Kinase Troponin I Total Protein Albumin Globulin Albumin/Globulin Ratio Lipase Urine Color Urine Appearance Urine pH Ur Specific [place] Urine Protein Urine Glucose (UA) Urine Ketones Urine Occult Blood Urine Nitrate Urine Bilirubin Urine Urobilinogen Ur Leukocyte Esterase Urine RBC Urine WBC Ur Squamous Epith Cells Amorphous Sediment Urine Bacteria Ur Culture Indicated? Nasal Screen MRSA (PCR) SARS-CoV-2 (PCR) Influenza A (RT-PCR) Influenza B (RT-PCR) RSV (PCR) Blood Type Antibody Screen REPLACED BY [facility] Medical History Prediabetes Neuroforaminal stenosis of lumbar spine Spinal stenosis of lumbar region Foot drop, left Aortic stenosis Colon polyps Paroxysmal atrial fibrillation Hayfever (1995) Rheumatic fever (1956) Measles (1954) Chicken pox (1954) Hemorrhoids (2003) Hypertension (1995) Low testosterone in male Lung cancer (2002) BPH (benign prostatic hyperplasia) (2003) Surgical History Anesthesia History of prostate surgery (2005) Status post partial lobectomy of lung (2002) Family History Brother Age: 76 Leukemia in remission Mother Heart disease Father Stroke Sister No problems noted. Sister No problems noted. Social History household members: spouse and family Smoking Status: Former smoker alcohol intake: never Assessment & Plan Assessment & Plan narrative: 1. Intractable hiccups - these are secondary to his gastic and esophageal wall thickening and likely GERD, possible PUD with continued melena. - continue IV PPI BID, baclofen, and gabapentin today - EGD planned for tomorrow. 2. Hypercalcemia - likely due to dehydration due to above and HCTZ use, improved with fluids. Continue to follow with BMP q12 until normal. - stop HCTZ - continue IV fluids overnight with NS at 100 cc per hour. Okay to stop when calcium is <10.5 3. Suspected peptic ulcer, melena - continue IV PPI BID - discussed with surgery as above, EGD planned for tomorrow. - Hg 14.5 on admit, but patient typically is 16-17 as an outpatient. Worsened to 11.2 today with melenotic stool overnight. 4. Fever, leukocytosis - f/u blood culture, had unremarkable evaluation with hematology in 2020. Unclear etiology but now improved today. CT abdomen/pelvis without a source. UA unremarkable, no cough or symptoms of PNA. 5. HTN - hold HCTZ, and lisinopril for now. Restart if hypertensive, with lisinopril 1st. 6. Paroxysmal atrail fibrillation - hold home asa for now 7. Chronic thrombocytopenia - continue to monitor. Code: Full, surrogate is patient's spouse DVT: SCDs I have utilized all available immediate resources to obtain, update, or review the patient's current medications. Dispo: inpatient today, plan for EGD tomorrow, can discharge tomorrow if h/h stable. Educated patient that hiccups will likely take weeks or even longer to resolve. Additional history obtained from spouse, and ER provider. Discussed management with surgeon as noted above. I have reviewed patient's outpatient documentation, labs, imaging and EKG personally. Quality VTE Deep Vein Thrombosis/Pulmonary Embolism Present on Admission: No
--- NOTE | 2023-01-20 12:17 | PM.CALLCOV.1 ---
Call Coverage Note Note Date of Patient Contact: 01/20/23 Narrative of Care Provided: EGD on Thursday. CT scan reviewed
[2023-01-20 12:47] LABS: Hematocrit 34.2 % (41-53); Hemoglobin 11.5 g/dL (13.5-17.5)
[2023-01-20 18:28] LABS: Hematocrit 35.9 % (41-53); Hemoglobin 12.1 g/dL (13.5-17.5)
--- NOTE | 2023-01-20 18:30 | CM.DPNOTE ---
DCP Note MANAGER PROTEIN reviewed EMR. Patient is an 82yo M here following hyprecalcemia and hiccups. PCP Keith Galindo payer Medicare and [employer]. MANAGER PROTEIN unable to meet with patient today due to triaging needs. Per provider note, due to h/h decline patient will get endoscopy tomorrow to investigate potential ulcer. Per provider note, can d/c tomorrow home if h/h stable. Per chart review, patient lives at home with spouse Juany ([phone]). Plan: CM team will continue to follow closely. No needs identified at this time. Likely home when medically stable with spouse. MIGUEL Hancock
[2023-01-21] VITALS (23 sets, daily range): BP systolic 114–145; BP diastolic 71–86; PULSE 67–95; RESP 12–21; TEMP 36.1–37.3; O2SAT 93–99; BMI 27.0
--- NOTE | 2023-01-21 | PATH_ITS ---
Note [facility] Accession Number: [id number] TESTS RESULT FLAG UNITS REF RANGE LAB Clinician Provided Cytology Information No. of containers..01 Other (Miscellaneous) Source: ESOPHAGUS TISSUE DIAGNOSIS: ESOPHAGUS TISSUE NEGATIVE FOR MALIGNANT CELLS. SCANT SQUAMOUS CELLS, FEW LEUKOCYTES, AND ACELLULAR DEBRIS. Pathologist ICD10: Z.00 Signed out by: Wandy Sanford MD, Pathologist NPI- [id number] Performed by: Gerry Beal, Software Reliability Engineer ([facility]) Gross description: 01 RECEIVED SMALL BRUSH IN ORANGE CAP CONTAINER. NO LIQUID IN CONTAINER. ADDED CYTOLYT. VALENCIA /EVON 01/22/2023 1349 Local FLAG LEGEND: L-Low Normal,H-High Normal,LL-Alert Low,HH-Alert High <-Panic Low,>-Panic High,A-Abnormal,AA-Critical Abnormal Performed at: 01 =[facility] [address], [place] [address] Sandeep Roldan MD, Specimen Comment: A duplicate report has been generated due to demographic updates. Performed at: 01 [facility] [address], [place], [place] [id number] MD Sandeep Roldan MD Phone: [phone]
[2023-01-21 04:56] LABS: BUN Creatinine Ratio 43.2 (6-22); Blood Urea Nitrogen 38 mg/dL (9-20); Carbon Dioxide 27 mmol/L (22-32); Chloride 107 mmol/L (98-107); Estimated Glomerular Filt Rate > 60 mL/min (>60); Glucose 106 mg/dL (80-110); HEMOLYSIS < 15 (0-50); Magnesium 1.9 mg/dL (1.6-2.3); Potassium 4.1 mmol/L (3.4-5.1); Sodium 138 mmol/L (137-145)
[2023-01-21 04:57] LABS: Add Manual Diff / Slide Review NO; Basophils Absolute Auto 0 /uL (0-100); Basophils Percent Auto 0.1 % (0-2); Eosinophils Absolute Auto 200 /uL (0-450); Eosinophils Percent Auto 2.2 % (2-4); Hematocrit 33.1 % (41-53); Lymphocytes Absolute Auto 1600 /uL (1100-4500); Lymphocytes Percent Auto 19.5 % (25-40); Mean Corpuscular HGB Conc 33.3 % (30-36); Mean Corpuscular Hemoglobin 31.9 PG (26-34); Mean Corpuscular Volume 95.8 fL (80-100); Monocytes Absolute Auto 900 /uL (0-900); Monocytes Percent Auto 10.8 % (3-14); Neutrophils Absolute Auto 5600 /uL (1500-7000); Neutrophils Percent Auto 67.4 % (50-75); Platelet Count 150 X10^3/uL (150-400); Red Blood Cell Count 3.45 X10^6/uL (4.5-5.9); Red Cell Distribution Width 13.4 % (11.6-14.8); White Blood Cell Count 8.3 X10^3/uL (4.5-11.0)
--- NOTE | 2023-01-21 07:56 | PC.NURSE ---
Addendum entered by Serena Reed R.N. 01/21/23 16:22: Pt met discharge criteria, Pt VSS at time of discharge Addendum entered by Serena Reed R.N. 01/21/23 15:12: Pt returned from EGD around 1355 - VSS and RN monitoring post-op VS. Pt had medium sized black bowel movement. RN tested bowel movement and it was positive for occult blood. Provider notified. Pt tolerated clear liquids (broth, water and persian ice) - relayed to provider and requested full liquid diet for dinner. Addendum entered by Serena Reed R.N. 01/21/23 12:16: Communicated with provider about pt's own eye drops. RN added eye drops to MAR and provider ordered eye drops. Also pt complained to RN about constipation, pt takes fiber at home, RN relayed information to provider and provider will order bowel meds when return from EGD. 1130- Pt left for EGD, prior to leaving VSS, NSR. Original Note: Pt had very small bowel movement in toilet, RN noted the stool to look very dark but was unable to perform FOBT. RN asked pt if he has another bowel movement to pass it in the hat for RN to perform FOBT and assess further.
[2023-01-21] MEDS: GABAPENTIN 300 MG CAPSULE PO ×2 (08:18→14:13)
[2023-01-21] MEDS: PANTOPRAZOLE 40 MG VIAL IV (08:18)
[2023-01-21] MEDS: BACLOFEN 10 MG TABLET PO ×2 (08:18→14:13)
[2023-01-21] MEDS: TAMSULOSIN 0.4 MG CAPSULE 0.8 MG PO (09:16)
--- NOTE | 2023-01-21 12:52 | P.CONS_ITS ---
History of Present Illness Consult details Date Patient Seen: 01/21/23 Time Patient Seen: 12:52 Chief complaint: DR sent extreme pain since Sat morning Reason for consult: abnormal CT scan, anemia Requesting provider: David Hernandez Narrative: Pain and anemia, CT scan showing thickened esophagus and stomach. Meds Home Medications and Allergies Home Medications Medication Instructions Recorded Confirmed Type MULTIVITAMIN (#MULTIPLE VITAMINS) 1 cap PO Q DAY ##0 09/19/10 01/19/23 History psyllium husk 0.52 gram capsule 0.52 gm PO Q DAY ##0 09/19/10 01/19/23 History (Metamucil) hydrochlorothiazide 12.5 mg tablet See Rx Instructions .Route 03/31/22 01/19/23 Rx .COMPLEX #90 tabs tadalafil 5 mg tablet 5 mg PO DAILY #90 tabs 04/24/22 01/19/23 Rx tadalafil 20 mg tablet 20 mg PO DAILY PRN sexual activity 05/05/22 01/19/23 Rx #100 tabs aspirin 81 mg tablet,delayed 81 mg PO DAILY 07/14/22 01/19/23 History release (Adult Aspirin Regimen) tamsulosin 0.4 mg capsule See Rx Instructions .Route 08/28/22 01/19/23 Rx .COMPLEX #180 caps trazodone 50 mg tablet See Rx Instructions .Route 08/28/22 01/19/23 Rx .COMPLEX #180 tabs testosterone 50 mg/5 gram (1 %) 2 tube topical DAILY muscular 09/18/22 01/19/23 Rx transdermal gel (Testim) atrophy #900 grams lisinopril 40 mg tablet See Rx Instructions .Route 12/04/22 01/19/23 Rx .COMPLEX #90 tabs simvastatin 20 mg tablet See Rx Instructions .Route 12/04/22 01/19/23 Rx .COMPLEX #90 tabs latanoprost 0.005 % eye drops 1 drp ophthalmic (eye) QPM 01/21/23 01/21/23 History Allergies Allergy/AdvReac Type Severity Reaction Status Date / Time No Known Drug Allergies Allergy Verified 01/19/23 10:21 Review of Systems Review of Systems Narrative: spasms of upper abdomen, dark stools, episode of hemetmesis. ROS: Yes All systems reviewed with the patient and are negative except as otherwise documented Exam Vital Signs (past 8 hours): - 01/21/23 07:00 01/21/23 08:00 01/21/23 08:48 Temperature 98.4 F Pulse Rate 77 Respiratory Rate 18 Blood Pressure 129/85 Pulse Oximetry 96 96 Oxygen Delivery Method Room Air Room Air Oxygen Flow Rate 0 01/21/23 11:14 01/21/23 11:43 Temperature 97 F L 97.9 F Pulse Rate 75 83 Respiratory Rate 18 16 Blood Pressure 128/78 135/83 Pulse Oximetry 96 96 Oxygen Delivery Method Room Air Oxygen Flow Rate 0 Oxygen Delivery Method Room Air Oxygen Flow Rate 0 Const General: cooperative and well groomed Nutritional Appearance: average body habitus Orientation: alert, awake and oriented x3 HENMT Head: normocephalic and atraumatic Neck Neck: trachea midline and No anterior neck swelling Other: hoarse voice Chest Chest: normal inspection of the chest Cardio Rate: regular rate Rhythm: regular rhythm GI Inspection: normal to inspection and non-distended Palpation: soft Skin General: atrophy, crusts and dry skin Psych Appearance: grossly normal Mental Status: mental status grossly normal Judgment: judgment good Objective Labs 01/21/23 04:00 01/21/23 04:00 Labs: Laboratory Results - last 24 hr 01/20/23 01/20/23 01/21/23 12:25 18:00 04:00 WBC 8.3 RBC 3.45 L Hgb 11.5 L 12.1 L 11.0 L Hct 34.2 L 35.9 L 33.1 L MCV 95.8 MCH 31.9 MCHC 33.3 RDW 13.4 Plt Count 150 Neut % (Auto) 67.4 Lymph % (Auto) 19.5 L [place] % (Auto) 10.8 Eos % (Auto) 2.2 Baso % (Auto) 0.1 Neut # (Auto) 5600 Lymph # (Auto) 1600 [place] # (Auto) 900 Eos # (Auto) 200 Baso # (Auto) 0 Sodium 138 Potassium 4.1 Chloride 107 Carbon Dioxide 27 BUN 38 H Creatinine 0.88 Estimated GFR > 60 BUN/Creatinine Ratio 43.2 H Glucose 106 Calcium 9.0 Magnesium 1.9 [facility] Medical History Prediabetes Neuroforaminal stenosis of lumbar spine Spinal stenosis of lumbar region Foot drop, left Aortic stenosis Colon polyps Paroxysmal atrial fibrillation [place] (1995) Rheumatic fever (1956) Measles (1954) Chicken pox (1954) Hemorrhoids (2003) Hypertension (1995) Low testosterone in male Lung cancer (2002) BPH (benign prostatic hyperplasia) (2003) Surgical History Anesthesia History of prostate surgery (2005) Status post partial lobectomy of lung (2002) Family History Brother Age: 76 Leukemia in remission Mother Heart disease Father Stroke Sister No problems noted. Sister No problems noted. Social History household members: spouse and family Tobacco & Substance Use Smoking Status: Former smoker alcohol intake: never Assessment & Plan Assessment & Plan narrative: Anemia, hemetemesis, spasms of the upper abdomen. Abnormal CT with thickened esophagus and stomach. Plan: EGD with biopsy and brushing Time Spent With Patient Time with patient: less than 30 minutes
--- NOTE | 2023-01-21 13:15 | PM.OP.COLON ---
Operative Date/Time/Diagnoses Date of procedure: 01/21/23 Time of procedure: 13:16 Pre-op diagnosis: Abnormal CT of chest, anemia, hematemesis Post-op diagnosis: same Procedure & Clinicians Study performed: EGD with cold forceps biopsy for H pylori and pathology. Esophageal brushing for cytology and fungal Same procedure as scheduled: Yes Indications: Anemia hematemesis and thickened esophagus on CT scan Surgeon: Nara Pinon Procedure Notes Procedure in detail: Preop diagnosis: Hematemesis, anemia, abnormal chest CT Postop diagnosis: Same Operative procedure: EGD with gastric mucosal biopsy for pathology and H pylori. Esophageal brushing for cytology and fungal Surgeon: Sweetie Pinon MD Findings: Severe esophagitis likely fungal. Gastritis with hypertrophy of gastric mucosa but no overt ulcers. Procedure: Patient placed in a supine position. Anesthetic was provided. Scope was inserted into the esophagus and with direct visualization was introduced into the stomach. Insufflation, retroflex, and extraction of the scope had the above findings. Cold forceps biopsy of the gastric mucosa was done. Esophageal brushing was done. Impression: Severe esophagitis and gastritis, no ulcers. Mucosa very friable. Plan: Await results esophageal brushings and gastric mucosal biopsy. But in anticipation would continue on PPI b.i.d. as well as treatment for esophageal fungal infection Impression: Esophagitis and gastritis Post-procedure Follow up: as needed Disposition: PACU
--- NOTE | 2023-01-21 13:35 | SUR.PHASEI ---
Report called to Se[facility]. Clarified transfer order to acute care, not ICU per Dr. Pinon.
--- NOTE | 2023-01-21 13:45 | SUR.PHASEI ---
Patient transferred to the floor by JESSICA Leach.
--- NOTE | 2023-01-21 15:45 | PM.DS.1 ---
History of Present Illness History of Present Illness Date Patient Seen: 02/11/23 Time Patient Seen: 15:45 Chief complaint: DR sonal extreme pain since Sat morning Narrative: This is an 82 year old male with PMH of paroxysmal afib, HTN, HLD, BPH, remote lung ca s/p lobectomy who presented to the emergency room with abdominal pain and mainly intractable hiccups. Patient reports ongoing abdominal bloating, intermittent fever, and hiccups for the last week. Fevers reported as high as 102. Per PCP notes, he had similar symptoms in 2020 and was referred to hematology given leukocytosis, but workup was unremarkable. He denies cough, shortness of breath, chest pain, LE edema, weight changes except for the last few days. He reports worsening of his symptoms over the last two days, once leading to NBNB emesis a few days ago. In the emergency room, he was initially tachycardic and mildly hypotensive with MAP 69, he improved with IV fluids. Chemistries were notable for a calcium of 12.9, improved on repeat to 10.8. He does take HCTZ for HTN normally. UA was unremarkable. Respiratory flu,covid,rsv was negative. I called surgery, given his Hg of 14 at this time would recommend outpatient endoscopy, continue PPI, but may need endoscopy depending on h/h trend. Discharge Providers Provider Date of admission: 01/20/23 09:23 Discharge Date: 01/21/23 Primary care physician: Bill Galindo MD Consults: 01/20/23 09:17 Consult to General Surgery Routine Comment: Consulting Provider: Nara Pinon Reason for consultation: upper GI bleed Has provider been notified: Yes Discharge provider: David Hernandez DO Summary Hospital Course Discharge Diagnosis: 1. Intractable hiccups 2. Hypercalcemia, resolved 3. Acute blood loss anemia secondary to GERD with severe gastritis and esophagitis 4. Fever, leukocytosis, resolved 5. HTN 6. Paroxysmal atrail fibrillation 7. Chronic thrombocytopenia Hospital Course: This is an 82 year old male with PMH of HTN, paroxysmal atrial fibrillation, thrombocytopenia admitted with intractable hiccups and hypercalcemia. He reported recent melena as well after having stopped omeprazole for planned H pylori breath testing. Calcium levels improved with cessation of HCTZ and fluid administration to normal. HCTZ is recommended to stop to avoid hypercalcemia in the future. CT was performed for evaluation of his intractable hiccups, which showed diffuse gastric and esophageal thickening. With downtrending h/h and melena, surgery was consulted and performed EGD which showed no overr mass, but diffuse gastritis and esophagitis and likely esophageal candidiasis. Biopsies were taken and H pylori via pathology was sent as well. Patient was discharged on oral pantoprazole 40 mg BID which he should continue for at least one month. He was sent fluconazole for esohpageal candidiasis. He did report previous fever and leukocytosis, though no infection was found thus far and leukocytosis resolved. He had a prior unremarkable evaluation by hematology as well. For his hiccups he was started on not only PPI, but baclofen and gabapentin. Baclofen and gabapentin are recommended to be tapered off if symptoms are improving. At PCP follow up, check H pylori testing for possible treatment. Check on hiccups and oral intake. He may need another repeat EGD as well to monitor response to treatment. Time Spent with Patient Time spent: Greater than 30 minutes Exam Vital Signs (past 8 hours): - 01/21/23 08:00 01/21/23 08:05 01/21/23 08:05 Temperature 98.4 F Pulse Rate 77 Respiratory Rate 18 Blood Pressure 129/85 129/85 Pulse Oximetry 96 93 Oxygen Delivery Method Oxygen Flow Rate 0 01/21/23 08:40 01/21/23 08:48 01/21/23 11:11 Temperature Pulse Rate 84 67 Respiratory Rate Blood Pressure Pulse Oximetry 96 96 99 Oxygen Delivery Method Room Air Oxygen Flow Rate 01/21/23 11:12 01/21/23 11:12 01/21/23 11:14 Temperature 97 F L Pulse Rate 81 75 Respiratory Rate 18 Blood Pressure 128/78 128/78 Pulse Oximetry 96 96 Oxygen Delivery Method Oxygen Flow Rate 0 01/21/23 11:43 01/21/23 13:19 01/21/23 13:24 Temperature 97.9 F 98.6 F Pulse Rate 83 95 H 87 Respiratory Rate 16 20 16 Blood Pressure 135/83 114/86 119/81 Pulse Oximetry 96 93 93 Oxygen Delivery Method Room Air Room Air Room Air Oxygen Flow Rate 01/21/23 13:28 01/21/23 13:34 01/21/23 13:52 Temperature 98.2 F Pulse Rate 87 79 79 Respiratory Rate 21 12 Blood Pressure 128/86 129/82 Pulse Oximetry 94 95 95 Oxygen Delivery Method Room Air Room Air Oxygen Flow Rate 01/21/23 13:54 01/21/23 13:55 01/21/23 13:55 Temperature Pulse Rate 76 Respiratory Rate Blood Pressure 140/71 Pulse Oximetry 97 Oxygen Delivery Method Room Air Oxygen Flow Rate 01/21/23 14:00 01/21/23 14:30 01/21/23 14:30 Temperature 99.2 F 98.9 F Pulse Rate 79 83 Respiratory Rate 15 14 Blood Pressure 140/71 135/75 135/75 Pulse Oximetry 95 96 Oxygen Delivery Method Oxygen Flow Rate 01/21/23 14:32 Temperature Pulse Rate Respiratory Rate Blood Pressure Pulse Oximetry 95 Oxygen Delivery Method Oxygen Flow Rate Oxygen Delivery Method Room Air Oxygen Flow Rate 0 Const General: cooperative and well groomed Nutritional Appearance: average body habitus Orientation: alert, awake and oriented x3 HENMT Head: normocephalic and atraumatic Neck Neck: trachea midline and No anterior neck swelling Other: hoarse voice Chest Chest: normal inspection of the chest Cardio Rate: regular rate Rhythm: regular rhythm GI Inspection: normal to inspection and non-distended Palpation: soft Skin General: atrophy, crusts and dry skin Psych Appearance: grossly normal Mental Status: mental status grossly normal Judgment: judgment good Objective Labs 01/21/23 04:00 01/21/23 04:00 Labs: Laboratory Results - last 24 hr 01/20/23 01/21/23 18:00 04:00 WBC 8.3 RBC 3.45 L Hgb 12.1 L 11.0 L Hct 35.9 L 33.1 L MCV 95.8 MCH 31.9 MCHC 33.3 RDW 13.4 Plt Count 150 Neut % (Auto) 67.4 Lymph % (Auto) 19.5 L [place] % (Auto) 10.8 Eos % (Auto) 2.2 Baso % (Auto) 0.1 Neut # (Auto) 5600 Lymph # (Auto) 1600 [place] # (Auto) 900 Eos # (Auto) 200 Baso # (Auto) 0 Sodium 138 Potassium 4.1 Chloride 107 Carbon Dioxide 27 BUN 38 H Creatinine 0.88 Estimated GFR > 60 BUN/Creatinine Ratio 43.2 H Glucose 106 Calcium 9.0 Magnesium 1.9 PFSH Medical History Prediabetes Neuroforaminal stenosis of lumbar spine Spinal stenosis of lumbar region Foot drop, left Aortic stenosis Colon polyps Paroxysmal atrial fibrillation Hayfever (1995) Rheumatic fever (1956) Measles (1954) Chicken pox (1954) Hemorrhoids (2003) Hypertension (1995) Low testosterone in male Lung cancer (2002) BPH (benign prostatic hyperplasia) (2003) Surgical History Anesthesia History of prostate surgery (2005) Status post partial lobectomy of lung (2002) Family History Brother Age: 76 Leukemia in remission Mother Heart disease Father Stroke Sister No problems noted. Sister No problems noted. Social History household members: spouse and family Smoking Status: Former smoker alcohol intake: never Discharge Plan Discharge Plan Patient Disposition: Home Provider Discharge Comment: You were admitted to the hospital with a high calcium level and hiccups. Hiccups are due to the gastritis and esophagitis noted on your endoscopy. your home HCTZ is recommended to be stopped due to the high calcium being elevated. for hiccups continue PPI, gabapentin and baclofen. Recommend taking baclofen as needed three times a day after a couple of days if symptoms improving. Possible fungal infection seen on endoscopy, so we are empirically treating with fluconazole for 2 week total course. Discharge orders & Medications Prescriptions: New baclofen 10 mg tablet 10 mg PO TID 30 Days Qty: 90 0RF gabapentin 300 mg capsule 300 mg PO TID 30 Days Qty: 90 0RF pantoprazole 40 mg tablet,delayed release (DR/EC) 40 mg PO BID 30 Days Qty: 60 0RF fluconazole 200 mg tablet 400 mg PO DAILY 14 Days Qty: 28 0RF Continued MULTIVITAMIN (#MULTIPLE VITAMINS) 1 cap PO Q DAY Qty: 0 psyllium husk [Metamucil] 0.52 GM capsule 0.52 gm PO Q DAY Qty: 0 tadalafil 5 mg tablet 5 mg PO DAILY Qty: 90 3RF Rx Instructions: this was sent via a fax on 04/21/22 tadalafil 20 mg tablet 20 mg PO DAILY PRN (Reason: sexual activity) Qty: 100 3RF Rx Instructions: administer approximately 30min before sexual activity; do not use more than 1 dose per 24hrs tamsulosin 0.4 mg capsule See Rx Instructions .ROUTE .COMPLEX Qty: 180 3RF Dose Instruction: TAKE 2 CAPSULES DAILY Rx Instructions: TAKE 2 CAPSULES DAILY trazodone 50 mg tablet See Rx Instructions .ROUTE .COMPLEX Qty: 180 3RF Dose Instruction: TAKE 2 TABLETS AT BEDTIME NEEDED FOR INSOMNIA Rx Instructions: TAKE 2 TABLETS AT BEDTIME NEEDED FOR INSOMNIA testosterone [Testim] 50 mg/5 gram (1 %) gel 2 tube Topical DAILY Qty: 900 3RF simvastatin 20 mg tablet See Rx Instructions .ROUTE .COMPLEX Qty: 90 3RF Dose Instruction: TAKE 1 TABLET AT BEDTIME Rx Instructions: TAKE 1 TABLET AT BEDTIME DUE FOR LABS 12/04/22 lisinopril 40 mg tablet See Rx Instructions .ROUTE .COMPLEX Qty: 90 3RF Dose Instruction: TAKE 1 TABLET TWICE A DAY Rx Instructions: TAKE 1 TABLET daily latanoprost 0.005 % Drops 1 drp OPHTHALMIC (EYE) QPM Rx Instructions: glacoma prevention Discontinued hydrochlorothiazide 12.5 mg tablet See Rx Instructions .ROUTE .COMPLEX Qty: 90 3RF Dose Instruction: TAKE 1 TABLET DAILY Rx Instructions: TAKE 1 TABLET DAILY aspirin [Adult Aspirin Regimen] 81 mg tablet,delayed release (DR/EC) 81 mg PO DAILY Follow up/Referrals: Bill Galindo MD [Primary Care Provider] - 01/27/23 1:00 pm (appt:01/27 @ 1:[address] Galindo please arrive 15 min prior to sscheduled appointment time ) Diet/Activity/Treatments Diet: Diet as Tolerated and Regular Activity: As tolerated, no restrictions Visit Report/Discharge Packet Stand Alone Forms: Patient Portal/API, Stroke Signs & Symptoms Discharge Data Primary Care Provider: Bill Galindo Quality VTE Deep Vein Thrombosis/Pulmonary Embolism Present on Admission: No
[2023-01-22 01:36] LABS: Calcium 12.7 mg/dL (8.6-10.2); Parathyroid Hormone, Intact 11 pg/mL (15-65)
== END 2023-01-21 16:20 | disposition home or self-care (01) | DRG 378 ==
LOC: ED 11:53 → AC 12:27 → ICU 13:14
PROVIDERS: Surgery; Admitting Provider Internal Medicine; Emergency Provider Emergency Medicine; PCP Family Medicine; Visit Provider Internal Medicine
PROC: 0DJ08ZZ Inspection of Upper Intestinal Tract, Via Natural or Artificial Opening Endoscopic (ICD-10-PCS; CPT 43235; principal; 2023-01-21 12:15)
DX: K29.71 Gastritis, unspecified, with bleeding (principal); D62 Acute posthemorrhagic anemia; K20.91 Esophagitis, unspecified with bleeding; K27.9 Peptic ulcer, site unspecified, unspecified as acute or chronic, without hemorrhage or perforation; K21.9 Gastro-esophageal reflux disease without esophagitis; R06.6 Hiccough; E83.52 Hypercalcemia; I10 Essential (primary) hypertension; I48.0 Paroxysmal atrial fibrillation; D69.6 Thrombocytopenia, unspecified; N40.0 Benign prostatic hyperplasia without lower urinary tract symptoms; Z87.891 Personal history of nicotine dependence
CPT/HCPCS: 0241U; 36415; 43239; 74177; 80048; 80053; 81001; 82310; 82550; 83605; 83690; 83735; 83970; 84484; 85014; 85018; 85025; 85610; 85730; 86850; 86900; 86901; 87040; 87102; 87797; 93005; 94760; 96374; 96375; 99232; 99284; G0378; C9113; J2060; Q9967

== ENCOUNTER → 2023-02-16 06:55 | Outpatient (CLI) | payer MEDICARE, OTHER, SELFPAY ==
[2023-01-19 14:54] VITALS: BMI 27.0
[2023-02-16 08:23] LABS: Add Manual Diff / Slide Review NO; Basophils Absolute Auto 0 /uL (0-100); Basophils Percent Auto 0.5 % (0-2); Eosinophils Absolute Auto 400 /uL (0-450); Eosinophils Percent Auto 6.8 % (2-4); Hematocrit 33.1 % (41-53); Hemoglobin 10.9 g/dL (13.5-17.5); Lymphocytes Absolute Auto 1200 /uL (1100-4500); Lymphocytes Percent Auto 22.3 % (25-40); Mean Corpuscular HGB Conc 32.8 % (30-36); Mean Corpuscular Hemoglobin 29.1 PG (26-34); Mean Corpuscular Volume 88.6 fL (80-100); Monocytes Absolute Auto 600 /uL (0-900); Neutrophils Absolute Auto 3200 /uL (1500-7000); Neutrophils Percent Auto 58.4 % (50-75); Platelet Count 207 X10^3/uL (150-400); Red Blood Cell Count 3.74 X10^6/uL (4.5-5.9); Red Cell Distribution Width 15.2 % (11.6-14.8); White Blood Cell Count 5.4 X10^3/uL (4.5-11.0)
[2023-02-16 09:07] LABS: Alanine Aminotransferase 21 IU/L (<50); Albumin 3.8 g/dL (3.5-5.0); Albumin Globulin Ratio 1.4 (1.0-2.8); Alkaline Phosphatase 58 U/L (38-126); Aspartate Aminotransferase 30 IU/L (17-59); BUN Creatinine Ratio 22.4 (6-22); Bilirubin Total 0.7 mg/dL (0.2-1.3); Blood Urea Nitrogen 19 mg/dL (9-20); Calcium 9.5 mg/dL (8.4-10.2); Carbon Dioxide 29 mmol/L (22-32); Chloride 104 mmol/L (98-107); Cholesterol 185 mg/dL (140-199); Estimated Glomerular Filt Rate > 60 mL/min (>60); Globulin 2.7 g/dL (1.7-4.1); Glucose 111 mg/dL (80-110); HDL Cholesterol 45 mg/dL (40-60); HEMOLYSIS < 15 (0-50); LDL Cholesterol Calculated 113 mg/dL (<100); Potassium 4.5 mmol/L (3.4-5.1); Sodium 138 mmol/L (137-145); Total Protein 6.5 g/dL (6.3-8.2); Triglycerides 135 mg/dL (35-150)
[2023-02-17 14:09] LABS: Microalbumin Urine Random 1.6 mg/dL (0-1.6)
[2023-02-17 14:22] LABS: Creatinine Urine Random 158.7 mg/dL
[2023-02-18 09:32] LABS: Parathyroid Hormone, Intact 18 pg/mL (15-65)
== END ==
PROVIDERS: PCP Family Medicine; Referring Provider Family Medicine; Visit Provider Family Medicine
DX: E83.52 Hypercalcemia (principal); E11.9 Type 2 diabetes mellitus without complications; R79.89 Other specified abnormal findings of blood chemistry; E78.2 Mixed hyperlipidemia; I10 Essential (primary) hypertension; R73.9 Hyperglycemia, unspecified
CPT/HCPCS: 36415; 80053; 80061; 82043; 82310; 82570; 83036; 83970; 85025

== ENCOUNTER → 2023-04-03 09:06 | Outpatient (CLI) | payer MEDICARE, OTHER, SELFPAY ==
[2023-01-19 14:54] VITALS: BMI 27.0
[2023-04-03 10:08] LABS: Add Manual Diff / Slide Review NO; Basophils Absolute Auto 0 /uL (0-100); Basophils Percent Auto 0.8 % (0-2); Eosinophils Absolute Auto 400 /uL (0-450); Eosinophils Percent Auto 8.1 % (2-4); Hematocrit 34.2 % (41-53); Hemoglobin 10.7 g/dL (13.5-17.5); Lymphocytes Absolute Auto 1500 /uL (1100-4500); Lymphocytes Percent Auto 27.2 % (25-40); Mean Corpuscular HGB Conc 31.2 % (30-36); Mean Corpuscular Hemoglobin 24.7 PG (26-34); Mean Corpuscular Volume 79.2 fL (80-100); Monocytes Absolute Auto 600 /uL (0-900); Monocytes Percent Auto 11.4 % (3-14); Neutrophils Absolute Auto 2800 /uL (1500-7000); Neutrophils Percent Auto 52.5 % (50-75); Platelet Count 200 X10^3/uL (150-400); Red Blood Cell Count 4.31 X10^6/uL (4.5-5.9); Red Cell Distribution Width 18.3 % (11.6-14.8); White Blood Cell Count 5.4 X10^3/uL (4.5-11.0)
[2023-04-03 10:24] LABS: HEMOLYSIS < 15 (0-50); Iron 34 ug/dL (49-181)
[2023-04-03 10:27] LABS: Lactate Dehydrogenase 181 U/L (120-246)
[2023-04-03 10:34] LABS: Percent Iron Saturation 9 % (20-50); Total Iron Binding Capacity 400 ug/dL (261-462); Transferrin 349 mg/dL (206-381)
[2023-04-03 10:58] LABS: Ferritin 8 ng/mL (18-464)
== END ==
PROVIDERS: PCP Family Medicine; Referring Provider Family Medicine; Visit Provider Family Medicine
DX: Z00.00 Encounter for general adult medical examination without abnormal findings (principal); E83.52 Hypercalcemia; I48.0 Paroxysmal atrial fibrillation; E78.2 Mixed hyperlipidemia; I10 Essential (primary) hypertension; R73.9 Hyperglycemia, unspecified; K21.9 Gastro-esophageal reflux disease without esophagitis; K20.90 Esophagitis, unspecified without bleeding; D64.9 Anemia, unspecified; I35.0 Nonrheumatic aortic (valve) stenosis; R61 Generalized hyperhidrosis; D50.0 Iron deficiency anemia secondary to blood loss (chronic)
CPT/HCPCS: 36415; 82728; 83540; 83550; 83615; 85025

== ENCOUNTER 2023-04-09 13:48 | Day surgery (SDC) | payer MEDICARE, OTHER, SELFPAY ==
[2023-01-19 14:54] VITALS: BMI 27.0
--- NOTE | 2023-04-09 | PATH_ITS ---
[facility] Accession Number: [id number] No. of containers..04 Tissue . 01 Material submitted: . PART A: duodenum - DUODENUM PART B: stomach - ANTRUM PART C: colon - CARDIA PART D: esophagus, E-G Junction - GE JUNCTION . 01 Diagnosis: A. Duodenum, Biopsy: Duodenal mucosa with no diagnostic abnormality. Negative for active inflammation, features of sprue, dysplasia, or malignancy. . B. Gastric Antrum, Biopsy: Gastric antral mucosa with mild chronic inflammation. Negative for Helicobacter organisms by immunohistochemistry. Negative for intestinal metaplasia. Negative for dysplasia or malignancy. . C. Gastric Cardia, Biopsy: Gastric body mucosa with mild chronic inflammation. Negative for Helicobacter organisms by immunohistochemistry. Negative for intestinal metaplasia. Negative for dysplasia or malignancy. . D. Gastroesophageal Junction, Biopsy: Proximal gastric-type mucosa with mild chronic inflammation. Negative for specialized intestinal metaplasia on alcian blue stain. Negative for dysplasia or malignancy. [facility] 04/14/2023 1621 Local . 01 Electronically signed: . Avel Elmore MD, PhD, Pathologist NPI- [id number] . 01 Gross description: . Part A: DUODENUM: Received in formalin are 3 fragment(s) of virk, soft tissue measuring 0.1 x 0.1 x 0.1 cm to 0.4 x 0.2 x 0.2 cm submitted entirely in 1 cassette(s) Part B: ANTRUM: Received in formalin are 3 fragment(s) of virk, soft tissue measuring 0.2 x 0.2 x 0.2 cm to 0.4 x 0.2 x 0.2 cm submitted entirely in 1 cassette(s) Part C: CARDIA : Received in formalin are multiple fragment(s) of virk, soft tissue measuring 0.1 x 0.1 x 0.1 cm to 0.3 x 0.2 x 0.2 cm submitted entirely in 1 cassette(s) Part D: GE JUNCTION: Received in formalin are 2 fragment(s) of virk, soft tissue measuring 0.2 x 0.2 x 0.1 cm to 0.3 x 0.3 x 0.2 cm submitted entirely in 1 cassette(s) /NERISSA 04/10/2023 2254 Local . 01 Microscopic: . B. An immunohistochemical stain was performed to evaluate for Helicobacter organisms and is negative. The control stain showed appropriate reactivity. . C. An immunohistochemical stain was performed to evaluate for Helicobacter organisms and is negative. The control stain showed appropriate reactivity. . D. An AB/PAS stain is performed to evaluate for specialized intestinal metaplasia, and is negative for goblet cells. A control stain shows appropriate reactivity. . . * This test was developed and its performance characteristics determined by [facility]. It has not been cleared or approved by the U.S. Food and Drug Administration. The FDA has determined that such clearance or approval is not necessary. This test is used for clinical purposes. It should not be regarded as investigational or for research. . 01 Pathologist provided ICD-10: K29.70, K20.80 . 01 CPT . 799651, 090352, 573352, 357334, [id number], [id number] Specimen Comment: A courtesy copy of this report has been sent to [phone] Performed at: 01 [facility] [address] [place] [address], [place], [place] [id number] MD Sandeep Roldan MD Phone: [phone]
[2023-04-09 14:10] VITALS: BP 156/84; PULSE 65; RESP 16; TEMP 36.4; O2SAT 98
[2023-04-09] MEDS: LACTATED RINGERS 1,000 ML 42 ML IV (14:17)
--- NOTE | 2023-04-09 14:50 | P.HP_ITS ---
History of Present Illness History of Present Illness Date Patient Seen: 04/09/23 Time Patient Seen: 14:50 Chief complaint: EGD Narrative: Fareed is an 83-year-old man who presents with dyspepsia. He was seen ER here in January and Dr. Pinon took him for an EGD and reported on rather severe esophagitis which she presumed to be fungal in etiology. He was started on treatment for that but he continues to have symptoms of dyspepsia including reflux, eructation and abdominal pain. He had a colonoscopy in 2021 that was normal. [facility] Medical History Prediabetes Neuroforaminal stenosis of lumbar spine Spinal stenosis of lumbar region Foot drop, left Aortic stenosis Colon polyps Paroxysmal atrial fibrillation Hayfever (1995) Rheumatic fever (1956) Measles (1954) Chicken pox (1954) Hemorrhoids (2003) Hypertension (1995) Low testosterone in male Lung cancer (2002) BPH (benign prostatic hyperplasia) (2003) Surgical History Anesthesia History of prostate surgery (2005) Status post partial lobectomy of lung (2002) Family History Brother Age: 76 Leukemia in remission Mother Heart disease Father Stroke Sister No problems noted. Sister No problems noted. Social History household members: spouse and family Smoking Status: Former smoker alcohol intake: never Meds Home Medications and Allergies Home Medications Medication Instructions Recorded Confirmed Type MULTIVITAMIN (#MULTIPLE VITAMINS) 1 cap PO Q DAY ##0 09/19/10 04/02/23 History psyllium husk 0.52 gram capsule 0.52 gm PO Q DAY ##0 09/19/10 04/02/23 History (Metamucil) lisinopril 40 mg tablet See Rx Instructions .Route 12/04/22 04/09/23 Rx .COMPLEX #90 tabs simvastatin 20 mg tablet See Rx Instructions .Route 12/04/22 04/09/23 Rx .COMPLEX #90 tabs latanoprost 0.005 % eye drops 1 drp ophthalmic (eye) QPM 01/21/23 04/02/23 History tamsulosin 0.4 mg capsule See Rx Instructions .Route 01/27/23 04/02/23 Rx .COMPLEX #180 caps trazodone 50 mg tablet See Rx Instructions .Route 01/27/23 04/02/23 Rx .COMPLEX #180 tabs testosterone 50 mg/5 gram (1 %) 2 tube topical DAILY muscular 03/06/23 04/02/23 Rx transdermal gel (Testim) atrophy #900 grams tadalafil 20 mg tablet 20 mg PO DAILY PRN sexual activity 04/02/23 04/02/23 Rx #100 tabs ferrous sulfate 137 mg (45 mg 137 mg PO DAILY #90 tabs 04/03/23 Rx iron) tablet,extended release (Slow Fe) pantoprazole 40 mg tablet,delayed 40 mg PO BID #180 tabs 04/08/23 04/09/23 Rx release Allergies Allergy/AdvReac Type Severity Reaction Status Date / Time No Known Drug Allergies Allergy Verified 04/02/23 09:37 Exam Vital Signs (past 8 hours): - 04/09/23 14:10 Temperature 97.6 F Pulse Rate 65 Respiratory Rate 16 Blood Pressure 156/84 H Pulse Oximetry 98 Oxygen Delivery Method Room Air Oxygen Delivery Method Room Air Const General: No acute distress Resp Effort & Inspection: normal respiratory effort Assessment & Plan Assessment and plan (1) Dyspepsia: Status: Acute Plan We reviewed the risks and benefits of EGD for dyspepsia and he would like to proceed.
--- NOTE | 2023-04-09 15:20 | PM.OP.EGD ---
Operative Date/Time/Diagnoses Date of procedure: 04/09/23 Time of procedure: 15:20 Pre-op diagnosis: Dyspepsia Post-op diagnosis: same Procedure & Clinicians Study performed: Esophagogastroduodenoscopy Same procedure as scheduled: Yes Surgeon: Axel Guo Procedure Notes Procedure in detail: Surgeon: Axel Guo MD Anesthesia: Milagro Miller CRNA A timeout was performed. A bite blocked was placed. The patient was positioned in the left lateral decubitus position. Anesthesia was administered. The endoscope was inserted through the bite block and passed through the esophagus and stomach and into the duodenum. The duodenal mucosa was inflamed and random biopsies were taken with cold forceps. The scope was withdrawn into the stomach. There was antritis and random biopsies were taken from the antrum with cold forceps. The scope was retroflexed and a small hiatal hernia was noted and there were some inflammation of the mucosa around the cardia. Random biopsies were taken from the cardia with forceps. The scope was withdrawn into the esophagus the hiatal hernia was again noted and biopsies were taken from the GE junction. No esophagitis was observed. The scope was withdrawn. The patient was awakened and brought to recovery. Sedation time: 10 minutes Findings: Duodenitis, antritis and gastritis. No gross esophagitis Post-procedure Disposition: PACU
[2023-04-09 15:22] VITALS: BP 115/77; PULSE 71; RESP 15; TEMP 37.2; O2SAT 97
[2023-04-09 15:27] VITALS: BP 115/69; PULSE 70; RESP 12; TEMP 37.2; O2SAT 97
[2023-04-09 15:33] VITALS: BP 122/79; PULSE 69; RESP 11; TEMP 37.1; O2SAT 97
[2023-04-09 15:40] VITALS: BP 120/71; PULSE 65; RESP 14; O2SAT 98
== END 2023-04-09 15:50 | disposition home or self-care (01) ==
PROVIDERS: PCP Family Medicine; Referring Provider Surgery; Visit Provider Surgery
PROC: 0DJ08ZZ Inspection of Upper Intestinal Tract, Via Natural or Artificial Opening Endoscopic (ICD-10-PCS; CPT 43235; principal; 2023-04-09 14:45)
DX: K21.9 Gastro-esophageal reflux disease without esophagitis (principal); K20.90 Esophagitis, unspecified without bleeding; R10.13 Epigastric pain; K44.9 Diaphragmatic hernia without obstruction or gangrene; I10 Essential (primary) hypertension; Z87.891 Personal history of nicotine dependence; I48.0 Paroxysmal atrial fibrillation
CPT/HCPCS: 43239

== ENCOUNTER → 2023-06-23 06:50 | Outpatient (CLI) | payer MEDICARE, OTHER, SELFPAY ==
[2023-01-19 14:54] VITALS: BMI 27.0
[2023-06-23 07:54] LABS: Add Manual Diff / Slide Review NO; Basophils Absolute Auto 0 /uL (0-100); Basophils Percent Auto 0.4 % (0-2); Eosinophils Absolute Auto 500 /uL (0-450); Eosinophils Percent Auto 6.9 % (2-4); Hematocrit 43.9 % (41-53); Hemoglobin 14.1 g/dL (13.5-17.5); Lymphocytes Absolute Auto 1500 /uL (1100-4500); Lymphocytes Percent Auto 22.3 % (25-40); Mean Corpuscular HGB Conc 32.2 % (30-36); Mean Corpuscular Hemoglobin 26.3 PG (26-34); Mean Corpuscular Volume 81.7 fL (80-100); Monocytes Absolute Auto 700 /uL (0-900); Monocytes Percent Auto 10.1 % (3-14); Neutrophils Absolute Auto 4000 /uL (1500-7000); Neutrophils Percent Auto 60.3 % (50-75); Platelet Count 150 X10^3/uL (150-400); Red Blood Cell Count 5.37 X10^6/uL (4.5-5.9); Red Cell Distribution Width 27.7 % (11.6-14.8); White Blood Cell Count 6.6 X10^3/uL (4.5-11.0)
[2023-06-23 08:13] LABS: Alanine Aminotransferase 22 IU/L (<50); Albumin 4.5 g/dL (3.5-5.0); Albumin Globulin Ratio 1.7 (1.0-2.8); Alkaline Phosphatase 68 U/L (38-126); Aspartate Aminotransferase 32 IU/L (17-59); BUN Creatinine Ratio 27.7 (6-22); Bilirubin Total 0.5 mg/dL (0.2-1.3); Blood Urea Nitrogen 28 mg/dL (9-20); Calcium 9.5 mg/dL (8.4-10.2); Carbon Dioxide 27 mmol/L (22-32); Chloride 109 mmol/L (98-107); Estimated Glomerular Filt Rate > 60 mL/min (>60); Globulin 2.7 g/dL (1.7-4.1); Glucose 95 mg/dL (80-110); HEMOLYSIS < 15 (0-50); Iron 59 ug/dL (49-181); Potassium 4.5 mmol/L (3.4-5.1); Sodium 141 mmol/L (137-145); Total Protein 7.2 g/dL (6.3-8.2)
[2023-06-23 08:17] LABS: Dimorphic RBC PRESENT
[2023-06-23 08:24] LABS: Percent Iron Saturation 17 % (20-50); Total Iron Binding Capacity 343 ug/dL (261-462); Transferrin 276 mg/dL (206-381)
== END ==
LOC: LAB 06:51
PROVIDERS: PCP Family Medicine; Referring Provider Internal Medicine Hematology & Oncology; Visit Provider Internal Medicine Hematology & Oncology
DX: D64.9 Anemia, unspecified (principal)
CPT/HCPCS: 36415; 80053; 83540; 83550; 85025; 85045

== ENCOUNTER 2023-07-13 06:53 | Day surgery (SDC) | payer MEDICARE, OTHER, SELFPAY ==
[2023-01-19 14:54] VITALS: BMI 27.0
--- NOTE | 2023-07-13 | PATH_ITS ---
[facility] Accession Number: [id number] No. of containers..01 Tissue . 01 Material submitted: . colon - ASCENDING POLYPS . 01 Diagnosis: ASCENDING POLYPS: 1. Tubular adenoma. 2. Colonic mucosa with benign lymphoid aggregate. [facility] 07/17/2023 1120 Local . 01 Electronically signed: . Sandeep Roldan MD, Pathologist NPI- [id number] . 01 Gross description: . ASCENDING POLYPS: Received in formalin are 2 fragment(s) of virk, soft tissue measuring 0.5 x 0.3 x 0.2 cm to 0.6 x 0.3 x 0.3 cm submitted entirely in 1 cassette(s) /NERISSA 07/17/20230 Local . 01 Pathologist provided ICD-10: D12.2 . 01 CPT . 366040 Specimen Comment: A courtesy copy of this report has been sent to [phone] Performed at: 01 [facility] [address] [place] [address] [address] [facility], [place], [place] [id number] MD Sandeep Roldan MD Phone: [phone]
[2023-07-13 07:23] VITALS: BP 159/90; PULSE 70; RESP 16; TEMP 36.4; O2SAT 99
--- NOTE | 2023-07-13 08:07 | P.HP_ITS ---
History of Present Illness History of Present Illness Date Patient Seen: 07/13/23 Time Patient Seen: 08:07 Chief complaint: Colonoscopy Narrative: Fareed is here for a colonoscopy because of anemia. His last hemoglobin was 14. He did have a colonoscopy by Dr. Pinon in 2022. He had a recent EGD this year that showed some mild inflammation of the stomach and duodenum. There were no ulcers. [facility] Medical History Prediabetes Neuroforaminal stenosis of lumbar spine Spinal stenosis of lumbar region Foot drop, left Aortic stenosis Colon polyps Paroxysmal atrial fibrillation Hayfever (1995) Rheumatic fever (1956) Measles (1954) Chicken pox (1954) Hemorrhoids (2003) Hypertension (1995) Low testosterone in male Lung cancer (2002) BPH (benign prostatic hyperplasia) (2003) Surgical History Anesthesia History of prostate surgery (2005) Status post partial lobectomy of lung (2002) Family History Brother Age: 76 Leukemia in remission Mother Heart disease Father Stroke Sister No problems noted. Sister No problems noted. Social History household members: spouse and family Smoking Status: Former smoker alcohol intake: never Meds Home Medications and Allergies Home Medications Medication Instructions Recorded Confirmed Type MULTIVITAMIN (#MULTIPLE VITAMINS) 1 cap PO Q DAY ##0 09/19/10 07/13/23 History psyllium husk 0.52 gram capsule 0.52 gm PO Q DAY ##0 09/19/10 07/13/23 History (Metamucil) lisinopril 40 mg tablet See Rx Instructions .Route 12/04/22 07/13/23 Rx .COMPLEX #90 tabs simvastatin 20 mg tablet See Rx Instructions .Route 12/04/22 07/13/23 Rx .COMPLEX #90 tabs latanoprost 0.005 % eye drops 1 drp ophthalmic (eye) QPM 01/21/23 07/13/23 History tamsulosin 0.4 mg capsule See Rx Instructions .Route 01/27/23 07/13/23 Rx .COMPLEX #180 caps trazodone 50 mg tablet See Rx Instructions .Route 01/27/23 07/13/23 Rx .COMPLEX #180 tabs testosterone 50 mg/5 gram (1 %) 2 tube topical DAILY muscular 03/06/23 06/29/23 Rx transdermal gel (Testim) atrophy #900 grams ferrous sulfate 137 mg (45 mg 137 mg PO DAILY #90 tabs 04/03/23 07/13/23 Rx iron) tablet,extended release (Slow Fe) pantoprazole 40 mg tablet,delayed 40 mg PO BID #180 tabs 04/08/23 07/13/23 Rx release tadalafil 20 mg tablet 20 mg PO DAILY PRN sexual activity 06/10/23 06/29/23 Rx #100 tabs sodium,potassium,mag sulfates 17.5 See Rx Instructions PO .COMPLEX 06/23/23 07/13/23 Rx gram-3.13 gram-1.6 gram oral soln #354 mL (Suprep Bowel Prep Kit) tadalafil 5 mg tablet 5 mg PO DAILY #90 tabs 07/08/23 Rx Allergies Allergy/AdvReac Type Severity Reaction Status Date / Time No Known Drug Allergies Allergy Verified 06/29/23 13:12 Exam Vital Signs (past 8 hours): - 07/13/23 07:23 Temperature 97.6 F Pulse Rate 70 Respiratory Rate 16 Blood Pressure 159/90 H Pulse Oximetry 99 Oxygen Delivery Method Room Air Oxygen Delivery Method Room Air Const General: healthy appearing Resp Effort & Inspection: normal respiratory effort Assessment & Plan Assessment and plan (1) Anemia: Qualifiers: Anemia type: unspecified type Qualified Code(s): D64.9 - Anemia, unspecified Status: Acute Plan We will plan to proceed with colonoscopy as recommended by his client service coordinator/oncologist.
--- NOTE | 2023-07-13 08:36 | PM.OP.COLON ---
Operative Date/Time/Diagnoses Date of procedure: 07/13/23 Time of procedure: 08:36 Pre-op diagnosis: Anemia Post-op diagnosis: same Procedure & Clinicians Study performed: Colonoscopy Same procedure as scheduled: Yes Surgeon: Axel Guo Procedure Notes Procedure in detail: Surgeon: Axel Guo MD Anesthesia: Destinee Herndon DO Procedure: The patient was brought to the endoscopy suite, placed in left lateral decubitus position. The patient was connected to monitoring devices. A time-out was performed. Sedation was administered. Once the patient was adequately sedated, a digital rectal exam was performed and was normal. The scope was then inserted and advanced to the cecum where the appendiceal orifice was identified and photographed. The scope was then slowly withdrawn over greater than 6 minutes. The mucosa was thoroughly inspected. There were 2 small polyps found in the ascending colon and removed with a cold snare and sent together. There was some moderate sigmoid diverticulosis. No other abnormalities were noted. The scope was retroflexed in the rectum. No other abnormalities were seen. The scope was straightened and removed. The patient was awakened and brought to recovery. Scope withdrawal time: 8 minutes Sedation time: 17 minutes EBL: 2 mL Findings: 2 small ascending polyps and sigmoid colon diverticulosis Post-procedure Disposition: PACU
[2023-07-13 08:38] VITALS: BP 121/78; PULSE 61; RESP 13; TEMP 36.8; O2SAT 96
[2023-07-13 08:43] VITALS: BP 118/76; PULSE 60; RESP 14; O2SAT 94
[2023-07-13 08:49] VITALS: BP 127/84; PULSE 72; RESP 18; TEMP 36.7; O2SAT 94
[2023-07-13 09:04] VITALS: BP 149/86; PULSE 92; RESP 16; TEMP 36.6; O2SAT 98
== END 2023-07-13 09:25 | disposition home or self-care (01) ==
PROVIDERS: PCP Family Medicine; Referring Provider Surgery; Visit Provider Surgery
PROC: 0DJD8ZZ Inspection of Lower Intestinal Tract, Via Natural or Artificial Opening Endoscopic (ICD-10-PCS; CPT 45378; principal; 2023-07-13 08:15)
DX: D64.9 Anemia, unspecified (principal); K57.30 Diverticulosis of large intestine without perforation or abscess without bleeding; D12.2 Benign neoplasm of ascending colon
CPT/HCPCS: 45385; J2704

== ENCOUNTER → 2023-12-17 07:05 | Outpatient (CLI) | payer MEDICARE, OTHER, SELFPAY ==
[2023-01-19 14:54] VITALS: BMI 27.0
[2023-12-17 08:35] LABS: Add Manual Diff / Slide Review NO; Basophils Absolute Auto 0 /uL (0-100); Basophils Percent Auto 0.6 % (0-2); Eosinophils Absolute Auto 400 /uL (0-450); Hematocrit 50.7 % (41-53); Lymphocytes Absolute Auto 1600 /uL (1100-4500); Lymphocytes Percent Auto 24.6 % (25-40); Mean Corpuscular HGB Conc 33.5 % (30-36); Mean Corpuscular Hemoglobin 31.1 PG (26-34); Mean Corpuscular Volume 92.9 fL (80-100); Monocytes Absolute Auto 800 /uL (0-900); Monocytes Percent Auto 12.6 % (3-14); Neutrophils Absolute Auto 3600 /uL (1500-7000); Neutrophils Percent Auto 56.2 % (50-75); Platelet Count 132 X10^3/uL (150-400); Red Blood Cell Count 5.46 X10^6/uL (4.5-5.9); Red Cell Distribution Width 16.3 % (11.6-14.8); White Blood Cell Count 6.4 X10^3/uL (4.5-11.0)
[2023-12-17 08:50] LABS: Alanine Aminotransferase 21 IU/L (<50); Albumin 4.2 g/dL (3.5-5.0); Albumin Globulin Ratio 1.6 (1.0-2.8); Alkaline Phosphatase 82 U/L (38-126); Aspartate Aminotransferase 30 IU/L (17-59); BUN Creatinine Ratio 24.3 (6-22); Bilirubin Total 0.4 mg/dL (0.2-1.3); Blood Urea Nitrogen 25 mg/dL (9-20); Carbon Dioxide 26 mmol/L (22-32); Chloride 106 mmol/L (98-107); Cholesterol 200 mg/dL (140-199); Estimated Glomerular Filt Rate > 60 mL/min (>60); Globulin 2.6 g/dL (1.7-4.1); Glucose 112 mg/dL (80-110); HDL Cholesterol 61 mg/dL (40-60); HEMOLYSIS < 15 (0-50); Iron 48 ug/dL (49-181); LDL Cholesterol Calculated 112 mg/dL (<100); Potassium 4.4 mmol/L (3.4-5.1); Sodium 138 mmol/L (137-145); Total Protein 6.8 g/dL (6.3-8.2); Triglycerides 137 mg/dL (35-150)
[2023-12-17 09:02] LABS: Percent Iron Saturation 14 % (20-50); Total Iron Binding Capacity 332 ug/dL (261-462); Transferrin 263 mg/dL (206-381)
[2023-12-17 09:21] LABS: Prostate Specific Antigen 1.76 ng/mL (0.10-4.00)
[2023-12-17 09:25] LABS: Ferritin 22 ng/mL (18-464)
== END ==
PROVIDERS: PCP Family Medicine; Referring Provider Family Medicine; Visit Provider Family Medicine
DX: E11.9 Type 2 diabetes mellitus without complications (principal); N40.1 Benign prostatic hyperplasia with lower urinary tract symptoms; R01.1 Cardiac murmur, unspecified; D64.9 Anemia, unspecified; R79.89 Other specified abnormal findings of blood chemistry; I10 Essential (primary) hypertension; N13.8 Other obstructive and reflux uropathy; E78.2 Mixed hyperlipidemia
CPT/HCPCS: 36415; 80053; 80061; 82728; 83540; 83550; 84153; 84402; 84403; 85025

== ENCOUNTER → 2024-06-25 08:15 | Outpatient (CLI) | payer MEDICARE, OTHER, SELFPAY ==
[2023-01-19 14:54] VITALS: BMI 27.0
[2024-06-25 09:10] LABS: Add Manual Diff / Slide Review NO; Basophils Absolute Auto 0 /uL (0-100); Basophils Percent Auto 0.2 % (0-2); Eosinophils Absolute Auto 400 /uL (0-450); Eosinophils Percent Auto 5.7 % (2-4); Hematocrit 49.8 % (41-53); Hemoglobin 17.3 g/dL (13.5-17.5); Lymphocytes Absolute Auto 1400 /uL (1100-4500); Lymphocytes Percent Auto 22.2 % (25-40); Mean Corpuscular HGB Conc 34.7 % (30-36); Mean Corpuscular Hemoglobin 34.1 PG (26-34); Mean Corpuscular Volume 98.3 fL (80-100); Monocytes Absolute Auto 800 /uL (0-900); Monocytes Percent Auto 11.8 % (3-14); Neutrophils Absolute Auto 3900 /uL (1500-7000); Neutrophils Percent Auto 60.1 % (50-75); Platelet Count 121 X10^3/uL (150-400); Red Blood Cell Count 5.07 X10^6/uL (4.5-5.9); Red Cell Distribution Width 13.2 % (11.6-14.8); White Blood Cell Count 6.5 X10^3/uL (4.5-11.0)
== END ==
LOC: LAB 08:18
PROVIDERS: PCP Family Medicine; Referring Provider Physician Assistant; Visit Provider Physician Assistant
DX: I48.0 Paroxysmal atrial fibrillation (principal); I10 Essential (primary) hypertension; I35.0 Nonrheumatic aortic (valve) stenosis; K21.9 Gastro-esophageal reflux disease without esophagitis; Z86.39 Personal history of other endocrine, nutritional and metabolic disease
CPT/HCPCS: 36415; 85025

== ENCOUNTER → 2024-08-19 08:37 | Outpatient (CLI) | payer MEDICARE, OTHER, SELFPAY ==
[2023-01-19 14:54] VITALS: BMI 27.0
[2024-08-31 21:38] LABS: Percent Free Testosterone 4.89 % (1.50-4.20); Testosterone Free 52.08 ng/dL (5.00-21.00); Testosterone Total 1065.1 ng/dL (264.0-916.0)
== END ==
PROVIDERS: PCP Family Medicine; Referring Provider Family Medicine; Visit Provider Family Medicine
DX: R79.89 Other specified abnormal findings of blood chemistry (principal)
CPT/HCPCS: 36415; 84402; 84403

== ENCOUNTER → 2024-12-08 07:14 | Outpatient (CLI) | payer MEDICARE, OTHER, SELFPAY ==
[2023-01-19 14:54] VITALS: BMI 27.0
[2024-12-08 08:47] LABS: Alanine Aminotransferase 24 IU/L (<50); Albumin 4.5 g/dL (3.5-5.0); Albumin Globulin Ratio 1.7 (1.0-2.8); Alkaline Phosphatase 68 U/L (38-126); Blood Urea Nitrogen 30 mg/dL (9-20); Calcium 10.0 mg/dL (8.4-10.2); Carbon Dioxide 29 mmol/L (22-32); Chloride 100 mmol/L (98-107); Cholesterol 185 mg/dL (140-199); Estimated Glomerular Filt Rate 52 mL/min (>60); Globulin 2.7 g/dL (1.7-4.1); Glucose 117 mg/dL (70-99); HDL Cholesterol 46 mg/dL (40-60); HEMOLYSIS < 15 (0-50); Potassium 5.1 mmol/L (3.4-5.1); Sodium 138 mmol/L (137-145); Total Protein 7.2 g/dL (6.3-8.2); Triglycerides 118 mg/dL (35-150)
[2024-12-08 09:06] LABS: Add Manual Diff / Slide Review NO; Hematocrit 52.0 % (41-53); Hemoglobin 17.7 g/dL (13.5-17.5); Lymphocytes Absolute Auto 1400 /uL (1100-4500); Mean Corpuscular HGB Conc 34.1 % (30-36); Mean Corpuscular Hemoglobin 33.2 PG (26-34); Mean Corpuscular Volume 97.4 fL (80-100); Platelet Count 122 X10^3/uL (150-400)
[2024-12-18 14:39] LABS: Percent Free Testosterone 2.54 % (1.50-4.20)
== END ==
PROVIDERS: PCP Family Medicine; Referring Provider Family Medicine; Visit Provider Family Medicine
DX: E78.2 Mixed hyperlipidemia (principal); Z12.5 Encounter for screening for malignant neoplasm of prostate; I10 Essential (primary) hypertension; E83.52 Hypercalcemia; I48.0 Paroxysmal atrial fibrillation; E29.1 Testicular hypofunction; R79.89 Other specified abnormal findings of blood chemistry
CPT/HCPCS: 36415; 80053; 80061; 84402; 84403; 85025; G0103

== ENCOUNTER → 2024-12-27 11:01 | Outpatient (CLI) | payer MEDICARE, OTHER, SELFPAY ==
[2023-01-19 14:54] VITALS: BMI 27.0
[2024-12-27 12:37] LABS: Alanine Aminotransferase 22 IU/L (<50); Albumin 4.5 g/dL (3.5-5.0); Albumin Globulin Ratio 1.6 (1.0-2.8); Alkaline Phosphatase 60 U/L (38-126); Blood Urea Nitrogen 24 mg/dL (9-20); Calcium 9.4 mg/dL (8.4-10.2); Carbon Dioxide 27 mmol/L (22-32); Chloride 101 mmol/L (98-107); Estimated Glomerular Filt Rate > 60 mL/min (>60); Globulin 2.8 g/dL (1.7-4.1); Glucose 107 mg/dL (70-99); HEMOLYSIS 22 (0-50); Potassium 4.6 mmol/L (3.4-5.1); Sodium 136 mmol/L (137-145); Total Protein 7.3 g/dL (6.3-8.2)
[2024-12-27 13:13] LABS: Appearance Urine UA CLEAR; Bilirubin Urine UA NEGATIVE (NEGATIVE); Color Urine UA YELLOW; Glucose Urine UA NEGATIVE (Negative); Ketones Urine UA TRACE (NEGATIVE); Leukocyte Esterase Urine UA NEGATIVE (NEGATIVE); Nitrite Urine UA NEGATIVE (Negative); Occult Blood Urine UA NEGATIVE (Negative); Protein Urine UA NEGATIVE (Negative); Specific Gravity Urine UA 1.010 (1.000-1.035); Urobilinogen Urine UA 1.0 E.U./dL (0.2); pH Urine UA 7.0 (4.5-8.0)
[2024-12-27 13:21] LABS: Culture Indicated Urine Cult Not Indicated
== END ==
PROVIDERS: PCP Family Medicine; Referring Provider Family Medicine; Visit Provider Family Medicine
DX: R10.A1 Flank pain, right side (principal); N17.9 Acute kidney failure, unspecified
CPT/HCPCS: 36415; 80053; 81001

== ENCOUNTER → 2024-12-27 13:46 | Outpatient (CLI) | payer MEDICARE, OTHER, SELFPAY ==
[2023-01-19 14:54] VITALS: BMI 27.0
--- NOTE | 2024-12-27 13:47 | DI.CT.S_ITS ---
PROCEDURE: CT ABDOMEN PELVIS WO CON INDICATIONS: Eval for Kidney stone, right flank pain TECHNIQUE: CT of the abdomen and pelvis was obtained without intravenous contrast. Coronal and sagittal reformats were performed. For radiation dose reduction, the following was used: automated exposure control, adjustment of mA and/or kV according to patient size. COMPARISON: None. FINDINGS: Image quality: Diagnostic. Lower Chest: Valvular calcifications. Small hiatal hernia. ABDOMEN: Liver: No contour-deforming mass. Gallbladder: No radiopaque gallstones or wall thickening. Biliary ducts: No biliary dilation. Pancreas: No ductal dilation. Spleen: Size is within normal limits. Calcified granuloma. Adrenal Glands: No adrenal nodules. Kidneys and Ureters: No hydronephrosis. No contour-deforming mass. Small burden of bilateral punctate nonobstructing nephrolithiasis. Stomach and Bowel: Normal colonic caliber, without significant wall thickening. Colonic diverticulosis without evidence of diverticulitis. Normal appendix. Peritoneum: No abnormal intraperitoneal fluid. No free air. Ventral Wall: No significant hernia. Abdominal Nodes: No retroperitoneal or mesenteric adenopathy by size criteria. Vessels: Aorta and inferior vena cava are normal in size. PELVIS: Pelvic Organs: Prostatomegaly. Bladder: Unremarkable. Pelvic Nodes: No enlarged lymph nodes. Miscellaneous: No inguinal hernias are seen. Bones: No aggressive osseous abnormality. Degenerative disc disease of the lumbar spine. Grade 1 anterolisthesis of L5 on S1 due to facet arthrosis. IMPRESSION: Small burden of bilateral nonobstructing nephrolithiasis. No hydronephrosis. Normal appendix. Normal gallbladder. Colonic diverticulosis without evidence of diverticulitis. Dictated by: Fareed Louise M.D. on 12/27/2024 at 14:09 Approved by: Fareed Louise M.D. on 12/27/2024 at 14:11
== END ==
LOC: CT 13:47
PROVIDERS: PCP Family Medicine; Referring Provider Family Medicine; Visit Provider Family Medicine
DX: N20.0 Calculus of kidney (principal); K57.30 Diverticulosis of large intestine without perforation or abscess without bleeding; K44.9 Diaphragmatic hernia without obstruction or gangrene; N17.9 Acute kidney failure, unspecified; N40.1 Benign prostatic hyperplasia with lower urinary tract symptoms; N13.8 Other obstructive and reflux uropathy; R10.A1 Flank pain, right side
CPT/HCPCS: 36415; 74176; 80053; 81001